=== PATIENT | female | born 1965 | race Caucasian/White ===

== ENCOUNTER 2023-10-09 08:22 | Outpatient (OUT) | payer OTHER, SELFPAY ==
--- NOTE | 2023-10-09 08:24 | MM_ITS ---
Patient Name: MEAGAN LANGE MR#: [id number] : 1965 Exam Date: 10/09/2023 Ordering Doctor: DR Machelle Harmon M.D. RADIOLOGY REPORT PROCEDURE: MM TOMOSYNTHESIS SCREENING BI COMPARISON: MG MAMM LINNETTE SCRN W CAD DIG, 08/10/2012. INDICATIONS: Screening Calculator Name NCI Breast Cancer Risk Assessment Tool 5 Year Breast Cancer Risk 1.40% Lifetime Breast Cancer Risk 8.70% Personal Breast Cancer No Personal Ovarian Cancer No Treatments None Family Cancers None LOCATION: The [facility] BREAST COMPOSITION: There are scattered areas of fibroglandular density. FINDINGS: DIAGNOSTIC CATEGORY 2--BENIGN FINDING. NO CHANGE FROM COMPARISON. Scattered benign-appearing calcifications are present. Scattered benign-appearing lymph nodes are present. RIGHT BREAST: No significant suspicious finding. LEFT BREAST: No significant suspicious finding. RECOMMENDATIONS: ROUTINE MAMMOGRAM AND CLINICAL EVALUATION IN 12 MONTHS. PLEASE NOTE: A NORMAL MAMMOGRAM DOES NOT EXCLUDE THE POSSIBILITY OF BREAST CANCER. A CLINICALLY SUSPICIOUS PALPABLE LUMP SHOULD BE BIOPSIED. Dictated by: Kedar White MD on 10/09/2023 at 11:11 Approved by: Kedar White MD on 10/09/2023 at 11:13
== END 2023-10-09 08:23 | disposition home or self-care (01) ==
LOC: MAMMO 08:22
PROVIDERS: PCP Family Medicine; Visit Provider Family Medicine
DX: Z12.31 Encounter for screening mammogram for malignant neoplasm of breast (principal)
CPT/HCPCS: 77063; 77067

== ENCOUNTER 2024-02-26 08:42 | Emergency (ER) | payer OTHER, SELFPAY ==
[2024-02-26] VITALS (20 sets, daily range): BP systolic 76–125; BP diastolic 47–79; PULSE 49–93; TEMP 36.8; O2SAT 90–97; BMI 28.3
--- NOTE | 2024-02-26 09:02 | ECG_ITS ---
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
--- NOTE | 2024-02-26 09:11 | ED.GENADUL1 ---
HPI HPI - General Adult General Chief complaint: Shortness of Breath/Dyspnea Stated complaint: DIFFICULTY BREATHING Time Seen by Provider: 02/26/24 09:03 Source: patient Mode of arrival: walk-in Limitations: no limitations History of Present Illness HPI narrative: Patient is a 58-year-old female who is presenting to the ER today with chief complaint of sinus congestion for the past 6 days, also has dry cough for the past 6 days, sore throat with sinus drainage. Patient has some midepigastric discomfort. She has no heavy chest pressure, no significant chest tightness. She does have chest wall pain with coughing. Patient has mild nausea, no vomiting. Patient has no rash. No recent traveling. No cardiac history. No acute complaints. Patient states she is having some numbness and tingling to bilateral hands, she is taking short shallow breaths, panting like a dog, and may be hyperventilating. All systems are negative except as noted/marked. All systems reviewed and otherwise negative. Nurses note and vital signs reviewed and patient is not hypoxic. General: The patient appears well and in no apparent distress. Patient is resting comfortably on cart. Patient is not toxic, lethargic, or listless Skin: Warm, dry, no pallor noted. There is no rash noted. No petechiae, purpura. Head: Normocephalic, atraumatic, mild to moderate tenderness to palpation to bilateral frontal maxillary sinus. Eye: Normal conjunctiva, no drainage, EOMI. PERRL Ears, Nose, Mouth, and Throat: oral mucosa is moist. Patient has redness to the posterior pharynx, moderate erythema, cobblestoning noted, no unilateral swelling, no signs of other intraoral pathology, no posterior pharyngeal exudate, petechiae. Nares patent. Mouth without vesicles. Cardiovascular: Regular Rate and Rhythm, no murmur, gallop, rub Respiratory: Patient is in no distress, no accessory muscle use, lungs equal bilateral, decreased breath sounds bilateral, faint wheezing to upper lobes bilateral, poor inspiratory effort. Back: non-tender, no CVA tenderness bilaterally to percussion. No CT LS midline pain GI: Mild midepigastric tenderness to palpation no tenderness to palpation, no masses appreciated. No rebound, guarding, or rigidity noted. No distention. No pulsatile mass. No flank pain bilateral. No peritoneal signs. No suprapubic tenderness palpation Musculoskeletal: Patient has full range of motion of all of the extremities, no motor, sensory, or focal neurological deficits Neurological: A&O x4, normal speech Psychiatric: Cooperative Related Data Home Medications ?Medication ?Instructions ?Recorded ?Confirmed No Known Home Medications 02/26/24 02/26/24 Allergies Allergy/AdvReac Type Severity Reaction Status Date / Time promethazine (From Phenergan) Allergy Anaphylaxis Verified 02/26/24 08:56 Opioid HPI Opioid Management Most Recent Opioid Data: No Data to Display PFSH PFSH Social History Little interest or pleasure in doing things: not at all Feeling down, depressed, or hopeless: not at all Exam Constitutional Vital Signs, click to edit/add: Last Vital Signs Temp 98.2 F 02/26/24 08:57 Pulse 82 02/26/24 13:26 Resp 34 H 02/26/24 13:26 BP 114/75 02/26/24 13:26 Pulse Ox 91 L 02/26/24 13:26 O2 Del Method Room Air 02/26/24 10:57 Course Vital Signs Vital signs: Vital Signs Pulse Oximetry 97 02/26/24 08:50 Temperature 98.2 F 02/26/24 08:57 Pulse Rate 82 02/26/24 13:26 Respiratory Rate 34 H 02/26/24 13:26 Blood Pressure 114/75 02/26/24 13:26 Pulse Oximetry 91 L 02/26/24 13:26 Oxygen Delivery Method Room Air 02/26/24 10:57 Medical Decision Making [facility] Narrative Medical decision making narrative: Patient is a smoker, patient is presenting with sinusitis, bronchitis symptoms. Patient has mild shortness of breath at rest or with exertion, the patient states she has pain taking a deep breath secondary to chest wall pain from coughing for the past 6 days. Patient's had a dry cough. Patient has used Sudafed 1 day, and Tylenol with little relief. Son is at bedside. Patient has no cardiac history. She has no heavy chest pressure, tightness, no other acute complaints. She does have sinus pressure to her forehead and cheeks. 1045 patient's repeat troponin was 38,343. The initial troponin was 34,000, 847. This was repeated because patient has no significant chest tightness, she does have shortness of breath with deep inspiration but she states is because of the chest wall pain secondary to coughing for the past 6 days. 1140 I have spoken to Dr. León. He is aware the case, accepts transfer and consultation. He agrees with aspirin, also recommends starting heparin drip and no bolus secondary to chest tightness, shortness of breath. 1245 3rd EKG was done, EKG interpretation shows normal sinus rhythm at 78 beats a minute. Normal axis deviation. Artifact noted. No acute ST elevation, no acute ectopy. QTc of 425. No ST elevation, no significant changes. Patient is having midepigastric pain, patient was given small dose of morphine to help take the edge off her pain, along with performing a CT of the chest abdomen pelvis to make sure not missing any other acute abnormality that could be liver related to patient's significantly elevated troponin. Patient does feel like she is breathing better after Toradol, Solu-Medrol, and DuoNeb breathing treatment was done. 1255 we are still waiting for a bed number at [facility], I did speak to Dr. Rosales 1235 and she is aware of the case and does agree and accept admission. Multiple bedside visits have been made. 3 different EKGs. 2 different troponins have been done. IV heparin drip with no bolus. Several phone calls [phone] we have a bed number at [facility], we are currently calling for EMS transfer. Patient has returned from the CTA of the chest abdomen pelvis. Patient has been given of aspirin and a heparin drip. Critical care time 55 minutes exclusive from separate billable procedures that were performed. The following was considered in the determination of critical care but not limited to the level of medical decision making, intensive cardiac and/or respiratory monitoring, frequent vital sign monitoring, evaluation of laboratory studies, evaluation of radiographic studies, oxygen monitoring, and constant monitoring and speaking to family at bedside Lab Data Lab results reviewed: Yes I reviewed the patient's lab results Labs: Lab Results 02/26/24 02/26/24 02/26/24 Range/Units 09:08 09:10 10:20 WBC 18.1 H (4.0-11.0) 10^3/uL RBC 4.26 (4.20-5.40) 10^6/uL Hgb 13.7 (12.0-16.0) g/dL Hct 40.5 (36.0-48.0) % MCV 95.1 (81.0-99.0) fL MCH 32.2 (26.7-34.0) pg MCHC 33.8 (29.9-35.2) g/dL RDW 13.1 (11.0-15.0) % Plt Count 314 (150-450) 10^3/uL MPV 9.1 L (9.5-13.5) fL Seg Neuts % (Manual) 70.0 (43.0-75.0) Lymphocytes % (Manual) 16.0 L (20.5-60.0) % Monocytes % (Manual) 14.0 H (1.7-12.0) % Eosinophils % (Manual) 0.0 L (0.9-7.0) % Basophils % (Manual) 0.0 L (0.2-2.0) % Neutrophils # (Manual) 12.67 H (1.4-6.5) 10^3/uL Lymphocytes # (Manual) 2.89 (1.20-3.80) 10^3/uL Monocytes # (Manual) 2.53 H (0.30-0.80) 10^3/uL Eosinophils # (Manual) 0.00 (0.00-0.70) 10^3/uL Basophils # (Manual) 0.00 (0.00-0.10) 10^3/uL Sodium 142 (136-145) mmol/L Potassium 3.8 (3.5-5.1) mmol/L Chloride 106 (98-107) mmol/L Carbon Dioxide 24.9 (21.0-32.0) mmol/L Anion Gap 14.9 BUN 10.0 (7.0-18.0) mg/dL Creatinine 0.56 (0.55-1.02) mg/dL Est GFR ( Amer) >60 (>=60 mL/min/1.73m^2) Est GFR (Non-Af Amer) >60 (>=60 mL/min/1.73m^2) BUN/Creatinine Ratio 17.9 Glucose 101 (74-106) mg/dL Calcium 8.4 L (8.5-10.1) mg/dL Total Bilirubin 0.6 (0.2-1.0) mg/dL AST 253 H (15-37) U/L ALT 45 (14-59) U/L Alkaline Phosphatase 60 (46-116) U/L Troponin I High Sens 56534.0 H* 43807.6 H* (4.0-51.3) pg/mL Total Protein 6.6 (6.4-8.2) g/dL Albumin 3.6 (3.4-5.0) g/dL Globulin 3.0 g/dL Albumin/Globulin Ratio 1.2 Influenza Type A Ag Negative Influenza Type B Ag Negative SARS-CoV-2 Ag (CV2AG) Negative (NEGATIVE) ECG Data Attestation: I personally reviewed and interpreted this ECG as follows: (EKG interpretation. Normal sinus rhythm at 52 beats a minute. Bradycardia. Normal axis deviation. No acute ST elevation, no acute ectopy. QTc of 397. Artifact seen.) Interpretation: Repeat EKG, EKG #2. Normal sinus rhythm at 57 beats a minute. Normal axis deviation. No acute ST elevation, no acute ectopy. QTc of 401. Discharge Plan Discharge Chief Complaint: Shortness of Breath/Dyspnea Clinical Impression: Non-ST elevation [place] (NSTEMI), Pneumonia, Sinusitis, Bronchitis, Tobacco abuse Patient Disposition: [facility] Time of Disposition Decision: 12:35 Discharge Location: [facility] Discharge location: [facility] Sheldon cardiology Condition: Critical
[2024-02-26 09:16] LABS: Hematocrit 40.5 % (36.0-48.0); Hemoglobin 13.7 g/dL (12.0-16.0); Mean Corpuscular HGB Conc 33.8 g/dL (29.9-35.2); Mean Corpuscular Hemoglobin 32.2 pg (26.7-34.0); Mean Corpuscular Volume 95.1 fL (81.0-99.0); Mean Platelet Volume 9.1 fL (9.5-13.5); Platelet Count 314 10^3/uL (150-450); Red Blood Count 4.26 10^6/uL (4.20-5.40); Red Cell Distribution Width 13.1 % (11.0-15.0); White Blood Count 18.1 10^3/uL (4.0-11.0)
--- NOTE | 2024-02-26 09:16 | XR_ITS ---
The [address] [address] Patient Name: MEAGAN LANGE MRN: [id number] date: 1965 Sex: F Assigned Patient Location: ER Current Patient Location: ER Accession/Order Number: [id number] Exam Date: 02/26/2024 09:10 Report Date: 02/26/2024 09:22 At the request of: JAY MOSLEY Procedure: XR chest 1V EXAMINATION: XR chest 1V HISTORY: sob COMPARISON: No relevant comparison available. FINDINGS: LUNGS: Underexpanded lungs with mild opacities within lateral left lung base obscuring the costophrenic angle. VASCULATURE: No increased pulmonary vasculature. PLEURA: No pneumothorax, effusion, or pleural thickening. CARDIAC: No cardiomegaly or cardiac silhouette abnormality. MEDIASTINUM: No visible mass or adenopathy. BONES: No fracture or visible bone lesion. OTHER: Negative. XR/XR chest 1V IMPRESSION: 1. Low lung volume examination with mild lingular infiltrates versus atelectasis. Electronically authenticated by: LYNDSEY REED Date: 02/26/2024 09:22
[2024-02-26 09:31] LABS: Alanine Aminotransferase 45 U/L (14-59); Albumin Globulin Ratio 1.2; Albumin Level 3.6 g/dL (3.4-5.0); Alkaline Phosphatase 60 U/L (46-116); Anion Gap 14.9; Aspartate Amino Transferase 253 U/L (15-37); BUN Creatinine Ratio 17.9; Bilirubin Total 0.6 mg/dL (0.2-1.0); Calcium 8.4 mg/dL (8.5-10.1); Carbon Dioxide 24.9 mmol/L (21.0-32.0); Chloride 106 mmol/L (98-107); Estimated GFR (African America >60 (>=60 mL/min/1.73m^2); Estimated GFR (Non-African Ame >60 (>=60 mL/min/1.73m^2); Glucose 101 mg/dL (74-106); Potassium 3.8 mmol/L (3.5-5.1); Sodium 142 mmol/L (136-145); Total Protein 6.6 g/dL (6.4-8.2)
[2024-02-26 09:43] LABS: Lymphocytes Absolute Manual 2.89 10^3/uL (1.20-3.80); Monocytes Absolute Manual 2.53 10^3/uL (0.30-0.80); Segmented Neut Absolute Manual 12.67 10^3/uL (1.4-6.5)
[2024-02-26 09:45] LABS: Influenza Virus A Antigen Negative; Influenza Virus B Antigen Negative; Internal Control Within Normal Limits; SARS-CoV-2 Ag NEGATIVE (NEGATIVE)
[2024-02-26] MEDS: IPRATROPIUM/ALBUTEROL SULFATE 3 ML AMPUL.NEB IH (10:18)
[2024-02-26] MEDS: FAMOTIDINE/PF 20 MG/2 ML VIAL IV (10:28)
[2024-02-26] MEDS: METHYLPREDNISOLONE SOD SUCC PF 125 MG/2 ML VIAL IVP (10:29)
[2024-02-26] MEDS: ONDANSETRON PF 4 MG/2 ML VIAL IV (10:29)
[2024-02-26 10:52] LABS: Troponin I High Sensitivity 38343.6 pg/mL (4.0-51.3)
--- NOTE | 2024-02-26 11:05 | ECG_ITS ---
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
[2024-02-26] MEDS: ASPIRIN 81 MG TAB.CHEW 162 MG PO (11:41)
[2024-02-26] MEDS: CEFTRIAXONE 1,000 MG in 0.9 % SODIUM CHLORIDE 50 ML 100 MG IV (11:42)
[2024-02-26] MEDS: AZITHROMYCIN 500 MG in 0.9 % SODIUM CHLORIDE 250 ML 250 MG IV (12:06)
--- NOTE | 2024-02-26 12:45 | ECG_ITS ---
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 Electronically Signed On 02-27-2024 7:59:21 EST by SENDY MEDEIROS
--- NOTE | 2024-02-26 12:46 | PC.NURSE ---
Patient complains of chest pain, states it's like fire from my stomach . Dr. Caldwell notified. EKG completed as ordered.
--- NOTE | 2024-02-26 12:48 | CT_ITS ---
[address] [address] Patient Name: MEAGAN LANGE MRN: [id number] date: 1965 Sex: F Assigned Patient Location: ER Current Patient Location: [facility] Accession/Order Number: [id number] Exam Date: 02/26/2024 13:00 Report Date: 02/26/2024 13:58 At the request of: JAY MOSLEY Procedure: CT angio chest EXAMINATION: CT angio chest, CT angio abdomen pelvis HISTORY: Midepigastric pain COMPARISON: No relevant comparison available. TECHNIQUE: After obtaining the patient's consent, CT images of the chest, abdomen and pelvis were obtained with non-ionic intravenous contrast material. Axial, Coronal, and Sagittal images. Multi-planar reformatted/3-D images were created to optimize visualization of vascular anatomy. Dose reduction techniques were achieved by using automated exposure control and/or adjustment of mA and/or kV according to patient size and/or use of iterative reconstruction technique. FINDINGS: PULM VASC: No pulmonary embolism or abnormal opacity. LUNGS: Trace amount of atelectasis versus infiltrates within lung bases. PLEURA: No mass, effusion, or pneumothorax. DIMA: No mass or adenopathy. MEDIASTINUM: No mass or adenopathy. CARDIAC: No enlargement, pericardial effusion, or pericardial thickening. CHEST WALL: No mass or axillary adenopathy. AORTA/VASCULAR: No aneurysm or dissection. CELIAC ARTERY: Normal celiac vessels. SMA: Normal mesenteric vessels. RENAL ARTERIES: Normal renal vessels. LIVER: No enlargement, atrophy, abnormal density, or significant focal lesion. BILIARY: Cholecystectomy. PANCREAS: No lesion, fluid collection, ductal dilatation, or atrophy. SPLEEN: No enlargement or focal lesion. ADRENALS: Identified hypertrophy of left gland. Unremarkable right gland. KIDNEYS: No mass, obstruction, or calcification. BOWEL/MESENTERY: No visible mass, obstruction, or bowel wall thickening. RETROPERITONEUM: No mass or adenopathy. LYMPHNODES: No pelvic adenopathy. BLADDER: No stones or focal wall thickening. PELVIC ORGANS: Hysterectomy. Small amount of free fluid within pelvic cul-de-sac; nonspecific. ABDOMINAL WALL: No mass or hernia. BONES: No bony lesion or fracture. Mild curvature lumbar spine. Mild grade 1 anterolisthesis of L4 on 5. OTHER: Negative. CT/CT angio chest IMPRESSION: 1. No acute or specific findings within the chest, abdomen, or pelvis to account for patient's symptoms. 2. Trace amount free fluid within pelvic cul-de-sac; nonspecific. No acute or suspicious abdominal findings to account for the free fluid. Electronically authenticated by: LYNDSEY REED Date: 02/26/2024 13:58
--- NOTE | 2024-02-26 12:48 | CT_ITS ---
[address] [address] Patient Name: MEAGAN LANGE MRN: [id number] date: 1965 Sex: F Assigned Patient Location: ER Current Patient Location: [facility] Accession/Order Number: [id number] Exam Date: 02/26/2024 13:00 Report Date: 02/26/2024 13:58 At the request of: JAY MOSLEY Procedure: CT angio abdomen pelvis EXAMINATION: CT angio chest, CT angio abdomen pelvis HISTORY: Midepigastric pain COMPARISON: No relevant comparison available. TECHNIQUE: After obtaining the patient's consent, CT images of the chest, abdomen and pelvis were obtained with non-ionic intravenous contrast material. Axial, Coronal, and Sagittal images. Multi-planar reformatted/3-D images were created to optimize visualization of vascular anatomy. Dose reduction techniques were achieved by using automated exposure control and/or adjustment of mA and/or kV according to patient size and/or use of iterative reconstruction technique. FINDINGS: PULM VASC: No pulmonary embolism or abnormal opacity. LUNGS: Trace amount of atelectasis versus infiltrates within lung bases. PLEURA: No mass, effusion, or pneumothorax. DIMA: No mass or adenopathy. MEDIASTINUM: No mass or adenopathy. CARDIAC: No enlargement, pericardial effusion, or pericardial thickening. CHEST WALL: No mass or axillary adenopathy. AORTA/VASCULAR: No aneurysm or dissection. CELIAC ARTERY: Normal celiac vessels. SMA: Normal mesenteric vessels. RENAL ARTERIES: Normal renal vessels. LIVER: No enlargement, atrophy, abnormal density, or significant focal lesion. BILIARY: Cholecystectomy. PANCREAS: No lesion, fluid collection, ductal dilatation, or atrophy. SPLEEN: No enlargement or focal lesion. ADRENALS: Identified hypertrophy of left gland. Unremarkable right gland. KIDNEYS: No mass, obstruction, or calcification. BOWEL/MESENTERY: No visible mass, obstruction, or bowel wall thickening. RETROPERITONEUM: No mass or adenopathy. LYMPHNODES: No pelvic adenopathy. BLADDER: No stones or focal wall thickening. PELVIC ORGANS: Hysterectomy. Small amount of free fluid within pelvic cul-de-sac; nonspecific. ABDOMINAL WALL: No mass or hernia. BONES: No bony lesion or fracture. Mild curvature lumbar spine. Mild grade 1 anterolisthesis of L4 on 5. OTHER: Negative. CT/CT angio abdomen pelvis IMPRESSION: 1. No acute or specific findings within the chest, abdomen, or pelvis to account for patient's symptoms. 2. Trace amount free fluid within pelvic cul-de-sac; nonspecific. No acute or suspicious abdominal findings to account for the free fluid. Electronically authenticated by: LYNDSEY REED Date: 02/26/2024 13:58
[2024-02-26] MEDS: HEPARIN SODIUM,PORCINE/D5W 25,000 UNIT/500 ML IV.SOLN 14 UNIT IV (12:57)
--- NOTE | 2024-02-26 14:30 | PC.NURSE ---
[facility] arrives at this time, report given to EMS.
--- NOTE | 2024-02-26 14:43 | PC.NURSE ---
Report called to MARITZA Hicks at [facility].
== END 2024-02-26 14:47 | disposition short-term general hospital (02) ==
PROVIDERS: Emergency Provider Emergency Medicine; PCP Family Medicine
DX: I21.4 Non-ST elevation (NSTEMI) myocardial infarction (principal); J18.9 Pneumonia, unspecified organism; J32.9 Chronic sinusitis, unspecified; J40 Bronchitis, not specified as acute or chronic; F17.200 Nicotine dependence, unspecified, uncomplicated; Z90.49 Acquired absence of other specified parts of digestive tract; Z90.710 Acquired absence of both cervix and uterus; R10.13 Epigastric pain
CPT/HCPCS: 36415; 71045; 71275; 74174; 80053; 84484; 85007; 85027; 87804; 87811; 93005; 94640; 96365; 96366; 96368; 96375; 99285; J0456; J0696; J1644; J2405; J2919; Q9967

== ENCOUNTER 2024-09-11 07:12 | Emergency (ER) | payer BC, SELFPAY ==
[2024-09-11 07:15] VITALS: BP 120/75; PULSE 72; TEMP 36.8; O2SAT 98; BMI 26.4
--- OUTSIDE RECORDS SUMMARY | 2024-09-11 07:22 | XMS_ITS | CCD ---
Author Organization [facility] CliniSyde Care Team Providers Care Technical Internship Name Role Phone DR BECKIE BALDERRAMA Primary Care Unavailable CONCHIS, DR BECKIE Crane Admitting Unavailable CONCHIS, DR BECKIE Crane Attending Unavailable CONCHIS, DR BECKIE Crane Consulting Unavailable CONCHIS, DR BECKIE Crane Primary Care Unavailable JAN, DR TIERNEY Attending Unavailable JAN, DR TIERNEY Consulting Unavailable JAN, DR TIERNEY Admitting Unavailable Beckie Balderrama Unavailable Beckie Balderrama MD Primary Care Provider Madison Munson MD Admit Provider Nury Miranda RN Other Provider Unavailable Kierra Mendiola DO Other Provider Asha Botello MD Other Provider Prabhjot Bay MD Other Provider Monique aTdeo MD Other Provider Socrates Melgoza MD Other Provider Yesenia Stockton APRN Other Provider Luz Fall MD Other Provider Nolan RASHID, Ai Chua Other Provider Opal Hamilton MD Other Provider Mike [facility] Other Provider Javier Leon MD Attending Provider Jocelyne Zurita RN Unavailable Unavailable Beckie Balderrama MD Primary Care Provider Nury Miranda Consulting Unavailable Javier Leon Attending Unavailable Beckie Balderrama Primary Care Unavailable Madison Munson Admitting Unavailable Kierra Mendiola Consulting Unavailable Asha Botello Consulting Unavailable Prabhjot [place] Consulting Unavail able Monique Tadeo Consulting Unavailable Socrates Melgoza Consulting Unavailab Yesenia Santillan Consulting Unavailable Luz Fall Consulting Unavailable Ai Francisco Consulting Unavailab Opal Trevizo Consulting Unavailable Kandace Mckeon Consulting Unavailable PRABHJOT MENDIOLA Attending Unavailable PRABHJOT MENDIOLA Referring Unavailable BECKIE BALDERRAMA Primary Care Unavailable PRABHJOT MENDIOLA Attending Unavailable BECKIE BALDERRAMA Primary Care Unavailable Allergies Allergy Classification Reported Allergen(s) Allergy Type Date of Onset Reaction(s) Facility (1 source) Levamisole Drug Allergy 10-04-19 13 [facility] Repository (7 sources) methylPREDNISolone Drug Allergy 10-07-19 24 Unknown, Hives [facility] (10 sources) Promethazine; Translations: [PROMETHAZINE] Drug Allergy 10-07-19 24 Anaphylaxis [facility] (1 source) methylPREDNISolone Drug Allergy 03-01-19 [facility] Repository (1 source) Promethazine Drug Allergy 03-01-19 [facility] Repository Medications Current Medications Medication Drug Class(es) Dates Sig (Normalized) Sig (Original) aspirin 81 mg chewable tablet (6 sources) Platelet Aggregation Inhibitor, Nonsteroidal Anti-inflammatory Drug Start: 02-29-2024 End: 03-14-2025 aspirin 81 mg chewable tablet Indications: ASHD (arteriosclerotic heart disease) , Myocardial infarction, unspecified [place] type, unspecified artery (Multi) , Coronary arteriosclerosis after percutaneous transluminal coronary angioplasty (PTCA) Chew 1 tablet (81 mg) early in the morning.. 90 tablet 3 03/14/2024 03/14/2025 Active atorvastatin 80 mg oral tablet (8 sources) HMG-CoA Reductase Inhibitor Start: 02-29-2024 End: 03-14-2025 take 1 tablet by mouth once daily at bedtime atorvastatin (Lipitor) 80 mg tablet Indications: ASHD (arteriosclerotic heart disease) , Myocardial infarction, unspecified [place] type, unspecified artery (Multi) , Coronary arteriosclerosis after percutaneous transluminal coronary angioplasty (PTCA) Take 1 tablet (80 mg) by mouth once daily at bedtime. 90 tablet 3 03/14/2024 03/14/2025 Active azithromycin 250 mg oral tablet (2 sources) Macrolide Antimicrobial Start: 04-17-2022 Azithromycin 250 MG as directed Orally 2 tabs po today, then 1 tab daily x 4 more days for 5 Apr, Active 24 hr metoprolol succinate 50 mg extended release oral tablet (7 sources) beta-Adrenergic Jayne Start: 05-30-2024 take 2 tablets by mouth once daily Metoprolol Succinate (Toprol Xl) 50 mg tablet extended release 24 hr Active 25 MG PO Daily May 30, 2024 9:40am Start: 03-14-2024 End: 03-14-2025 take 1 tablet by mouth once daily metoprolol succinate XL (Toprol-XL) 25 mg 24 hr tablet Indications: ASHD (arteriosclerotic heart disease) , Myocardial infarction, unspecified [place] type, unspecified artery (Multi) , Coronary arteriosclerosis after percutaneous transluminal coronary angioplasty (PTCA) Take 1 tablet (25 mg) by mouth once daily. Do not crush or chew. 90 tablet 3 03/14/2024 03/14/2025 Active Start: 02-29-2024 End: 03-14-2024 take 1 tablet by mouth every twenty-four hours in the morning metoprolol succinate XL (Toprol-XL) 50 mg 24 hr tablet Take 1 tablet (50 mg) by mouth early in the morning.. 02/29/2024 03/14/2024 Discontinued (Dose adjustment) Start: 02-29-2024 End: 05-30-2024 take 1 tablet by mouth once daily Metoprolol Succinate (Toprol Xl) 50 mg tablet extended release 24 hr Discontinued 50 MG PO Daily February 29, 2024 1:00am May 30, 2024 9:41am nitroglycerin 0.4 mg sublingual tablet (5 sources) Nitrate Vasodilator Start: 02-29-2024 nitroglycerin (Nitrostat) 0.[address] 1 tablet (0.4 mg) under the tongue every 5 minutes if needed. 02/29/2024 Active ticagrelor 90 mg oral tablet (6 sources) Start: 02-29-2024 End: 03-14-2025 take 1 tablet by mouth every twelve hours Brilinta 90 mg tablet Indications: ASHD (arteriosclerotic heart disease) , Myocardial infarction, unspecified [place] type, unspecified artery (Multi) , Coronary arteriosclerosis after percutaneous transluminal coronary angioplasty (PTCA) Take 1 tablet (90 mg) by mouth every 12 hours. 180 tablet 3 03/14/2024 03/14/2025 Active tiZANidine 2 mg oral tablet (6 sources) Central alpha-2 Adrenergic Agonist Start: 12-03-2023 take 1 tablet by mouth three times daily as needed tiZANidine (Zanaflex) 2 mg tablet Take 1 tablet (2 mg) by mouth 3 times a day. PRN 12/03/2023 Active Start: 12-03-2023 End: 03-02-2024 take 1 tablet by mouth every eight hours as needed Tizanidine 2 mg tablet Discontinued 2 MG PO Every 8 hours as needed for muscle spasticity December 03, 2023 12:00am March 02, 2024 11:01am valACYclovir 1000 mg oral tablet (10 sources) Herpesvirus Nucleoside Analog DNA Polymerase Inhibitor, Herpes Simplex Virus Nucleoside Analog DNA Polymerase Inhibitor, Herpes Zoster Virus Nucleoside Analog DNA Polymerase Inhibitor Start: 10-28-2023 take 2 tablets by mouth every twelve hours as needed valACYclovir (Valtrex) 1 gram tablet Take 2 tablets (2,000 mg) by mouth every 12 hours. PRN 10/28/2023 Active Start: 10-28-2023 End: 03-02-2024 Valacyclovir 1 gram tablet Discontinued 2000 MG PO Twice daily October 28, 2023 9:44am March 02, 2024 11:01am Start: 10-28-2023 End: 10-28-2023 take 2000 mg by mouth twice daily Valacyclovir Active 2000 MG PO Twice daily October 28, 2023 9:44am valsartan 40 mg oral tablet (6 sources) Angiotensin 2 Receptor Jayne Start: 02-29-2024 End: 03-14-2025 take 1 tablet by mouth once daily valsartan (Diovan) 40 mg tablet Indications: ASHD (arteriosclerotic heart disease) , Myocardial infarction, unspecified [place] type, unspecified artery (Multi) , Coronary arteriosclerosis after percutaneous transluminal coronary angioplasty (PTCA) Take 1 tablet (40 mg) by mouth once daily. 90 tablet 3 03/14/2024 03/14/2025 Active Completed/Discontinued Medications Medication Drug Class(es) Dates Sig (Normalized) Sig (Original) ascorbic acid 500 mg oral tablet (5 sources) Vitamin C Start: 02-26-2024 End: 03-02-2024 take 1 tablet by mouth once daily Ascorbic Acid (Vitamin C) (Vitamin C) 500 mg tablet Discontinued 500 MG PO Daily February 26, 2024 1:00am March 02, 2024 10:59am take 1 capsule by mouth once sarwat ly ascorbic acid (Vitamin C) 500 mg ER capsule Take 1 capsule (500 mg) by mouth once daily. Active cholecalciferol 0.125 mg oral tablet (5 sources) Vitamin D Start: 02-26-2024 End: 03-02-2024 take 1 tablet by mouth once daily Cholecalciferol (Vitamin D3) (Vitamin D3) 125 mcg (5,000 unit) tablet Discontinued 5000 UNIT PO Daily February 26, 2024 1:00am March 02, 2024 11:00am take 1 tablet by mouth once stefania y cholecalciferol (Vitamin D3) 25 MCG (1000 UT) tablet Take 1 tablet (1,000 Units) by mouth once daily. Active ciprofloxacin 3 mg/ml ophthalmic solution (6 sources) Quinolone Antimicrobial Start: 10-07-2023 End: 12-03-2023 Ciprofloxacin Hcl 0.3 % drops Discontinued 0 OPHTHALMIC .COMPLEX October 07, 2023 12:00am December 03, 2023 11:04am put 1-2 drps in affected eye(s) every 2hr up to 8 times/day x2days; then 4 times/day x5days Eye-Both Start: 05-16-2022 Ciprofloxacin HCl 0.3 % as directed Ophthalmic tid for 5 Apr, Active Sod Picosulf-Mag Ox-Citric Ac (8 sources) Start: 10-13-2023 End: 02-26-2024 take 1 mL by mouth once daily in the morning Sod Picosulf-Mag Ox-Citric Ac (Clenpiq) 10 mg-3.5 gram- 12 gram/175 mL solution Discontinued 175 ML PO Every morning 350 October 13, 2023 4:43pm February 26, 2024 5:33pm Please follow instructions given by office. Start: 10-13-2023 End: 02-26-2024 take 1 mL by mouth once daily in the morning Sod Picosulf-Mag Ox-Citric Ac (Clenpiq) 10 mg-3.5 gram- 12 gram/175 mL solution Discontinued 175 ML PO Every morning 350 1 October 13, 2023 3:43pm February 26, 2024 4:33pm Please follow instructions given by office. Start: 10-13-2023 take 1 mL by mouth o nce daily in the morning Sod Picosulf-Mag Ox-Citric Ac (Clenpiq) 10 mg-3.5 gram- 12 gram/175 mL solution Active 175 ML PO Every morning 350 October 13, 2023 4:43pm Please follow instructions given by office. Start: 10-13-2023 End: 10-13-2023 take 1 mL by mouth once daily in the morning Sod Picosulf-Mag Ox-Citric Ac (Clenpiq) 10 mg-3.5 gram- 12 gram/175 mL solution Discontinued 175 ML PO Every morning 175 October 12, 2023 11:00pm October 13, 2023 3:44pm Please follow instructions given by office. Start: 10-13-2023 End: 10-13-2023 take 1 mL by mouth once daily in the morning Sod Picosulf-Mag Ox-Citric Ac (Clenpiq) 10 mg-3.5 gram- 12 gram/175 mL solution Discontinued 175 ML PO Every morning 175 October 13, 2023 12:00am October 13, 2023 4:44pm Please follow instructions given by office. terbinafine 250 mg oral tablet (5 sources) Allylamine Antifungal Start: 10-07-2023 End: 12-03-2023 take 1 tablet by mouth once daily Terbinafine Hcl 250 mg tablet Discontinued 250 MG PO daily October 07, 2023 12:00am December 03, 2023 11:04am Problems Active Problems Problem Classification Problem Date Documented Da te Episodic/Chronic Acute myocardial infarction (14 sources) Myocardial infarction; Translations: [Non-ST elevation (NSTEMI) myocardial infarction] Onset: 02-26-2024 02-28-2024 Chronic Anxiety disorders (2 sources) Anxiety; Translations: [Anxiety disorder, unspecified] Chronic Coronary atherosclerosis and other heart disease (20 sources) Acute coronary syndrome; Translations: [Acute ischemic heart disease, unspecified] Onset: 02-26-2024 02-27-2024 Chronic Coronary atherosclerosis and other heart disease (2 sources) Coronary angioplasty status; Translations: [Coronary angioplasty status] Onset: 03-14-2024 Episodic Influenza (1 source) Influenza due to unidentified influenza virus with other respiratory manifestations; Translations: [FLU D/T UNIDENT FLU VIR RESP MANIF] Onset: 02-07-2022 Episodic Malaise and fatigue (3 sources) Fatigue; Translations: [Chronic fatigue, unspecified] Onset: 03-14-2024 03-14-2024 Chronic Other connective tissue disease (2 sources) Disorder of soft tissue; Translations: [Other specified soft tissue disorders] Episodic Other gastrointestinal disorders (1 source) Diarrhea, unspecified Episodic Other non-traumatic joint disorders (5 sources) Pain in left shoulder; Translations: [Left shoulder pain] 12-03-2023 Episodic Other nutritional; endocrine; and metabolic disorders (4 sources) Overweight in adulthood with body mass index of 25 or more but less than 30; Translations: [Body mass index (BMI) 27.0-27.9, adult] Onset: 03-14-2024 03-14-2024 Episodic Other nutritional; endocrine; and metabolic disorders (2 sources) Body mass index (BMI) 26.0-26.9, adult; Translations: [Body mass index (BMI) 26.0-26.9, adult] Onset: 09-07-2024 Episodic Other screening for suspected conditions (not mental disorders or infectious disease) (18 sources) Encounter for screening for malignant neoplasm of cervix; Translations: [Patient encounter status] Onset: 05-09-2021 Episodic Other upper respiratory infections (3 sources) Maxillary sinusitis; Translations: [Chronic maxillary sinusitis] Chronic Prolapse of female genital organs (2 sources) Cystocele; Translations: [Cystocele, unspecified] Chronic Residual codes; unclassified (2 sources) Postmenopausal state; Translations: [Asymptomatic menopausal state] Episodic Residual codes; unclassified (2 sources) Insomnia; Translations: [Insomnia, unspecified] Episodic Residual codes; unclassified (3 sources) Tobacco user; Translations: [Tobacco use] 02-28-2024 Episodic Residual codes; unclassified (4 sources) Tobacco use; Translations: [Tobacco use disorder] Onset: 02-26-2024 02-29-2024 Episodic Spondylosis; intervertebral disc disorders; other back problems (5 sources) Low back pain; Translations: [Radiculopathy, lumbar region] 12-03-2023 Episodic Substance-related disorders (6 sources) Smoker; Translations: [Nicotine dependence, unspecified, uncomplicated] Onset: 03-14-2024 03-14-2024 Chronic Unclassified (3 sources) CONTACT W/AND (SUSP) EXPOS COVID-19; Translations: [CONTACT W/AND (SUSP) EXPOS COVID-19] Onset: 02-07-2022 Past or Other Problems Problem Classification Problem Date Documented Date Episodic/Chronic Immunizations and screening for infectious disease (1 source) Encounter for screening for human papillomavirus (HPV); Translations: [ENC SCREENING HUMAN PAPILLOMAVIRUS] Onset: 05-13-2021 Episodic Malaise and fatigue (2 sources) Fatigue; Translations: [Other fatigue] Onset: 03-14-2024 03-14-2024 Episodic Other nutritional; endocrine; and metabolic disorders (2 sources) Body mass index (BMI) 27.0-27.9, adult; Translations: [Body mass index (BMI) 27.0-27.9, adult] Onset: 03-14-2024 Episodic Unclassified (1 source) CONTACT W/AND (SUSP) EXPOS COVID-19; Translations: [CONTACT W/AND (SUSP) EXPOS COVID-19] Onset: 02-03-2022 Results Test Name Value Interpretation Reference Range Facility Basic Metabolic Panelon 02-16 Anion gap [Moles/Vol] 13.2 mmol/L Normal 6.0-15.0 [facility] Comment on above: Performed By: #### B MP, CBC #### [facility] [address] [place] [address] [place] Calcium [Mass/Vol] 8.9 mg/dL Normal 8.6-10.3 [facility] Comment on above: Performed By: #### B MP, CBC #### [facility] [address] [place] [address] [place] Chloride [Moles/Vol] 108 mmol/L High 98-107 [facility] Comment on above: Performed By: #### B MP, CBC #### [facility] [address] [place] [address] [place] CO2 [Moles/Vol] 23.6 mmol/L Normal 21.0-31.0 [facility] Comment on above: Performed By: #### B MP, CBC #### [address] Creatinine [Mass/Vol] 0.49 mg/dL Low 0.60-1.20 [facility] Comment on above: Performed By: #### B MP, CBC #### [place] [address] [place] Creatinine Clr Calc Pharmacy 108.42 Normal [facility] Comment on above: Result Comment: PERF ORMED BY: [place] [address] PATHOLOGIST [employer]OL ROOFING INSTALLER VIDAL MORIN M.D. Performed By: #### B MP, CBC #### [place] [address] [place] GFR/1.73 sq M.predicted MDRD (S/P/Bld) [Vol rate/Area] mL/min/{1.73_m2} Normal [facility] Comment on above: Performed By: #### B MP, CBC #### [place] [address] [place] Glucose [Mass/Vol] 106 mg/dL High 70-100 [facility] Comment on above: Result Comment: [place] Glucose Reference Range is dependent on time and content of last meal. Glucose of more than 200 mg/dL in a nonstressed, ambulatory subject supports the diagnosis of Diabetes Mellitus. ADA recommended reference range Performed By: #### B MP, CBC #### [place] [address] [place] Potassium [Moles/Vol] 3.8 mmol/L Normal 3.5-5.1 [facility] Comment on above: Performed By: #### B MP, CBC #### [place] [address] [place] Sodium [Moles/Vol] 141 mmol/L Normal 136-145 [facility] Comment on above: Performed By: #### B MP, CBC #### [place] [address] [place] Urea nitrogen [Mass/Vol] 12 mg/dL Normal 7-25 [facility] Comment on above: Performed By: #### B MP, CBC #### [facility] [address] Basophils Auto (Bld) [#/Vol] Ordered By: Madison Munson on 02-29-2024 Basophils (Bld) [#/Vol] Automated basoph il count 0.0-0.2 [facility] Basophils/100 WBC Auto (Bld) Ordered By: Madison Munson on 02-29-2024 Basophils/100 WBC (Bld) Automated basophil % . [facility] Calcium [Mass/volume] in Ser um or PlasmaOrdered By: Madison Munson on 02-29-2024 Calcium [Mass/Vol] Calcium [Mass/volume ] in Serum or Plasma 8.6-10.3 [facility] Carbon dioxide, total [Moles /volume] in Serum or PlasmaOrdered By: Madison Munson on 02-29-2024 CO2 [Moles/Vol] Carbon dioxide, tota l [Moles/volume] in Serum or Plasma 21.0-31.0 [facility] Chloride [Moles/volume] in S apoorva or PlasmaOrdered By: Madison Munson on 02-29-2024 Chloride [Moles/Vol] Chloride [Moles/volume] in Serum or Plasma High 98-107 [facility] Complete Blood Count Auto Di ffon 02-29-2024 Basophils (Bld) [#/Vol] 0.1 10*3/uL Normal 0.0-0.2 [facility] Comment on above: Result Comment: PERF ORMED BY: [facility] [address] [place] [address] PATHOLOGIST [employer] ROOFING INSTALLER VIDAL MORIN M.D. Performed By: #### B MP, CBC #### [address] Basophils/100 WBC (Bld) 0.8 % Normal . [facility] Comment on above: Performed By: #### B MP, CBC #### [facility] [address] Eosinophils (Bld) [#/Vol] 0.1 10*3/uL Normal 0.0-0.45 [facility] Comment on above: Performed By: #### B MP, CBC #### [address] Eosinophils/100 WBC (Bld) 0.9 % Normal . [facility] Comment on above: Performed By: #### B MP, CBC #### [address] Erythrocyte distribution width (RBC) [Ratio] 13.2 % Normal 11.9-15.3 [facility] Comment on above: Performed By: #### B MP, CBC #### [address] Hematocrit (Bld) [Volume fraction] 38.3 % Normal 34.0-46.4 [facility] Comment on above: Performed By: #### B MP, CBC #### [address] Hemoglobin (Bld) [Mass/Vol] 12.7 g/dL Normal 11.8-15.4 [facility] Comment on above: Performed By: #### B MP, CBC #### [address] Lymphocytes (Bld) [#/Vol] 2.8 10*3/uL Normal 1.00-4.8 [facility] Comment on above: Performed By: #### B MP, CBC #### [address] Lymphocytes/100 WBC (Bld) 20.5 % Normal . [facility] Comment on above: Performed By: #### B MP, CBC #### [address] MCH (RBC) [Entitic mass] 31.0 pg Normal 24.7-34.3 [facility] Comment on above: Performed By: #### B MP, CBC #### [address] MCV (RBC) [Entitic vol] 93.6 fL Normal 80-100 [facility] Comment on above: Performed By: #### B MP, CBC #### [address] Mean Corpuscular HGB Conc 33.1 g/dL Normal 32.0-35.0 [facility] Comment on above: Performed By: #### B MP, CBC #### [address] Monocytes (Bld) [#/Vol] 1.4 10*3/uL High 0.0-0.8 [facility] Comment on above: Performed By: #### B MP, CBC #### [address] Monocytes/100 WBC (Bld) 10.1 % Normal . [facility] Comment on above: Performed By: #### B MP, CBC #### [address] Neutrophils (Bld) [#/Vol] 9.2 10*3/uL High 1.8-7.7 [facility] Comment on above: Performed By: #### B MP, CBC #### [address] Neutrophils/100 WBC (Bld) 67.7 % Normal . [facility] Comment on above: Performed By: #### B MP, CBC #### [address] NRBC% 0.0 /100{WBC} Normal 0-0.5 [facility] Comment on above: Performed By: #### B MP, CBC #### [address] Platelet mean volume (Bld) [Entitic vol] 8.1 fL Normal 6.3-10.7 [facility] Comment on above: Performed By: #### B MP, CBC #### [address] Platelets (Bld) [#/Vol] 317 10*3/uL Normal 150-450 [facility] Comment on above: Performed By: #### B MP, CBC #### [facility] [address] RBC (Bld) [#/Vol] 4.09 10*6/uL Normal 3.60-5.00 [facility] Comment on above: Performed By: #### B MP, CBC #### [facility] [address] WBC (Bld) [#/Vol] 13.5 10*3/uL High 3.8-11.6 [facility] Comment on above: Performed By: #### B MP, CBC #### [address] Creatinine [Mass/volume] in Serum or PlasmaOrdered By: Madison Munsno on 02-29-2024 Creatinine [Mass/Vol] Creatinine [Mass/volume] in Serum or Plasma Low 0.60-1.20 [facility] ECG 12 lead ECGon 02-29-2024 ECG 12 lead ECG [facility] [place] [address] [place] [address] Electrocardiograph Report Signed Patient: Angela Radford MR#: [id number] : 1965 Acct:[id number] Age/Sex: 58 / F ADM Date: 02/26/24 Loc: Room: [address] [place] [address] Type: ADM IN Attending Dr: Javier Leon MD Ordering Provider: Kierra Mendiola DO Date of Service: 02/28/2402/09/1314 ECG/ECG 12 lead ECG: Post Angioplasty Procedure Copies to: Test Reason : Blood Pressure : */* mmHG Vent. Rate : 66 BPM Atrial Rate : 66 BPM P-R Int : 156 ms QRS Dur : 82 ms QT Int : 394 ms P-R-T Axes : 35 -13 -53 degrees QTcB Int : 413 ms Normal sinus rhythm with sinus arrhythmia Low voltage QRS Inferior infarct (cited on or before 27-Feb-2024) Abnormal ECG When compared with ECG of 27-Feb-2024 20:52, No significant change was found Confirmed by LANRE RASHID [facility], ASHA ([id number]) on 02/29/2024 9:20:38 AM Referred By: Electronically Signed By: ASHA BOTELLO MD [facility] Transcribed By: MUS Signed By Asha Botello MD, [facility] 02/29/24 0920 Normal [facility] Eosinophils Auto (Bld) [#/Vo l]Ordered By: Madison Munson on 02-29-2024 Eosinophils (Bld) [#/Vol] Automated eosinophil count 0.0-0.45 [facility] Eosinophils/100 WBC Auto (Bl d)Ordered By: Madison Munson on 02-29-2024 Eosinophils/100 WBC (Bld) Automated eosinophil % . [facility] Erythrocyte distribution wid th Auto (RBC) [Ratio]Ordered By: Madison Munson on 02-29-2024 Erythrocyte distribution width (RBC) [Ratio] Erythrocyte distribution width [Ratio] by Automated count 11.9-15.3 [facility] Glucose [Mass/volume] in Ser um or PlasmaOrdered By: Madison Munson on 02-29-2024 Glucose [Mass/Vol] Glucose [Mass/volume ] in Serum or Plasma High 70-100 [facility] Comment on above: ADA recommended refe rence rangeRandom Glucose Reference Range is dependent on time and content of last meal. Glucose of more than 200 mg/dL in a nonstressed, ambulatory subject supports the diagnosis of Diabetes Mellitus. Hematocrit Auto (Bld) [Volum e fraction]Ordered By: Madison Munson on 02-29-2024 Hematocrit (Bld) [Volume fraction] Hematocrit [Volume Fraction] of Blood by Automated count 34.0-46.4 [facility] Hemoglobin [Mass/volume] in BloodOrdered By: Madison Munson on 02-29-2024 Hemoglobin (Bld) [Mass/Vol] Hemoglobin [Mass/volume] in Blood 11.8-15.4 [facility] Leukocytes [#/volume] correc kenzie for nucleated erythrocytes in Blood by Automated counOrdered By: Madison Munson on 02-29-2024 WBC corrected for nucl RBC Auto (Bld) [#/Vol] Leukocytes [#/volume] corrected for nucleated erythrocytes in Blood by Automated coun High 3.8-11.6 [facility] Lipoprotein (a)on 02-29-2024 Lipoprotein a [Mass/Vol] 274.8 mg/dL High <75.0 [facility] Comment on above: Result Comment: Resu lts confirmed on dilution. Note: Values greater than or equal to 75.0 nmol/L may indicate an independent risk factor for CHD, but must be evaluated with caution when applied to non- populations due to the influence of genetic factors on Lp(a) across ethnicities. Performed at: - [facility] [id number] Mess Attendant: Josesito Pang PhD, Phone: [phone] PERFORMED BY: [place] [address] PATHOLOGIST COOL ROOFING INSTALLER VIDAL MORIN M.D. Performed By: #### B MP, CBC #### [address] Lymphocytes Auto (Bld) [#/Vo l]Ordered By: Madison Munson on 02-29-2024 Lymphocytes (Bld) [#/Vol] Lymphocytes [#/volume] in Blood by Automated count 1.00-4.8 [facility] Lymphocytes/100 WBC Auto (Bl d)Ordered By: Madison Munson on 02-29-2024 Lymphocytes/100 WBC (Bld) Lymphocytes/100 leukocytes in Blood by Automated count . [facility] MCH Auto (RBC) [Entitic mass ]Ordered By: Madison Munson on 02-29-2024 MCH (RBC) [Entitic mass] MCH [Entitic ma ss] by Automated count 24.7-34.3 [facility] MCHC Auto (RBC) [Mass/Vol]Or dered By: Madison Munson on 02-29-2024 MCHC (RBC) [Mass/Vol] MCHC [Mass/volume] by Automated count 32.0-35.0 [facility] MCV Auto (RBC) [Entitic vol] Ordered By: Madison Munson on 02-29-2024 MCV (RBC) [Entitic vol] MCV [Entitic vol ume] by Automated count 80-100 [facility] MISC LABon 02-29-2024 [facility] Normal [facility] Comment on above: Order Comment: wait to draw, jak will let us know once she finds out needs 2 gold tops [facility] Test Name: [facility] test no [id number] Apolipoprotein Assessment Result Comment: See report. Scanned copy available in EMR. PERFORMED BY: [place] [address] PATHOLOGIST CO[employer] ROOFING INSTALLER VIDAL MORIN M.D. Performed By: #### B MP, CBC #### [address] Monocytes Auto (Bld) [#/Vol] Ordered By: Madison Munson on 02-29-2024 Monocytes (Bld) [#/Vol] Automated blood monocyte count High 0.0-0.8 [facility] Monocytes/100 WBC Auto (Bld) Ordered By: Madison Munson on 02-29-2024 Monocytes/100 WBC (Bld) Automated monocyte % . [facility] Neutrophils Auto (Bld) [#/Vo l]Ordered By: Madison Munson on 02-29-2024 Neutrophils (Bld) [#/Vol] Neutrophils [#/volume] in Blood by Automated count High 1.8-7.7 [facility] Neutrophils/100 WBC Auto (Bl d)Ordered By: Madison Munson on 02-29-2024 Neutrophils/100 WBC (Bld) Automated neutrophil % . [facility] No Panel InformationOrdered By: Madison Munson on 02-29-2024 Estimated GFR (CKD-EPI) > 60.0 mL/Min [facility] Pharmacy Creatinine Clearance (Chem 108.42 [facility] Nucleated erythrocytes [Pres ence] in Blood by Automated countOrdered By: Madison Munson on 02-29-2024 Nucleated RBC Auto Ql (Bld) Nucleated erythrocytes [Presence] in Blood by Automated count 0-0.5 [facility] Platelet mean volume Auto (B ld) [Entitic vol]Ordered By: Madison Munson on 02-29-2024 Platelet mean volume (Bld) [Entitic vol] Platelet mean volume [Entitic volume] in Blood by Automated count 6.3-10.7 [facility] Platelets Auto (Bld) [#/Vol] Ordered By: Madison Munson on 02-29-2024 Platelets (Bld) [#/Vol] Platelets [#/vol ume] in Blood by Automated count 150-450 [facility] Potassium [Moles/volume] in Serum or PlasmaOrdered By: Madison Munson on 02-29-2024 Potassium [Moles/Vol] Potassium [Moles/volume] in Serum or Plasma 3.5-5.1 [facility] RBC Auto (Bld) [#/Vol]Ordere d By: Madison Munson on 02-29-2024 RBC (Bld) [#/Vol] Erythrocytes [#/volume] in Blood by Automated count 3.60-5.00 [facility] Serum or plasma anion gap de terminationOrdered By: Madison Munson on 02-29-2024 Anion gap [Moles/Vol] Serum or plasma an ion gap determination 6.0-15.0 [facility] Serum or plasma lipoprotein a measurement (moles/volume)Ordered By: Javier Leon on 02-29-2024 Lipoprotein a [Moles/Vol] Serum or plasma lipoprotein a measurement (moles/volume) High <75.0 [facility] Comment on above: Results confirmed on dilution.Note: Values greater than or equal to 75.0 nmol/L may indicate an independent risk factor for CHD, but must be evaluated with caution when applied to non- populations due to the influence of genetic factors on Lp(a) across ethnicities.Performed at: - [facility] [id number] Director: Josesito Pang PhD, Phone: [phone] Sodium [Moles/volume] in Ser um or PlasmaOrdered By: Madison Munson on 02-29-2024 Sodium [Moles/Vol] Sodium [Moles/volume ] in Serum or Plasma 136-145 [facility] Urea nitrogen [Mass/volume] in Serum or PlasmaOrdered By: Madison Munson on 02-29-2024 Urea nitrogen [Mass/Vol] Urea nitrogen [Mass/volume] in Serum or Plasma 09-09 [facility] WBC Auto (Bld) [#/Vol]Ordere d By: Madison Munson on 02-29-2024 WBC (Bld) [#/Vol] Leukocytes [#/volume ] in Blood by Automated count High 3.8-11.6 [facility] Anti-Xa UF Heparinon 025 Anti-Xa UF Heparin 0.30 [IU]/mL Normal 0.30-0.70 [facility] Comment on above: Result Comment: Use the aPTT protocol when triglycerides are > 800 mg/dL, total bilirubin is > 20 mg/dL and/or patient has received a DOAC, Fondaparinux or LMWH within 72 hours AND baseline anti-Xa level is > 0.7 units/mL PERFORMED BY: [place] [address] PATHOLOGIST [employer] ROOFING INSTALLER VIDAL MORIN M.D. Performed By: #### B MP, CBC #### [address] Basic Metabolic Panelon 02-16 Anion gap [Moles/Vol] 10.1 mmol/L Normal 6.0-15.0 [facility] Comment on above: Performed By: #### B MP, CBC #### [place] [address] [place] Calcium [Mass/Vol] 8.5 mg/dL Low 8.6-10.3 [facility] Comment on above: Performed By: #### B MP, CBC #### [place] [address] [place] Chloride [Moles/Vol] 108 mmol/L High 98-107 [facility] Comment on above: Performed By: #### B MP, CBC #### [place] [address] [place] CO2 [Moles/Vol] 25.4 mmol/L Normal 21.0-31.0 [facility] Comment on above: Performed By: #### B MP, CBC #### [address] Creatinine [Mass/Vol] 0.54 mg/dL Low 0.60-1.20 [facility] Comment on above: Performed By: #### B MP, CBC #### [place] [address] [place] Creatinine Clr Calc Pharmacy 98.60 Normal [facility] Comment on above: Result Comment: PERF ORMED BY: [place] [address] PATHOLOGIST CO[employer] ROOFING INSTALLER VIDAL MORIN M.D. Performed By: #### B MP, CBC #### [place] [address] [place] GFR/1.73 sq M.predicted MDRD (S/P/Bld) [Vol rate/Area] mL/min/{1.73_m2} Normal [facility] Comment on above: Performed By: #### B MP, CBC #### [address] Glucose [Mass/Vol] 95 mg/dL Normal 70-100 [facility] Comment on above: Result Comment: [place] Glucose Reference Range is dependent on time and content of last meal. Glucose of more than 200 mg/dL in a nonstressed, ambulatory subject supports the diagnosis of Diabetes Mellitus. ADA recommended reference range Performed By: #### B MP, CBC #### [place] [address] [place] Potassium [Moles/Vol] 4.5 mmol/L Normal 3.5-5.1 [facility] Comment on above: Performed By: #### B MP, CBC #### [place] [address] [place] Sodium [Moles/Vol] 139 mmol/L Normal 136-145 [facility] Comment on above: Performed By: #### B MP, CBC #### [place] [address] [place] Urea nitrogen [Mass/Vol] 17 mg/dL Normal 7-25 [facility] Comment on above: Performed By: #### B MP, CBC #### [address] Complete Blood Count Auto Di ffon 02-28-2024 Basophils (Bld) [#/Vol] 0.1 10*3/uL Normal 0.0-0.2 [facility] Comment on above: Result Comment: PERF ORMED BY: [place] [address] PATHOLOGIST CO[employer] ROOFING INSTALLER VIDAL MORIN M.D. Performed By: #### B MP, CBC #### [address] Basophils/100 WBC (Bld) 0.5 % Normal . T jacqui [facility] Comment on above: Performed By: #### B MP, CBC #### [address] Eosinophils (Bld) [#/Vol] 0.1 10*3/uL Normal 0.0-0.45 [facility] Comment on above: Performed By: #### B MP, CBC #### [address] Eosinophils/100 WBC (Bld) 0.8 % Normal . [facility] Comment on above: Performed By: #### B MP, CBC #### [address] Erythrocyte distribution width (RBC) [Ratio] 13.2 % Normal 11.9-15.3 [facility] Comment on above: Performed By: #### B MP, CBC #### [address] Hematocrit (Bld) [Volume fraction] 36.0 % Normal 34.0-46.4 [facility] Comment on above: Performed By: #### B MP, CBC #### [address] Hemoglobin (Bld) [Mass/Vol] 12.1 g/dL Normal 11.8-15.4 [facility] Comment on above: Performed By: #### B MP, CBC #### [facility] [address] [place] [address] [place] Lymphocytes (Bld) [#/Vol] 3.8 10*3/uL Normal 1.00-4.8 [facility] Comment on above: Performed By: #### B MP, CBC #### [facility] [address] [place] [id number] [place] Lymphocytes/100 WBC (Bld) 23.0 % Normal . [facility] Comment on above: Performed By: #### B MP, CBC #### [address] MCH (RBC) [Entitic mass] 31.7 pg Normal 24.7-34.3 [facility] Comment on above: Performed By: #### B MP, CBC #### [address] MCV (RBC) [Entitic vol] 94.3 fL Normal 80-100 [facility] Comment on above: Performed By: #### B MP, CBC #### [address] Mean Corpuscular HGB Conc 33.6 g/dL Normal 32.0-35.0 [facility] Comment on above: Performed By: #### B MP, CBC #### [place] [address] [place] Monocytes (Bld) [#/Vol] 1.3 10*3/uL High 0.0-0.8 [facility] Comment on above: Performed By: #### B MP, CBC #### [place] [address] [place] Monocytes/100 WBC (Bld) 7.9 % Normal . [facility] Comment on above: Performed By: #### B MP, CBC #### [place] [address] [place] Neutrophils (Bld) [#/Vol] 11.1 10*3/uL High 1.8-7.7 [facility] Comment on above: Performed By: #### B MP, CBC #### [address] Neutrophils/100 WBC (Bld) 67.8 % Normal . [facility] Comment on above: Performed By: #### B MP, CBC #### [address] NRBC% 0.0 /100{WBC} Normal 0-0.5 [facility] Comment on above: Performed By: #### B MP, CBC #### [address] Platelet mean volume (Bld) [Entitic vol] 8.1 fL Normal 6.3-10.7 [facility] Comment on above: Performed By: #### B MP, CBC #### [address] Platelets (Bld) [#/Vol] 282 10*3/uL Normal 150-450 [facility] Comment on above: Performed By: #### B MP, CBC #### [address] RBC (Bld) [#/Vol] 3.82 10*6/uL Normal 3.60-5.00 [facility] Comment on above: Performed By: #### B MP, CBC #### [address] WBC (Bld) [#/Vol] 16.4 10*3/uL High 3.8-11.6 [facility] Comment on above: Performed By: #### B MP, CBC #### [address] Heparin anti-Xa unfractionat edOrdered By: Madison Munson on 02-28-2024 Heparin unfractionated Chromogenic method Qn (PPP) Heparin anti-Xa unfractionated 0.30-0.70 [facility] Comment on above: Use the aPTT protoco l when triglycerides are > 800 mg/dL,total bilirubin is > 20 mg/dL and/or patient has received aDOAC, Fondaparinux or LMWH within 72 hours AND baselineanti-Xa level is > 0.7 units/mL Troponin I High Sensitivityo n 02-28-2024 Troponin I High Sensitivity 18002.0 pg/mL Off scale high 0.0-15.0 [facility] Comment on above: Result Comment: Crit ical Result : Called to and read back by: LORENZO LAW at: 02/28/2024 05:32:12 by:[id number] PERFORMED BY: [place] [address] PATHOLOGIST CO[employer] ROOFING INSTALLER VIDAL MORIN M.D. Performed By: #### B MP, CBC #### [address] Troponin I.cardiac [Mass/vol ume] in Serum or Plasma by Detection limit <= 0.01 ng/Ordered By: Madison Munson on 02-28-2024 Troponin I.cardiac DL <= 0.01 ng/mL [Mass/Vol] Troponin I.cardiac [Mass/volume] in Serum or Plasma by Detection limit <= 0.01 ng/ Critically high 0.0-15.0 [facility] Comment on above: Critical Result : Ca lled to and read back by: LORENZO LAW at: 02/28/2024 05:32:12 by:[id number] Anisocytosis LM Ql (Bld)Orde red By: Madison Munson on 02-27-2024 Anisocytosis Ql (Bld) Anisocytosis [Presence] in Blood by Light microscopy [facility] Anti-Xa UF Heparinon 025 Anti-Xa UF Heparin 0.30 [IU]/mL Normal 0.30-0.70 [facility] Comment on above: Result Comment: Use the aPTT protocol when triglycerides are > 800 mg/dL, total bilirubin is > 20 mg/dL and/or patient has received a DOAC, Fondaparinux or LMWH within 72 hours AND baseline anti-Xa level is > 0.7 units/mL PERFORMED BY: [address] [address] PATHOLOGIST CO[employer] ROOFING INSTALLER IVDAL MORIN M.D. Performed By: #### B MP, CBC #### [address] Anti-Xa UF Heparin 0.33 [IU]/mL Normal 0.30-0.70 [facility] Comment on above: Result Comment: Use the aPTT protocol when triglycerides are > 800 mg/dL, total bilirubin is > 20 mg/dL and/or patient has received a DOAC, Fondaparinux or LMWH within 72 hours AND baseline anti-Xa level is > 0.7 units/mL PERFORMED BY: [place] [address] PATHOLOGIST CO[employer] ROOFING INSTALLER VIDAL MORIN M.D. Performed By: #### U FHEP #### [address] Anti-Xa UF Heparin 0.29 [IU]/mL Low 0.30-0.70 [facility] Comment on above: Result Comment: Use the aPTT protocol when triglycerides are > 800 mg/dL, total bilirubin is > 20 mg/dL and/or patient has received a DOAC, Fondaparinux or LMWH within 72 hours AND baseline anti-Xa level is > 0.7 units/mL PERFORMED BY: [place] [address] PATHOLOGIST CO[employer] ROOFING INSTALLER VIDAL MORIN M.D. Performed By: #### B OMAR, CBC #### [address] Appearance of UrineOrdered B y: Madison Celispolloramirez on 02-27-2024 Appearance (U) Urine appearance Clear [facility] B-Type Natriuretic Peptideon 02-27-2024 Natriuretic peptide B (Bld) [Mass/Vol] 378.0 pg/mL High 5-100 [facility] Comment on above: Result Comment: PERF ORMED BY: [address] [address] PATHOLOGIST CO[employer] ROOFING INSTALLER VIDAL MORIN M.D. Performed By: #### B MP, CBC #### [place] [address] [place] Band form neutrophils/100 WB C Manual cnt (Bld)Ordered By: Madison Munson on 02-27-2024 Band form neutrophils/100 WBC (Bld) Peripheral white blood cell differential % bands, microscopic exam High 0-5 [facility] Basic Metabolic Panelon 02-16 Anion gap [Moles/Vol] 12.5 mmol/L Normal 6.0-15.0 [facility] Comment on above: Performed By: #### M G #### [address] Calcium [Mass/Vol] 8.7 mg/dL Normal 8.6-10.3 [facility] Comment on above: Performed By: #### M G #### [address] Chloride [Moles/Vol] 107 mmol/L Normal 98-107 [facility] Comment on above: Performed By: #### M G #### [address] CO2 [Moles/Vol] 25.0 mmol/L Normal 21.0-31.0 [facility] Comment on above: Performed By: #### M G #### [place] [address] [place] Creatinine [Mass/Vol] 0.50 mg/dL Low 0.60-1.20 [facility] Comment on above: Performed By: #### M G #### [place] [address] [place] Creatinine Clr Calc Pharmacy 106.49 Normal [facility] Comment on above: Performed By: #### M G #### [place] [address] [place] GFR/1.73 sq M.predicted MDRD (S/P/Bld) [Vol rate/Area] mL/min/{1.73_m2} Normal [facility] Comment on above: Performed By: #### M G #### [place] [address] [place] Glucose [Mass/Vol] 133 mg/dL High 70-100 [facility] Comment on above: Result Comment: [place] Glucose Reference Range is dependent on time and content of last meal. Glucose of more than 200 mg/dL in a nonstressed, ambulatory subject supports the diagnosis of Diabetes Mellitus. ADA recommended reference range Performed By: #### M G #### [facility] [address] Potassium [Moles/Vol] 4.5 mmol/L Normal 3.5-5.1 [facility] Comment on above: Performed By: #### M G #### [facility] [address] Sodium [Moles/Vol] 140 mmol/L Normal 136-145 [facility] Comment on above: Performed By: #### M G #### [address] Urea nitrogen [Mass/Vol] 13 mg/dL Normal 7-25 [facility] Comment on above: Performed By: #### M G #### [address] Bilirubin Test strip Ql (U)O rdered By: Madison Munson on 02-27-2024 Bilirubin Ql (U) Bilirubin.total [Presence] in Urine by Test strip Negative [facility] Cholesterol [Mass/volume] in Serum or PlasmaOrdered By: Madison Munson on 02-27-2024 Cholesterol [Mass/Vol] Cholesterol [Mass/volume] in Serum or Plasma 140-200 [facility] Comment on above: Chol less than 200 m g/dl low riskChol 201-239 mg/dl borderline riskChol 240 mg/dl and greater high risk Cholesterol in HDL [Mass/vol ume] in Serum or PlasmaOrdered By: Madison Munson on 02-27-2024 Cholesterol in HDL [Mass/Vol] Serum or plasma high density lipoprotein (HDL) cholesterol measurement 23-92 [facility] Comment on above: HDL CHOL ATP-III CLA SSIFICATION Cardiovascular RiskHDL > or equal to 60 mg/dL LOWHDL < 40 mg/dL HIGH Cholesterol in LDL Calc [Mas s/Vol]Ordered By: Madison Munson on 02-27-2024 Cholesterol in LDL [Mass/Vol] Cholesterol in LDL [Mass/volume] in Serum or Plasma by calculation 0-100 [facility] Comment on above: LDL ATP III CLASSIFI CATIONLDL less than 100 mg/dL OptimalLDL 100-129 mg/dL Near or above optimalLDL 130-159 mg/dL Borderline highLDL 160-189 mg/dL HighLDL greater than 189 mg/dL Very high Cholesterol in VLDL Calc [Ma ss/Vol]Ordered By: Madison Munson on 02-27-2024 Cholesterol in VLDL [Mass/Vol] Cholesterol in VLDL [Mass/volume] in Serum or Plasma by calculation [facility] Color Auto (U)Ordered By: Magdiel Munson on 02-27-2024 Color (U) Color of Urine by Auto Yellow [facility] Diff and CBCon 02-27-2024 Anisocytosis Ql (Bld) Slight Normal [facility] Comment on above: Performed By: #### M G #### [address] Band form neutrophils/100 WBC (Bld) 16 % High 0-5 [facility] Comment on above: Performed By: #### M G #### [address] Erythrocyte distribution width (RBC) [Ratio] 13.0 % Normal 11.9-15.3 [facility] Comment on above: Performed By: #### M G #### [address] Hematocrit (Bld) [Volume fraction] 37.6 % Normal 34.0-46.4 [facility] Comment on above: Performed By: #### M G #### [place] [address] [place] Hemoglobin (Bld) [Mass/Vol] 12.4 g/dL Normal 11.8-15.4 [facility] Comment on above: Performed By: #### M G #### [address] Large Platelets Slight Normal [facility] Comment on above: Result Comment: PERF ORMED BY: [place] [address] PATHOLOGIST CO[employer] ROOFING INSTALLER VIDAL MORIN M.D. Performed By: #### M G #### [address] Lymphocytes/100 WBC (Bld) 4 % Low 18-42 [facility] Comment on above: Performed By: #### M G #### [address] MCH (RBC) [Entitic mass] 31.1 pg Normal 24.7-34.3 [facility] Comment on above: Performed By: #### M G #### [address] MCV (RBC) [Entitic vol] 94.5 fL Normal 80-100 [facility] Comment on above: Performed By: #### M G #### [address] Mean Corpuscular HGB Conc 32.9 g/dL Normal 32.0-35.0 [facility] Comment on above: Performed By: #### M G #### [address] Microcytosis Slight Normal [facility] Comment on above: Performed By: #### M G #### [address] Monocytes/100 WBC (Bld) 12 % High 2-11 [facility] Comment on above: Performed By: #### M G #### [address] Platelet Estimate Normal Normal Normal [facility] Comment on above: Performed By: #### M G #### [address] Platelet mean volume (Bld) [Entitic vol] 8.2 fL Normal 6.3-10.7 [facility] Comment on above: Performed By: #### M G #### [address] Platelet Morphology Normal Normal Normal [facility] Comment on above: Performed By: #### M G #### [place] [address] [place] Platelets (Bld) [#/Vol] 282 10*3/uL Normal 150-450 [facility] Comment on above: Performed By: #### M G #### [address] Poikilocytosis Slight Normal [facility] Comment on above: Performed By: #### M G #### [address] RBC (Bld) [#/Vol] 3.97 10*6/uL Normal 3.60-5.00 [facility] Comment on above: Performed By: #### M G #### [address] Segmented neutrophils/100 WBC (Bld) 68 % Normal 50-70 [facility] Comment on above: Performed By: #### M G #### [address] Stomatocytes Slight Normal [facility] Comment on above: Performed By: #### M G #### [address] WBC (Bld) [#/Vol] 22.2 10*3/uL High 3.8-11.6 [facility] Comment on above: Performed By: #### M G #### [address] ECG 12 lead ECGon 02-27-2024 ECG 12 lead ECG [facility] [place] [address] [place] [address] Electrocardiograph Report Signed Patient: Angela Radford MR#: [id number] : 1965 Acct:[id number] Age/Sex: 58 / F ADM Date: 02/26/24 Loc: Room: [address] [place] [address] Type: ADM IN Attending Dr: Madison Munson MD Ordering Provider: Madison Munson MD Date of Service: 02/27/2401/10/2151 ECG/ECG 12 lead ECG: Chest Discomfort Copies to: Test Reason : Blood Pressure : */* mmHG Vent. Rate : 60 BPM Atrial Rate : 60 BPM P-R Int : 136 ms QRS Dur : 74 ms QT Int : 400 ms P-R-T Axes : 36 -7 -40 degrees QTcB Int : 400 ms Normal sinus rhythm Inferior infarct (cited on or before 27-Feb-2024) Anterior infarct (cited on or before 27-Feb-2024) T wave abnormality, consider lateral ischemia Abnormal ECG When compared with ECG of 27-Feb-2024 16:04, (Unconfirmed) premature ventricular complexes are no longer present Vent. rate has decreased by 86 bpm Confirmed by MONIQUE TADEO MD ([id number]) on 02/28/2024 9:35:39 AM Referred By: Electronically Signed By: MONIQUE TADEO MD Transcribed By: MUS Signed By Monique Tadeo MD 0 02/28/24 0935 Normal [facility] ECG 12 lead ECG [facility] [place] [address] Electrocardiograph Report Signed Patient: Angela Radford MR#: [id number] : 1965 Acct:[id number] Age/Sex: 58 / F ADM Date: 02/26/24 Loc: Room: [address] [place] [address] Type: ADM IN Attending Dr: Madison Munson MD Ordering Provider: Madison Munson MD Date of Service: 02/27/2401/10/1559 ECG/ECG 12 lead ECG: chest pain Copies to: Test Reason : Blood Pressure : */* mmHG Vent. Rate : 146 BPM Atrial Rate : 75 BPM P-R Int : 140 ms QRS Dur : 60 ms QT Int : 374 ms P-R-T Axes : 55 -4 -53 degrees QTcB Int : 582 ms Sinus rhythm Lateral infarct Inferior infarct , age undetermined T wave abnormality, consider anterior ischemia Abnormal ECG When compared with ECG of 27-Feb-2024 07:58, Significant changes have occurred Confirmed by MONIQUE TADEO MD ([id number]) on 02/28/2024 9:35:28 AM Referred By: Electronically Signed By: MONIQUE TADEO MD Transcribed By: MUS Signed By Monique Tadeo MD 0 02/28/24 0935 Normal [facility] ECG 12 lead ECG [facility] Main [place] [id number] Electrocardiograph Report Signed Patient: Angela Radford MR#: [id number] : 1965 Acct:[id number] Age/Sex: 58 / F ADM Date: 02/26/24 Loc: Room: [address] [place] [address] Type: ADM IN Attending Dr: Madison Munson MD Ordering Provider: Madison Munson MD Date of Service: 02/27/2401/10/500 ECG/ECG 12 lead ECG: abn Copies to: Test Reason : Blood Pressure : */* mmHG Vent. Rate : 55 BPM Atrial Rate : 55 BPM P-R Int : 144 ms QRS Dur : 84 ms QT Int : 438 ms P-R-T Axes : 21 67 104 degrees QTcB Int : 419 ms Sinus bradycardia Poor anterior R wave progression T wave abnormality, consider lateral ischemia Abnormal ECG No previous ECGs available Confirmed by MONIQUE TADEO MD ([id number]) on 02/27/2024 9:02:39 AM Referred By: Electronically Signed By: MONIQUE TADEO MD Transcribed By: MUS Signed By Monique Tadeo MD 0 02/27/24 0902 Normal [facility] ECH echo transthoracicon [facility] echo transthoracic [facility] Main [place] [id number] Echocardiogram Signed Patient: Angela Radford MR#: [id number] : 1965 Acct:[id number] Age/Sex: 58 / F ADM Date: 02/26/24 Loc: Room: [address] [place] [address] Type: ADM IN Attending Dr: Madison Munson MD Ordering Provider: Madison Munson MD Date of Service: 02/26/2412/10/1545 ECH/ECH echo transthoracic: abn Copies to: MD Madison Nieto MD Weight: 149 lb Performed By: BRIA Chen BSA: 1.6 m2 BP: 98/54 mmHg HR: 68 Reason For Study: [id number] History: smoker Interpretation Summary A variety of Doppler measurements indicate normal left ventricular diastolic function. The left ventricular size and thickness are normal. The LV ejection fraction is 55 %. Mild to moderate degree of hypokinesis of the inferolateral wall There is mild mitral regurgitation. There is mild tricuspid regurgitation. There is no comparison study available. Procedure/Quality: A two-dimensional transthoracic echocardiogram with color flow and Doppler was performed. The study was technically good in quality. Left Ventricle: The left ventricular size and thickness are normal. The LV ejection fraction is 55 %. A variety of Doppler measurements indicate normal left ventricular diastolic function. Mild to moderate degree of hypokinesis of the inferolateral wall. Left Atrium: The left atrium appears normal in size. The atrial septum appears normal. Right Atrium: The right atrium appears normal in size. Right Ventricle: The right ventricular size, thickness and function are normal. Aortic Valve: The aortic valve is normal in structure and function. No aortic regurgitation is present. Mitral Valve: The mitral valve is normal in structure and function. There is mild mitral regurgitation. Tricuspid Valve: The tricuspid valve is normal in structure and function. There is mild tricuspid regurgitation. Pulmonic Valve: The pulmonic valve is normal in structure and function. Arteries: The aortic root is normal size. Pericardium/Pleura: No pericardial effusion seen. There is no pleural effusion. IVC/Hepatic Veins: The inferior vena cava is normal in size, with a normal collapsibility index. Measurements with Normals IVSd: 1.3 cm (0.7-1.1 cm)LVIDd: 4.8 cm (3.7-5.4 cm) LVPWd: 1.2 cm (0.7-1.1 cm)LVIDs: 3.2 cm (2.3-3.6 cm) LA dimension: 4.2 cm (2.3-4.0 cm)Ao root diam: 2.3 cm(2.0-3.6 cm) asc Aorta Diam: 2.7 cm(2.1-3.4cm) Doppler with Normals RVSP(TR): 31.6 mmHg (18-35mmHg) LV V1 max: 94.6 cm/sec (0.7-1.7m/s)MV E max ivana: 83.1 cm/sec(0.8-1.3m/s) MV A max ivana: 78.8 cm/sec(0.0-0.0m/s) MV E/A: 1.1 (<1.5) MMode/2D Measurements Calculations TAPSE: 2.3 cm FS: 33.3 % Ao root area: LVOT diam: 1.8 cm RV S Ivana: EDV(Teich): 4.2 cm2 LVOT area: 2.5 cm2 12.1 cm/sec 107.5 ml ESV(Teich): 41.0 ml EF(Teich): 61.9 % __ LVLd ap4: 7.0 cm SV(MOD-sp4): LAV(MOD-sp4): LA A2 area: 14.8 cm2 EDV(MOD-sp4): 45.3 ml 51.9 ml 70.0 ml LAV(MOD-sp2): LA A4 area: 18.5 cm2 LVLs ap4: 6.0 cm 39.0 ml LA length (vol): ESV(MOD-sp4): 5.2 cm 24.7 ml LA vol: 44.5 ml EF(MOD-sp4): 64.7 % LA vol index: 27.0 ml/m2 Doppler Measurements Calculations MV dec time: MV V2 max: E/E' lat: 10.8 MV dec slope: 0.21 sec 84.9 cm/sec E/E' med: 11.9 MV max P.0 cm/sec2 61.0 mmHg MV V2 mean: 47.7 cm/sec MV mean P.0 mmHg MV V2 VTI: 27.6 cm MVA(VTI): 2.1 cm2 __ Ao V2 max: LV V1 max PG: MR max ivana: TV max P.0 mmHg 123.0 cm/sec 3.6 mmHg 389.0 cm/sec Ao max P.1 mmHgLV V1 mean PG: MR max PG: Ao mean P.0 mmHg 61.8 mmHg 4.0 mmHg LV V1 mean: Ao V2 mean: 63.2 cm/sec 92.6 cm/sec LV V1 VTI: 23.2 cm Ao V2 VTI: 27.4 cm ISSA(I,D): 2.2 cm2 ISSA(V,D): 2.0 cm2 __ TR max ivana: 258.0 cm/sec TR max P.6 mmHg RAP systole: 5.0 mmHg Pediatric Measurements Calculations IVC diam: 2.1 cm Transcribed By: SCV Performed At: 02/27/24 0937 Signed By: Monique Tadeo MD 02/27/24 1459 Normal [facility] Erythrocyte morphology findi ng [Identifier] in BloodOrdered By: Madison Munson on 02-27-2024 RBC morphology finding Nom (Bld) RBC morphology [facility] Glucose [Mass/volume] in Uri ne by Test stripOrdered By: Madison Munson on 02-27-2024 Glucose Test strip (U) [Mass/Vol] Glucose [Mass/volume] in Urine by Test strip Normal [facility] Hemoglobin Test strip Ql (U) Ordered By: Madison Munson on 02-27-2024 Hemoglobin Ql (U) Hemoglobin [Presence ] in Urine by Test strip Negative [facility] Ketones Test strip Ql (U)Ord ered By: Madison Munson on 02-27-2024 Ketones Ql (U) Ketones [Presence] i n Urine by Test strip Negative [facility] Leukocyte esterase [Presence ] in Urine by Test stripOrdered By: Madison Munson on 02-27-2024 Leukocyte esterase Test strip Ql (U) Leukocyte esterase [Presence] in Urine by Test strip Negative [facility] Lipid Panelon 02-27-2024 Cholesterol [Mass/Vol] 194 mg/dL Normal 140-200 [facility] Comment on above: Result Comment: Chol less than 200 mg/dl low risk Chol 201-239 mg/dl borderline risk Chol 240 mg/dl and greater high risk Performed By: #### M G #### [facility] [address] Cholesterol in HDL [Mass/Vol] 48 mg/dL Normal 23-92 [facility] Comment on above: Result Comment: HDL CHOL ATP-III CLASSIFICATION Cardiovascular Risk HDL > or equal to 60 mg/dL LOW HDL < 40 mg/dL HIGH Performed By: #### M G #### [place] [address] [place] Cholesterol.total/Choles terol in HDL [Mass ratio] 4.0 {ratio} Normal <5.0 [facility] Comment on above: Result Comment: PERF ORMED BY: [place] [address] PATHOLOGIST [employer]OL ROOFING INSTALLER VIDAL MORIN M.D. Performed By: #### M G #### [address] LDL Cholesterol,Calculated 78 mg/dL Normal 0-100 [facility] Comment on above: Result Comment: LDL ATP III CLASSIFICATION LDL less than 100 mg/dL Optimal LDL 100-129 mg/dL Near or above optimal LDL 130-159 mg/dL Borderline high LDL 160-189 mg/dL High LDL greater than 189 mg/dL Very high Performed By: #### M G #### [place] [address] [place] Triglyceride w/Reflex 339 mg/dL High 0-149 [facility] Comment on above: Result Comment: TRIG ATP III CLASSIFICATION TRIG less than 150 mg/dL Normal TRIG 150-199 mg/dL Borderline high TRIG 200-500 mg/dL High TRIG greater than 500 mg/dL Very high Standard traceable to the Center for Disease Conrtrol and Prevention (CDC) test method. Performed By: #### M G #### [address] VLDL CHOLESTEROL 67 mg/dL Normal [facility] Comment on above: Performed By: #### M G #### [facility] [address] Lymphocytes/100 WBC Manual c nt (Bld)Ordered By: Madison Munson on 02-27-2024 Lymphocytes/100 WBC (Bld) Lymphocytes/100 leukocytes in Blood by Manual count Low 18-42 [facility] Microcytes LM Ql (Bld)Ordere d By: Madison Munson on 02-27-2024 Microcytes Ql (Bld) Microcytes [Presence ] in Blood by Light microscopy [facility] Monocytes/100 WBC Manual cnt (Bld)Ordered By: Madison Munson on 02-27-2024 Monocytes/100 WBC (Bld) Monocytes/100 leukocytes in Blood by Manual count High 2-11 [facility] Natriuretic peptide B [Mass/ Vol]Ordered By: Madison Munson on 02-27-2024 Natriuretic peptide B (Bld) [Mass/Vol] BNP ser/plas High 5-100 [facility] Nitrite Test strip Ql (U)Ord ered By: Madison Munson on 02-27-2024 Nitrite Ql (U) Nitrite [Presence] i n Urine by Test strip Negative [facility] Platelet adequacy [Presence] in Blood by Light microscopyOrdered By: Madison Munson on 02-27-2024 Platelets LM Ql (Bld) Platelet adequacy [Presence] in Blood by Light microscopy Normal [facility] Platelet morphology finding [Identifier] in BloodOrdered By: Madison Munson on 02-27-2024 Platelet morphology finding Nom (Bld) Platelet morphology finding [Identifier] in Blood Normal [facility] Platelets Large [Presence] i n Blood by Light microscopyOrdered By: Madison Munson on 02-27-2024 Platelets Large LM Ql (Bld) Platelets Large [Presence] in Blood by Light microscopy [facility] Poikilocytosis [Presence] in Blood by Light microscopyOrdered By: Madison Munson on 02-27-2024 Poikilocytosis LM Ql (Bld) Poikilocytosis [Presence] in Blood by Light microscopy [facility] Protein Test strip (U) [Mass /Vol]Ordered By: Madison Munson on 02-27-2024 Protein (U) [Mass/Vol] Protein [Mass/vol ume] in Urine by Test strip Negative [facility] Segmented neutrophils/100 WB C Manual cnt (Bld)Ordered By: Madison Munson on 02-27-2024 Segmented neutrophils/100 WBC (Bld) Manual blood segmented neutrophils/100 leukocytes 50-70 [facility] Serum or plasma total choles terol/high density lipoprotein (HDL) cholesterol mass ratOrdered By: Madison Munson on 02-27-2024 Cholesterol.total/Choles terol in HDL [Mass ratio] Serum or plasma total cholesterol/high density lipoprotein (HDL) cholesterol mass rat <5.0 [facility] Specific gravity Test strip (U) [Rel density]Ordered By: Madison Munson on 02-27-2024 Specific gravity (U) [Rel density] Specific gravity of Urine by Test strip 1.001-1.030 [facility] Stomatocytes [Presence] in B lood by Light microscopyOrdered By: Madison Munson on 02-27-2024 Stomatocytes LM Ql (Bld) Red blood cell stomatocyte detection [facility] Triglyceride [Mass/volume] i n Serum or PlasmaOrdered By: Madison Munson on 02-27-2024 Triglyceride [Mass/Vol] Triglyceride [Mass/volume] in Serum or Plasma High 0-149 [facility] Comment on above: TRIG ATP III CLASSIF ICATIONTRIG less than 150 mg/dL NormalTRIG 150-199 mg/dL Borderline highTRIG 200-500 mg/dL High TRIG greater than 500 mg/dL Very highStandard traceable to the Center for Disease Conrtrol and Prevention (CDC) test method. Troponin I High Sensitivityo n 02-27-2024 Troponin I High Sensitivity 7715.4 pg/mL Off scale high 0.0-15.0 [facility] Comment on above: Result Comment: Crit ical Result : Called to and read back by: JOSH HAGEN at: 02/27/2024 17:34:07 by:[id number] PERFORMED BY: [place] [address] [place] [address] PATHOLOGIST [employer]OL ROOFING INSTALLER VIDAL MORIN M.D. Performed By: #### H S TROP #### [place] [address] [place] Urinalysison 02-27-2024 Appearance (U) Clear Normal Clear [facility] Comment on above: Order Comment: Name Collection Type:: Clean-Voided Midstream Performed By: #### U A #### [place] [address] [place] Bilirubin,Urine Negative Normal Negative [facility] Comment on above: Order Comment: Name Collection Type:: Clean-Voided Midstream Performed By: #### U A #### [place] [address] [place] Color (U) Light-Yellow Normal Yellow [facility] Comment on above: Order Comment: Name Collection Type:: Clean-Voided Midstream Performed By: #### U A #### [place] [address] [place] Glucose Ql (U) Normal Normal Normal [facility] Comment on above: Order Comment: Name Collection Type:: Clean-Voided Midstream Performed By: #### U A #### [place] [address] [place] Ketones Ql (U) Negative Normal Negative [facility] Comment on above: Order Comment: Name Collection Type:: Clean-Voided Midstream Performed By: #### U A #### [place] [address] [place] Leukocyte esterase Test strip Ql (U) Negative Normal Negative [facility] Comment on above: Order Comment: Name Collection Type:: Clean-Voided Midstream Performed By: #### U A #### [place] [address] [place] Nitrite,Urine Negative Normal Negative [facility] Comment on above: Order Comment: Name Collection Type:: Clean-Voided Midstream Performed By: #### U A #### [place] [address] [place] Occult Blood,Urine Negative Normal Negative [facility] Comment on above: Order Comment: Name Collection Type:: Clean-Voided Midstream Result Comment: PERF ORMED BY: [place] [address] PATHOLOGIST COOL ROOFING INSTALLER VIDAL MORIN M.D. Performed By: #### U A #### [address] pH (U) 6.0 [pH] Normal 5.0-9.0 [facility] Comment on above: Order Comment: Name Collection Type:: Clean-Voided Midstream Performed By: #### U A #### [address] Protein,Urine Negative Normal Negative [facility] Comment on above: Order Comment: Name Collection Type:: Clean-Voided Midstream Performed By: #### U A #### [address] Specificy [place],Urine 1.027 Normal 1.001-1.030 [facility] Comment on above: Order Comment: Name Collection Type:: Clean-Voided Midstream Performed By: #### U A #### [place] [address] [place] Urobilinogen,Urine Normal Normal Normal [facility] Comment on above: Order Comment: Name Collection Type:: Clean-Voided Midstream Performed By: #### U A #### [place] [address] [place] Urobilinogen Test strip (U) [Mass/Vol]Ordered By: Madison Munson on 02-27-2024 Urobilinogen (U) [Mass/Vol] Urobilinogen [Mass/volume] in Urine by Test strip Normal [facility] X-ray reportOrdered By: Mustapha Medley on 02-27-2024 Study report [facility] Main [place] [address] [place] [address] XRay Report Signed Patient: Angela Radford MR#: [id number] : 1965 Acct:[id number] Age/Sex: 58 / F ADM Date: 5 Loc: Room: [address] [place] [address] Type: ADM IN Attending Dr: Madison Munson MD Copies to: Madison Munson MD Ordering Provider: Madison Munson MD Date of Service: 02/27/24 XR/XR chest 1V portable: chest tightness, trouble breathing SINGLE VIEW CHEST CLINICAL HISTORY: Chest tightness trouble breathing COMPARISON: Chest 02/26/2024 FINDINGS: Heart normal in size. No consolidation pneumothorax pleural effusion or free air. XR/XR chest 1V portable IMPRESSION: NO ACUTE FINDINGS Impression dictated by: Nadine Tam Jr..O.02/27/2024 4:28 PM Dictation Location: RADIO-PC-18 Transcribed By: LAURENCE 02/27/24 1628 Dictated By: Vasyl Medley Jr DO 02/27/24 1627 Signed By: 02/27/24 1628 [facility] XR chest 1V portableon 02-26 XR chest 1V portable [facility] [place] [address] XRay Report Signed Patient: Angela Radford MR#: [id number] : 1965 Acct:[id number] Age/Sex: 58 / F ADM Date: 02/26/24 Loc: Room: [address] [place] [address] Type: ADM IN Attending Dr: Madison Munson MD Copies to: Madison Munson MD Ordering Provider: Madison Munson MD Date of Service: 02/27/24 XR/XR chest 1V portable: chest tightness, trouble breathing SINGLE VIEW CHEST CLINICAL HISTORY: Chest tightness trouble breathing COMPARISON: Chest 02/26/2024 FINDINGS: Heart normal in size. No consolidation pneumothorax pleural effusion or free air. XR/XR chest 1V portable IMPRESSION: NO ACUTE FINDINGS Impression dictated by: Vasyl Medley Jr. D.O.02/27/2024 4:28 PM Dictation Location: RADIO-PC-18 Transcribed By: LAURENCE 02/27/24 1628 Dictated By: Vasyl Medley Jr DO 02/27/24 1627 Signed By: 02/27/24 1628 Normal [facility] pH Test strip (U)Ordered By: Madison Munson on 02-27-2024 pH (U) pH of Urine by Test strip 5.0-9.0 [facility] Anti-Xa UF Heparinon 025 Anti-Xa UF Heparin 0.21 [IU]/mL Low 0.30-0.70 [facility] Comment on above: Order Comment: Comme nt add Result Comment: Use the aPTT protocol when triglycerides are > 800 mg/dL, total bilirubin is > 20 mg/dL and/or patient has received a DOAC, Fondaparinux or LMWH within 72 hours AND baseline anti-Xa level is > 0.7 units/mL PERFORMED BY: [place] [address] PATHOLOGIST COOL ROOFING INSTALLER VIDAL MORIN M.D. Performed By: #### M G #### [address] Anti-Xa UF Heparin 0.08 [IU]/mL Low 0.30-0.70 [facility] Comment on above: Result Comment: Use the aPTT protocol when triglycerides are > 800 mg/dL, total bilirubin is > 20 mg/dL and/or patient has received a DOAC, Fondaparinux or LMWH within 72 hours AND baseline anti-Xa level is > 0.7 units/mL PERFORMED BY: [place] [address] PATHOLOGIST COOL ROOFING INSTALLER VIDAL MORIN M.D. Performed By: #### B MP, CBC #### [facility] [address] [place] [address] [place] Basophils/100 WBC Manual cnt (Bld)on 02-26-2024 Basophils/100 WBC (Bld) Basophils/100 leukocytes in Blood by Manual count Low 0.2-2.0 [facility] Eosinophils/100 WBC Manual c nt (Bld)on 02-26-2024 Eosinophils/100 WBC (Bld) Eosinophils/100 leukocytes in Blood by Manual count Low 0.9-7.0 [facility] Erythrocyte distribution wid th Auto (RBC) [Ratio]on 02-26-2024 Erythrocyte distribution width (RBC) [Ratio] Erythrocyte distribution width [Ratio] by Automated count 11.0-15.0 [facility] Estimated glomerular filtrat ion rate (GFR) non- Americanon 02-26-2024 GFR/1.73 sq M.predicted among non-blacks MDRD (S/P/Bld) [Vol rate/Area] Estimated glomerular filtration rate (GFR) non- >=60 mL/min/1.73m 2 [facility] Globulin Calc (S) [Mass/Vol] on 02-26-2024 Globulin (S) [Mass/Vol] Serum globulin measurement by calculation (mass/volume) [facility] Hematocrit Auto (Bld) [Volum e fraction]on 02-26-2024 Hematocrit (Bld) [Volume fraction] Hematocrit [Volume Fraction] of Blood by Automated count 36.0-48.0 [facility] Hemoglobin [Mass/volume] in Bloodon 02-26-2024 Hemoglobin (Bld) [Mass/Vol] Hemoglobin [Mass/volume] in Blood 12.0-16.0 [facility] Laboratory - Chemistry and C hemistry - challengeon 02-26-2024 Albumin [Mass/Vol] 3.6 g/dL 3.4-5.0 [facility] ALP [Catalytic activity/Vol] 60 U/L 46-116 [facility] ALT [Catalytic activity/Vol] 45 U/L 14-59 [facility] AST [Catalytic activity/Vol] 253 U/L High 15-37 [facility] Bilirubin [Mass/Vol] 0.6 mg/dL 0.2-1.0 [facility] Calcium [Mass/Vol] 8.4 mg/dL Low 8.5-10.1 [facility] Chloride [Moles/Vol] 106 mmol/L 98-107 [facility] CO2 [Moles/Vol] 24.9 mmol/L 21.0-32.0 [facility] Creatinine [Mass/Vol] 0.56 mg/dL 0.55-1.02 [facility] GFR/1.73 sq M.predicted MDRD (S/P/Bld) [Vol rate/Area] mL/min/{1.73_m2} >=60 mL/min/1.73m 2 [facility] Glucose [Mass/Vol] 101 mg/dL 74-106 [facility] Potassium [Moles/Vol] 3.8 mmol/L 3.5-5.1 [facility] Protein [Mass/Vol] 6.6 g/dL 6.4-8.2 [facility] Sodium [Moles/Vol] 142 mmol/L 136-145 [facility] Urea nitrogen [Mass/Vol] 10.0 mg/dL 7.0-18.0 [facility] Urea nitrogen/Creatinine [Mass ratio] 17.9 mg/mg [facility] Laboratory - Hematology and Cell countson 02-26-2024 Lymphocytes/100 WBC (Bld) 16.0 % Low 20.5-60.0 [facility] Monocytes/100 WBC (Bld) 14.0 % High 1.7-12.0 [facility] Laboratory - Microbiology an d Antimicrobial susceptibilityon 02-26-2024 SARS-CoV-2 (COVID-19) RNA MAYELA+probe Ql (Unsp spec) Negative NEGATIVE [facility] Comment on above: This test has not be en FDA cleared or approved, but has beenauthorized by the FDA under an Emergency Use Authorization(EUA) for use by authorized laboratories certified underIA that meet the requirements to perform moderate or highcomplexity testing. This test has been authorized only forthe detection of proteins from SARS-CoV-2, not for any otherviruses or pathogens. The emergency use of this test isauthorized for the duration of the declaration thatcircumstances exist justifying the authorization ofemergency use of in vitro diagnostic tests for detectionand/or diagnosis of Covid-19 under section 564(b)(1) of theAct, 21 U.S.C. 360bbb-3(b)(1), unless the declaration isterminated or authorization is revoked sooner. Leukocytes [#/volume] correc kenzie for nucleated erythrocytes in Blood by Automated counon 02-26-2024 WBC corrected for nucl RBC Auto (Bld) [#/Vol] Leukocytes [#/volume] corrected for nucleated erythrocytes in Blood by Automated coun High 4.0-11.0 [facility] MCH Auto (RBC) [Entitic mass ]on 02-26-2024 MCH (RBC) [Entitic mass] MCH [Entitic ma ss] by Automated count 26.7-34.0 [facility] MCHC Auto (RBC) [Mass/Vol]on 02-26-2024 MCHC (RBC) [Mass/Vol] MCHC [Mass/volume] by Automated count 29.9-35.2 [facility] MCV Auto (RBC) [Entitic vol] on 02-26-2024 MCV (RBC) [Entitic vol] MCV [Entitic vol ume] by Automated count 81.0-99.0 [facility] Magnesiumon 02-26-2024 Magnesium [Mass/Vol] 2.0 mg/dL Normal 1.9-2.7 [facility] Comment on above: Order Comment: Comme nt add Result Comment: PERF ORMED BY: [place] [address] PATHOLOGIST COOL ROOFING INSTALLER VIDAL MORIN M.D. Performed By: #### M G #### [address] Magnesium [Mass/volume] in S apoorva or PlasmaOrdered By: Madison Munson on 02-26-2024 Magnesium [Mass/Vol] Magnesium [Mass/volume] in Serum or Plasma 1.9-2.7 [facility] No Panel Informationon 02-25 Troponin I High Sensitivity 22020.6 pg/mL Critically high 4.0-51.3 [facility] Comment on above: RESULTS CALLED TO YAZAN MERRITT RN AT 1052CUT-OFF POINTS HAVE BEEN ESTABLISHED BASED ON THE FOURTHUNIVERSAL DEFINITION OF MYOCARDIAL INFARCTION. THE UPPERREFERENCE LIMIT (URL) OF TROPONIN, DEFINED THE 99THPERCENTILE OF cTnI DISTRIBUTION IN A REFERENCE POPULATION,HAS BEEN CONFIRMED THE DECISION THRESHOLD FOR MIDIAGNOSIS.99TH PERCENTILE = 51.4 PG/MLNOTE: HIGH-SENSITIVITY TROPONIN ASSAY IS NOT INTENDED TO BEUSED IN ISOLATION BUT SHOULD BE INTERPRETED IN CONJUNCTIONWITH OTHER DIAGNOSTIC AND CLINICAL INFORMATION. Bedside Influenza Type A Antigen Negative [facility] Comment on above: Negative for Flu A p rotein antigen. Infection due to Flu Acannot be ruled out. Flu A antigen in the sample may bebelow the detection limit of the test. Bedside Influenza Type B Antigen Negative [facility] Comment on above: Negative for Flu B p rotein antigen. Infection due to Flu Bcannot be ruled out. Flu B antigen in the sample may bebelow the detection limit of the test. Absolute Basophils (Manual) 0.00 10 3/uL 0.00-0.10 [facility] Eosinophils # (Manual) 0.00 10 3/uL 0.00-0.70 [facility] Lymphocytes # (Manual) 2.89 10 3/uL 1.20-3.80 [facility] Monocytes # (Manual) 2.53 10 3/uL High 0.30-0.80 [facility] Segmented Neutrophils # (Manual) 12.67 10 3/uL High 1.4-6.5 [facility] Platelet mean volume Auto (B ld) [Entitic vol]on 02-26-2024 Platelet mean volume (Bld) [Entitic vol] Platelet mean volume [Entitic volume] in Blood by Automated count Low 9.5-13.5 [facility] Platelets Auto (Bld) [#/Vol] on 02-26-2024 Platelets (Bld) [#/Vol] Platelets [#/vol ume] in Blood by Automated count 150-450 [facility] RBC Auto (Bld) [#/Vol]on RBC (Bld) [#/Vol] Erythrocytes [#/volume] in Blood by Automated count 4.20-5.40 [facility] Segmented neutrophils/100 WB C Manual cnt (Bld)on 02-26-2024 Segmented neutrophils/100 WBC (Bld) Manual blood segmented neutrophils/100 leukocytes 43.0-75.0 [facility] Serum or plasma albumin/glob ulin mass ratioon 02-26-2024 Albumin/Globulin [Mass ratio] Serum or plasma albumin/globulin mass ratio [facility] Serum or plasma anion gap de terminationon 02-26-2024 Anion gap [Moles/Vol] Serum or plasma an ion gap determination [facility] Troponin I High Sensitivityo n 02-26-2024 Troponin I High Sensitivity 8111.6 pg/mL Off scale high 0.0-15.0 [facility] Comment on above: Order Comment: Comme nt add Result Comment: Crit ical Result : Called to and read back by: LORENZO LAW at: 02/27/2024 00:31:56 by:DH PERFORMED BY: [place] [id number] PATHOLOGIST COOL ROOFING INSTALLER VIDAL MORIN M.D. Performed By: #### M G #### [address] Troponin I High Sensitivity 8341.6 pg/mL Off scale high 0.0-15.0 [facility] Comment on above: Result Comment: Crit ical Result : Called to and read back by: LORENZO LAW at: 02/26/2024 20:46:16 by:LFM PERFORMED BY: [place] [id number] PATHOLOGIST COOL ROOFING INSTALLER VIDAL MORIN M.D. Performed By: #### H S TROP #### [address] Troponin I High Sensitivity 49995.7 pg/mL Off scale high 0.0-15.0 [facility] Comment on above: Result Comment: Crit ical Result : Called to and read back by: JONATAN RHODES at: 02/26/2024 16:43:30 by:LFM PERFORMED BY: [place] [phone] PATHOLOGIST CO[employer] ROOFING INSTALLER VIDAL MORIN M.D. Performed By: #### B MP, CBC #### [place] [address] [place] Basophils Auto (Bld) [#/Vol] on 10-09-2023 Basophils (Bld) [#/Vol] 0.1 10 3/uL 0.0-0.1 [facility] Basophils/100 WBC Auto (Bld) on 10-09-2023 Basophils/100 WBC (Bld) 0.9 % 0.2-2.[address] [facility] Cholesterol in LDL Calc [Mas s/Vol]on 10-09-2023 Cholesterol in LDL [Mass/Vol] 120.0 mg/dL [facility] Comment on above: <100 mg/dl [id number] 0-129 mg/dl NEAR OR ABOVE [id number] mg/dl BORDERLINE [id number] mg/dl HIGH>190 mg/dl VERY HIGH Cholesterol in VLDL Calc [Ma ss/Vol]on 10-09-2023 Cholesterol in VLDL [Mass/Vol] 78.6 mg/dL [facility] Eosinophils/100 WBC Auto (Bl d)on 10-09-2023 Eosinophils/100 WBC (Bld) 2.9 % 0.9-7.0 [facility] Erythrocyte distribution wid th Auto (RBC) [Ratio]on 10-09-2023 Erythrocyte distribution width (RBC) [Ratio] 13.3 % 11.0-15.0 [facility] Estimated glomerular filtrat ion rate (GFR) non- Americanon 10-09-2023 GFR/1.73 sq M.predicted among non-blacks MDRD (S/P/Bld) [Vol rate/Area] mL/min/{1.73_m2} >=60 [facility] Globulin Calc (S) [Mass/Vol] on 10-09-2023 Globulin (S) [Mass/Vol] 3.2 g/dL F [facility] Hematocrit Auto (Bld) [Volum e fraction]on 10-09-2023 Hematocrit (Bld) [Volume fraction] 47.3 % 36.0-48.0 [facility] Hemoglobin [Mass/volume] in Bloodon 10-09-2023 Hemoglobin (Bld) [Mass/Vol] 16.3 g/dL High 12.0-16.0 [facility] Laboratory - Chemistry and C hemistry - challengeon 10-09-2023 Albumin [Mass/Vol] 3.7 g/dL 3.4-5.0 [facility] ALP [Catalytic activity/Vol] 71 U/L 46-116 [facility] ALT [Catalytic activity/Vol] 24 U/L 14-59 [facility] AST [Catalytic activity/Vol] 14 U/L Low 15-37 [facility] Bilirubin [Mass/Vol] 0.5 mg/dL 0.2-1.0 [facility] Calcium [Mass/Vol] 8.9 mg/dL 8.5-10.1 [facility] Chloride [Moles/Vol] 105 mmol/L 98-107 [facility] Cholesterol [Mass/Vol] 256 mg/dL High <=200 [facility] Cholesterol in HDL [Mass/Vol] 58 mg/dL 40-60 [facility] Comment on above: > or =60 mg/dl - LOW CARDIOVASCULAR RISK<40 mg/dl - HIGH CARDIOVASCULAR RISK CO2 [Moles/Vol] 27.8 mmol/L 21.0-32.0 [facility] Creatinine [Mass/Vol] 0.59 mg/dL 0.55-1.02 [facility] GFR/1.73 sq M.predicted MDRD (S/P/Bld) [Vol rate/Area] mL/min/{1.73_m2} >=60 [facility] Glucose [Mass/Vol] 102 mg/dL 74-106 [facility] Potassium [Moles/Vol] 3.7 mmol/L 3.5-5.1 [facility] Protein [Mass/Vol] 6.9 g/dL 6.4-8.2 [facility] Sodium [Moles/Vol] 142 mmol/L 136-145 [facility] Triglyceride [Mass/Vol] 393 mg/dL High <=[address] [facility] TSH Qn 1.421 m[IU]/L 0.358-3.740 [facility] Urea nitrogen [Mass/Vol] 12.0 mg/dL 7.0-18.0 [facility] Urea nitrogen/Creatinine [Mass ratio] 20.3 mg/mg [facility] Laboratory - Hematology and Cell countson 10-09-2023 Immature granulocytes/100 WBC (Bld) 0.7 % High 0.0-0.5 [facility] Leukocytes [#/volume] correc kenzie for nucleated erythrocytes in Blood by Automated counon 10-09-2023 WBC corrected for nucl RBC Auto (Bld) [#/Vol] 9.6 10 3/uL 4.0-11.0 [facility] Lymphocytes Auto (Bld) [#/Vo l]on 10-09-2023 Lymphocytes (Bld) [#/Vol] 2.4 10 3/uL 1.2-3.8 [facility] Lymphocytes/100 WBC Auto (Bl d)on 10-09-2023 Lymphocytes/100 WBC (Bld) 24.6 % 20.5-60.0 [facility] MCH Auto (RBC) [Entitic mass ]on 10-09-2023 MCH (RBC) [Entitic mass] 32.2 pg 26.7-34.0 [facility] MCHC Auto (RBC) [Mass/Vol]on 10-09-2023 MCHC (RBC) [Mass/Vol] 34.5 g/dL 29.9-35.2 [facility] MCV Auto (RBC) [Entitic vol] on 10-09-2023 MCV (RBC) [Entitic vol] 93.5 fL 81.0-99.[address] [facility] Monocytes Auto (Bld) [#/Vol] on 10-09-2023 Monocytes (Bld) [#/Vol] 0.7 10 3/uL 0.3-0.8 [facility] Monocytes/100 WBC Auto (Bld) on 10-09-2023 Monocytes/100 WBC (Bld) 7.5 % 1.7-12.[address] [facility] Neutrophils Auto (Bld) [#/Vo l]on 10-09-2023 Neutrophils (Bld) [#/Vol] 6.1 10 3/uL 1.4-6.5 [facility] Neutrophils/100 WBC Auto (Bl d)on 10-09-2023 Neutrophils/100 WBC (Bld) 63.4 % 43.0-75.0 [facility] No Panel Informationon 10-08 Eosinophils # (Auto) 0.3 10 3/uL 0.0-0.7 [facility] Immature Granulocyte # (Auto) 0.07 10 3/uL High 0.00-0.03 [facility] Nucleated Red Blood Cells/100 WBC 0 [facility] Platelet mean volume Auto (B ld) [Entitic vol]on 10-09-2023 Platelet mean volume (Bld) [Entitic vol] 8.8 fL Low 9.5-13.5 [facility] Platelets Auto (Bld) [#/Vol] on 10-09-2023 Platelets (Bld) [#/Vol] 363 10 3/uL 150-450 [facility] RBC Auto (Bld) [#/Vol]on RBC (Bld) [#/Vol] 5.06 10 6/uL 4.20-5.40 [facility] Serum or plasma albumin/glob ulin mass ratioon 10-09-2023 Albumin/Globulin [Mass ratio] 1.2 {ratio} [facility] Serum or plasma anion gap de terminationon 10-09-2023 Anion gap [Moles/Vol] 12.9 mmol[facility]L [facility] Serum or plasma total choles terol/high density lipoprotein (HDL) cholesterol mass sabiha 10-09-2023 Cholesterol.total/Choles terol in HDL [Mass ratio] 4.4 {ratio} [facility] Comment on above: 3.3 - 4.4 LOW RISK4. 4 - 7.1 AVERAGE RISK7.1 - 11.0 MODERATE RISK>11.0 HIGH RISK Covid-19 PCR (CVDTBH)on 01-16 SARS-CoV-2 (COVID-19) RNA MAYELA+probe Ql (Unsp spec) Not detected Normal NOT DETECTED [facility] Comment on above: Result Comment: This test is not yet approved or cleared by the [place] FDA. When there are no FDA-approved or cleared tests available, and other criteria are met, FDA can make tests available under an emergency access mechanism called an Emergency Use Authorization (EUA). The EUA for this test is supported by the [place] of Health and Human Service's (HHS's) declaration that circumstances exist to justify the emergency use of in vitro diagnostics for the detection and/or diagnosis of the virus that causes COVID-19. This EUA will remain in effect (meaning this test can be used) for the duration of the COVID-19 declaration justifying emergency of IVDs, unless it is terminated or revoked by FDA (after which the test may no longer be used). When diagnostic testing is negative, the possibility of a false negative should be considered in the context of a patient's recent exposures and the presence of clinical signs and symptoms consistent with SARS-CoV-2. Performed By: #### C VDTB #### [facility] [address] [place] [address] Dr. Robbi Roberts INFLUENZA A AND B AGon 02-03 INFLUANE SEE BELOW Normal [facility] Comment on above: Result Comment: Nega tive for Flu A protein angiten. Infection due to Flu A cannot be ruled out. Flu A angiten in the sample may be below the detection limit of the test. Performed By: #### I NFLUAB #### [facility] [address] [place] [address] Dr. Rob[facility] SEE BELOW Normal [facility] Comment on above: Result Comment: Nega tive for Flu B protein antigen. Infection due to Flu B cannot be ruled out. Flu B antigen in the sample may be below the detection limit of the test. Performed By: #### I NFLUAB #### [facility] [address] [place] [address] Dr. Robbi Roberst INFLUENZA A AG Negative Normal NEGATIVE SEE COMMENT [facility] Comment on above: Performed By: #### I NFLUAB #### [facility] [address] [place] [address] Dr. Robbi Roberts INFLUENZA B AG Negative Normal NEGATIVE SEE COMMENT [facility] Comment on above: Performed By: #### I NFLUAB #### [facility] [address] [place] [address] Dr. Robbi Roberts INTERNAL CONTROLS Within Normal Limits Normal Wi thin Normal Limits [facility] Comment on above: Performed By: #### I NFLUAB #### [facility] [address] [place] [address] Dr. Robbi Roberts PAP ACOG PANEL 2: 30 to 65on 05-14-2021 . . Normal [facility] Comment on above: Result Comment: Perf ormed at: WB Performed By: #### [id number] #### [facility] [address] [place] [address] Dr. Robbi Roberts Age Gdln ACOG Testing 30-65 Normal [facility] Comment on above: Performed By: #### [id number] #### [facility] [address] [place] [address] Dr. Robbi Roberts DIAGNOSIS: Comment Normal [facility] Comment on above: Result Comment: NEGA TIVE FOR INTRAEPITHELIAL LESION OR MALIGNANCY. Performed at: WB Performed By: #### [id number] #### [facility] [address] [place] [address] Dr. Robbi Roberts HPV Aptima Negative Normal Negative [facility] Comment on above: Result Comment: This nucleic acid amplification test detects fourteen high-risk HPV types (16,18,31,33,35,39,45,51,52,56,58,59,66,68) without differentiation. Performed at: =G Performed By: #### [id number] #### [facility] [address] [place] [address] Dr. Robbi Roberts Methodology: Comment [facility] Comment on above: Result Comment: This liquid based ThinPrep(R) pap test was screened with the use of an image guided system. Performed at: WB Performed By: #### [id number] #### [facility] [address] [place] [address] Dr. Robbi Roberts Note: Comment Normal [facility] Comment on above: Result Comment: The Pap smear is a screening test designed to aid in the detection of premalignant and malignant conditions of the uterine cervix. It is not a diagnostic procedure and should not be used as the sole means of detecting cervical cancer. Both false-positive and false-negative reports do occur. . Performed at: WB Performed By: #### [id number] #### [facility] [address] [place] [address] Dr. Robbi Roberts Performed by: Comment Normal [facility] Comment on above: Result Comment: Luz Maria Haynes, Wick Tender (ASCP) Performed at: WB Performed By: #### [id number] #### [facility] [address] [place] [address] [address] Robbi Roberts Specimen adequacy: Comment Normal [facility] Comment on above: Result Comment: Sati sfactory for evaluation. No endocervical component is identified. Performed at: WB Performed By: #### [id number] #### [facility] [address] [address] [address] Robbi Roberts Vital Signs Date Time Vital Sign Value Performing Clinician Facility 09-07-2024 11:04-0400 Body height 152.4 cm Prabhjot Mendiola DO Work Phone: [facility] 09-07-2024 11:04-0400 Body mass index (BMI) [Ratio] 26.17 kg/m2 Prabhjot Mendiola DO Work Phone: [facility] 09-07-2024 11:04-0400 Body weight 60.78 kg Prabhjot Mendiola DO Work Phone: [facility] 09-07-2024 11:04-0400 Diastolic blood pressure 84 mm[Hg] Prabhjot Mendiola DO Work Phone: [facility] 09-07-2024 11:04-0400 Heart rate 68 /min Prabhjot Mendiola DO Work Phone: [facility] 09-07-2024 11:04-0400 Systolic blood pressure 122 mm[Hg] Prabhjot Mendiola DO Work Phone: [facility] 05-30-2024 09:08-0400 Body height 152.4 cm [facility] 05-30-2024 09:08-0400 Body mass index (BMI) [Ratio] 25.7 kg/m2 [facility] 05-30-2024 09:08-0400 Body weight 59.87 kg [facility] 05-30-2024 09:08-0400 Diastolic blood pressure 80 mm[Hg] [facility] 05-30-2024 09:08-0400 Heart rate 88 /min [facility] 05-30-2024 09:08-0400 Systolic blood pressure 113 mm[Hg] [facility] 03-14-2024 14:31-0500 Diastolic blood pressure 60 mm[Hg] Prabhjot Mendiola DO Work Phone: [facility] 03-14-2024 14:31-0500 Systolic blood pressure 90 mm[Hg] Prabhjot Mendiola DO Work Phone: [facility] 03-14-2024 14:29-0500 Body height 152.4 cm Prabhjot Mendiola DO Work Phone: [facility] 03-14-2024 14:29-0500 Body mass index (BMI) [Ratio] 27.34 kg/m2 Prabhjot Mendiola DO Work Phone: [facility] 03-14-2024 14:29-0500 Body weight 63.5 kg Prabhjot Mendiola DO Work Phone: [facility] 03-14-2024 14:29-0500 Heart rate 76 /min Prabhjot Mendiola DO Work Phone: [facility] 03-02-2024 09:51-0500 Body height 152.4 cm Beckie Balderrama MD Work Phone: [facility] 03-02-2024 09:51-0500 Body mass index (BMI) [Ratio] 28.1 kg/m2 Beckie Balderrama MD Work Phone: [facility] 03-02-2024 09:51-0500 Body weight 65.31 kg Beckie Balderrama MD Work Phone: [facility] 03-02-2024 09:51-0500 Diastolic blood pressure 63 mm[Hg] Beckie Balderrama MD Work Phone: [facility] 03-02-2024 09:51-0500 Heart rate 79 /min Beckie Balderrama MD Work Phone: [facility] 03-02-2024 09:51-0500 SaO2% (BldA) [Mass fraction] 97 % Beckie Balderrama MD Work Phone: [facility] 03-02-2024 09:51-0500 Systolic blood pressure 90 mm[Hg] Beckie Balderrama MD Work Phone: [facility] 02-29-2024 11:04-0500 Diastolic blood pressure 55 mm[Hg] Beckie Balderrama MD Work Phone: [facility] 02-29-2024 11:04-0500 Heart rate 69 /min Beckie Balderrama MD Work Phone: [facility] 02-29-2024 11:04-0500 Respiratory rate 18 /min Beckie Balderrama MD Work Phone: [facility] 02-29-2024 11:04-0500 SaO2% (BldA) [Mass fraction] 96 % Beckie Balderrama MD Work Phone: [facility] 02-29-2024 11:04-0500 Systolic blood pressure 97 mm[Hg] Beckie Balderrama MD Work Phone: [facility] 02-29-2024 08:00-0500 Body temperature 98 [degF] Beckie Balderrama MD Work Phone: [facility] 02-29-2024 05:09-0500 Body weight 67.9 kg Beckie Balderrama MD Work Phone: [facility] 02-28-2024 14:15-0500 Inhaled oxygen flow rate 1 L/min Beckie Balderrama MD Work Phone: [facility] 02-26-2024 16:21-0500 Body height 152.4 cm Beckie Balderrama MD Work Phone: [facility] 12-03-2023 10:35-0400 Diastolic blood pressure 108 mm[Hg] [facility] 12-03-2023 10:35-0400 Heart rate 108 /min [facility] 12-03-2023 10:35-0400 Systolic blood pressure 153 mm[Hg] [facility] 12-03-2023 10:30-0400 Body height 151.13 cm [facility] 12-03-2023 10:30-0400 Body mass index (BMI) [Ratio] 28 kg/m2 [facility] 12-03-2023 10:300400 Body weight 63.95 kg [facility] 10-07-2023 11:110400 Body height 151.13 cm [facility] 10-07-2023 11:11-0400 Body mass index (BMI) [Ratio] 27.8 kg/m2 [facility] 10-07-2023 11:110400 Body weight 63.5 kg [facility] 10-07-2023 11:11-0400 Diastolic blood pressure 90 mm[Hg] [facility] 10-07-2023 11:110400 Heart rate 78 /min [facility] 10-07-2023 11:110400 Systolic blood pressure 134 mm[Hg] [facility] Encounters Encounter Date Encounter Type Care Provider Facility Start: 09-07-2024 End: 09-07-2024 ambulatory [facility] Start: 09-07-2024 End: 09-07-2024 Office outpatient visit 15 minutes Prabhjot Mendiola DO Work Phone: [facility] Comment on above: ASHD (arteriosclerot ic heart disease); Myocardial infarction, unspecified [place] type, unspecified artery (Multi); Coronary arteriosclerosis after percutaneous transluminal coronary angioplasty (PTCA); BMI 26.0-26.9,adult; Smoker Start: 05-30-2024 End: 05-30-2024 ambulatory [facility] Work Phone: Start: 05-30-2024 End: 05-30-2024 Patient encounter procedure [facility] Work Phone: Start: 03-14-2024 End: 03-14-2024 ambulatory [facility] Start: 03-14-2024 End: 03-14-2024 Transitional care manage srvc 14 day discharge Prabhjot Mendiola DO Work Phone: [facility] Comment on above: ASHD (arteriosclerot ic heart disease); Myocardial infarction, unspecified [place] type, unspecified artery (Multi); Coronary arteriosclerosis after percutaneous transluminal coronary angioplasty (PTCA); Chronic fatigue; Smoker; BMI 27.0-27.9,adult Start: 03-02-2024 End: 03-02-2024 ambulatory Beckie Balderrama MD Work Phone: [facility] Work Phone: Start: 03-02-2024 End: 03-02-2024 Patient encounter procedure Beckie Balderrama MD Work Phone: [facility] Work Phone: Start: 03-01-2024 Non-patient / Non-visit Beckie Balderrama MD Work Phone: [facility] Work Phone: Start: 02-26-2024 End: 02-29-2024 Evaluation and management of inpatient Beckie Balderrama MD Work Phone: [facility] Work Phone: Start: 02-26-2024 Non-patient / Non-visit Beckie Balderrama MD Work Phone: [facility] Work Phone: Start: 12-03-2023 End: 12-03-2023 ambulatory [facility] Work Phone: Start: 12-03-2023 End: 12-03-2023 Patient encounter procedure [facility] Work Phone: Start: 10-09-2023 Non-patient / Non-visit [facility] Work Phone: Start: 10-07-2023 Patient encounter status [facility] Start: 10-07-2023 End: 10-07-2023 ambulatory [facility] Work Phone: Start: 10-07-2023 End: 10-07-2023 Encounter for general adult medical examination without abnormal findings [facility] Start: 10-07-2023 End: 10-07-2023 Patient encounter procedure [facility] Work Phone: Start: 05-15-2022 End: 05-15-2022 ambulatory Beckie Balderrama Other [employer] Other Start: 05-15-2022 Telephone encounter Beckie THOMAS [facility] Start: 04-17-2022 (Televisit) Televisit Beckie Balderrama F [facility] Start: 04-17-2022 End: 04-17-2022 ambulatory Beckie Balderrama Other [employer] Other Start: 02-03-2022 End: 02-03-[address] BECKIE BALDERRAMA Facility:[facility] Start: 05-09-2021 End: 05-09-[address] BECKIE BALDERRAMA Facility: Procedures Date Procedure Procedure Detail Performing Clinician Start: 02-28-2024 End: 02-28-2024 Beckie Balderrama MD Work Phone: Start: 02-28-2024 CL [facility] Angio Gorge Balderrama MD Work Phone: Start: 02-28-2024 CL PCI HR PAYROLL COORDINATOR Ea Add CX (Right) Beckie Balderrama MD Work Phone: Start: 02-28-2024 CL Stent 1st Vessel CX JASMYNE (Right) Beckie Balderrama MD Work Phone: Start: 02-27-2024 Plain chest X-ray Emily Balderrama MD Work Phone: Plan of Treatment Date Care Activity Detail Author Start: 03-14-2025 End: 03-14-2025 Patient encounter procedure 03/14/2025 2:30 PM EST Office Visit [facility] [address] [facility] [address] [place] [address] Prabhjot Mendiola DO [address] [facility] [address] [place] [address] [facility] Start: 10-17-2024 Influenza vaccination Influenza Vaccine (#1) [facility] Start: 09-07-2024 End: 09-07-2024 Patient encounter procedure 09/07/2024 10:50 AM EDT Office Visit [facility] [address] [place] [address] Prabhjot Mendiola DO [address] [place] [address] [facility] Start: 03-14-2024 End: 03-14-2025 Alanine aminotransferase [Enzymatic activity/volume] in Serum or Plasma by With P-5'-P Alanine Aminotransferase Lab Routine ASHD (arteriosclerotic heart disease) Myocardial infarction, unspecified [place] type, unspecified artery (Multi) Coronary arteriosclerosis after percutaneous transluminal coronary angioplasty (PTCA) Expected: 03/14/2024, Expires: 03/14/2025 [facility] Work Phone: Comment on above: Expected: 03/14/2024, Expires: Start: 03-14-2024 End: 03-14-2025 Aspartate aminotransferase [Enzymatic activity/volume] in Serum or Plasma by With P-5'-P Aspartate Aminotransferase Lab Routine ASHD (arteriosclerotic heart disease) Myocardial infarction, unspecified [place] type, unspecified artery (Multi) Coronary arteriosclerosis after percutaneous transluminal coronary angioplasty (PTCA) Expected: 03/14/2024, Expires: 03/14/2025 [facility] Work Phone: Comment on above: Expected: 03/14/2024, Expires: Start: 03-14-2024 End: 03-14-2025 Lipid 1996 panel - Serum or Plasma Lipid Panel Lab Routine ASHD (arteriosclerotic heart disease) Myocardial infarction, unspecified [place] type, unspecified artery (Multi) Coronary arteriosclerosis after percutaneous transluminal coronary angioplasty (PTCA) Expected: 03/14/2024, Expires: 03/14/2025 [facility] Service Area Work Phone: Comment on above: Expected: 03/14/2024, Expires: Start: 03-14-2024 End: 03-14-2025 Lipoprotein a [Mass/volume] in Serum or Plasma Lipoprotein a Lab Routine ASHD (arteriosclerotic heart disease) Myocardial infarction, unspecified [place] type, unspecified artery (Multi) Coronary arteriosclerosis after percutaneous transluminal coronary angioplasty (PTCA) Expected: 03/14/2024, Expires: 03/14/2025 [facility] Work Phone: Comment on above: Expected: 03/14/2024, Expires: Start: 02-29-2024 End: 02-29-2024 [facility] Start: 02-26-2024 Hospital admission [facility] Start: 02-26-2024 Referral to architectural drafting instructor [facility] Start: 10-18-2023 COVID-19 Vaccine ( season) COVID-19 Vaccine ( season) [facility] Start: 10-18-2023 Influenza vaccination Influenza Vaccine (#1) [facility] Start: 10-07-2023 Patient referral [facility] Work Phone: Start: 2016 Zoster Vaccines (1 of 2) Zoster Vaccines (1 of 2) [facility] Start: 2006 Screening for malignant neoplasm of breast Mammogram [facility] Start: 1988 DTaP/Tdap/Td Vaccines (1 - Tdap) DTaP/Tdap/Td Vaccines (1 - Tdap) [facility] Start: 09-06-1987 Screening for malignant neoplasm of cervix [facility] Start: 1985 Hepatitis B Vaccines (1 of 3 - 19+ 3-dose series) Hepatitis B Vaccines (1 of 3 - 19+ 3-dose series) [facility] Start: 1985 Pneumococcal vaccination Pneumococcal Vaccine (1 of 2 - PCV) [facility] Start: 1984 Diabetes mellitus screening Diabetes Screening [facility] Start: 1984 Hepatitis C screening Hepatitis C Screening [facility] Start: 09-06-1967 MMR Vaccines (1 of 1 - Standard series) MMR Vaccines (1 of 1 - Standard series) [facility] Start: 1966 HIV screening HIV Screening [facility] Start: 1966 Lipid panel Lipid Panel [facility] Start: 1966 Screening for malignant neoplasm of colon [facility] Start: 1966 Yearly Adult Physical Yearly Adult Physical [facility] Comprehensive metabo lic 2000 panel - Serum or Plasma [facility] Lipoprotein a [Moles/volume] in Serum or Plasma [facility] MG Breast - bilatera l Screening [facility] Patient Education [facility] Work Phone: Patient referral [facility] Work Phone: [facility] Immunizations Immunization Date Immunization Notes Care Provider Fa cility 10-26-2020 diphtheria, tetanus toxoids and acellular pertussis vaccine, unspecified formulation [facility] Payers Date Payer Category Payer Blue [employer] Blue Sh[employer] ld Managed Care [facility] [id number] 2024 Unknown [id number] 2024 Self-pay 2019 Managed Care (Private) [facility] [employer] [id number] 1966 Unknown [id number] 1966 Unknown [id number] 1966 Unknown [id number] 1966 Unknown [id number] 1959 Unknown [id number] 1959 Unknown [id number] Unknown [id number] Social History Date Type Detail Facility Start: 03-14-2024 End: 09-07-2024 Sex Assigned At [facility] [employer] Other Start: 10-07-2023 End: 02-28-2024 Tobacco smoking status NHIS Smoker (finding) [facility] Start: 1965 Sex Assigned At Female F [facility] Start: 02-29-2024 End: 05-30-2024 Sex Female (finding) [facility] Start: 03-14-2024 Tobacco smoking stat us NHIS Occasional tobacco smoker [facility] Work Phone: History of tobacco use Cigarette Smoker [facility] Work Phone: Start: 03-14-2024 End: 09-07-2024 Tobacco use and exposure Smokeless tobacco non-user [facility] Work Phone: Start: 03-14-2024 End: 09-07-2024 Alcoholic beverage intake Ex-drinker (finding) [facility] Work Phone: Start: 03-14-2024 End: 09-07-2024 History of Social function [facility] Work Phone: Start: 1965 Sex assigned at Not on file [facility] Work Phone: Start: 03-04-2024 End: 03-14-2024 Exposure to SARS-CoV-2 (event) Not sure [facility] Start: 09-07-2024 Tobacco smoking stat us NHIS Smokes tobacco daily [facility] Start: 02-26-2024 Sex Female [facility] Medical Equipment Procedure Code Equipment Code Equipment Origin al Text Equipment Identifier Dates CL STENT ZACKARY FRONTIER 2.5 X 26 FDA Start: 02-28-2024 CL STENT ZACKARY FRONTIER 2.5 X 26 FDA Start: 02-28-2024 CL STENT ZACKARY FRONTIER 2.5 X 26 FDA Start: 02-28-2024 Goals Date Patient Goal Desired Activity /State Functional Status Date Assessment Result Facility 02-29-2024 Functional status Patient at [facility] Work Phone: Mental Status Date Assessment Result Facility 02-29-2024 Cognitive function Cognitive Sta tus Patient at [facility] Work Phone: Clinical Notes 04-17-2022 to 09-07-2024 Prabhjot Mendiola, DO - 09/07/2024 10:50 AM EDTPatient InstructionsAttachPamela Mendiola, DO - 03/14/2024 2:00 PM ESTPatient Instructions Note Date & Type Note Facility 09-07-2024 History of Present illness Narrative Chief Complaint Patient presents with Follow-up 6 months ASHD (arteriosclerotic heart disease) Subjective Angela Radford is a 59 y.o. female 59-year-old female returns for 6-month cardiovascular office visit and doing very well. She denies any cardiovascular events or complaints or nitrate usage or hospitalizations. She complains of minor bruising likely associated with her DAPT therapy. She remains compliant on medical therapies unfortunately she still smoking we have counseled her for 5 minutes today on smoking cessation. Recommendations: Follow-up in 6 months at which point in time we can discontinue her ticagrelor, and will otherwise obtain appropriate lipid panel liver function test etc. prior to follow-up Review of Systems All other systems reviewed and are negative. Vitals: 09/07/24 1104 BP: 122/84 BP Location: Left arm Patient Position: Sitting Pulse: 68 Weight: 60.8 kg (134 lb) Height: (!) 1.524 m (5') Objective Physical Exam Constitutional: Appearance: Normal appearance. HENT: Nose: Nose normal. Neck: Vascular: No carotid bruit. Cardiovascular: Rate and Rhythm: Normal rate. Pulses: Normal pulses. Heart sounds: Normal heart sounds. Pulmonary: Effort: Pulmonary effort is normal. Abdominal: General: Bowel sounds are normal. Palpations: Abdomen is soft. Musculoskeletal: General: Normal range of motion. Cervical back: Normal range of motion. Right lower leg: No edema. Left lower leg: No edema. Skin: General: Skin is warm and dry. Neurological: General: No focal deficit present. Mental Status: She is alert. Psychiatric: Mood and Affect: Mood normal. Behavior: Behavior normal. Thought Content: Thought content normal. Judgment: Judgment normal. Allergies Phenergan [promethazine] Current Medications Current Outpatient Medications Medication Instructions ascorbic acid (VITAMIN C) 500 mg, Daily aspirin 81 mg, oral, Daily (0630) atorvastatin (LIPITOR) 80 mg, oral, Nightly Brilinta 90 mg, oral, Every 12 hours scheduled (30,1830) cholecalciferol (VITAMIN D3) 1,000 Units, Daily metoprolol succinate XL (TOPROL-XL) 25 mg, oral, Daily, Do not crush or chew. nitroglycerin (NITROSTAT) 0.4 mg, Every 5 min PRN tiZANidine (Zanaflex) 2 mg tablet 1 tablet, 3 times daily (0900,1400,1900) valACYclovir (Valtrex) 1 gram tablet 2 tablets, Every 12 hours scheduled (0630,1830) valsartan (DIOVAN) 40 mg, oral, Daily Assessment/Plan 1. ASHD (arteriosclerotic heart disease) Follow Up In Cardiology 2. Myocardial infarction, unspecified [place] type, unspecified artery (Multi) 3. Coronary arteriosclerosis after percutaneous transluminal coronary angioplasty (PTCA) 4. BMI 26.0-26.9,adult 5. Smoker Scribe Attestation By signing my name below, IMarley LPN, Scribe attest that this documentation has been prepared under the direction and in the presence of Prabhjot Mendiola DO. Provider Attestation - Scribe documentation All medical record entries made by the Scribe were at my direction and personally dictated by me. I have reviewed the chart and agree that the record accurately reflects my personal performance of the history, physical exam, discussion and plan. documented in this encounter [facility] Work Phone: 09-07-2024 Instructions Marley Redman LPN - 09/07/2024 10:50 AM EDT Please bring all medicines, vitamins, and herbal supplements with you when you come to the office. Prescriptions will not be filled unless you are compliant with your follow up appointments or have a follow up appointment scheduled as per instruction of your physician. Refills should be requested at the time of your visit. BMI was above normal measurement. Current weight: 60.8 kg (134 lb) Weight change since last visit (-) denotes wt loss -6 lbs Weight loss needed to achieve BMI 25: 6.3 Lbs Weight loss needed to achieve BMI 30: -19.3 Lbs Provided instructions on dietary changes Provided instructions on exercise. Brilinta 6 more months Ok for dental work after February, when off Brilinta The following attachments cannot be sent through Care Everywhere.Heart Healthy Diet (Afghan)documented in this encounter [facility] Work Phone: 03-14-2024 History of Present illness Narrative Subjective Angela Radford is a 58 y.o. female Chief Complaint Follow-up 58-year-old female returns for TCM office visit status post inferolateral STEMI with primary revascularization of the mid circumflex and second OM branch. The distal circumflex is HR PAYROLL COORDINATOR and unable to be crossed going into the third OM branch. LV function is preserved. Patient continues smoking but is cut down substantially and is professed that she wants to quit tobacco altogether. She has significant complaints of fatigue, no angina, shortness of breath or heart failure, nitroglycerin use or recurrent hospitalizations. We reviewed her anatomy and interventional reports with her and her in detail, counseled her on tobacco cessation for 5 to 10 minutes today, reviewed recent outpatient labs revealing LP(a) of 274, glucose of 106 as well as reviewed current medical therapies. Her fatigue factor which is quite significant, is likely secondary to beta-jayne side effect. We have told her to cut her metoprolol succinate in half to 25 mg daily Left ventricular function is measured at 50%. Recommendations: Smoking cessation counseling, cut metoprolol down to 25 mg daily, proceed with cardiac rehab, will follow-up in 6 months Review of Systems Constitutional: Positive for malaise/fatigue. All other systems reviewed and are negative. Vitals: 03/14/24 1429 03/14/24 1431 BP: 92/60 90/60 BP Location: Right arm Left arm Patient Position: Sitting Sitting Pulse: 76 Weight: 63.5 kg (140 lb) Height: 1.524 m (5') Objective Physical Exam Constitutional: Appearance: Normal appearance. HENT: Nose: Nose normal. Neck: Vascular: No carotid bruit. Cardiovascular: Rate and Rhythm: Normal rate. Pulses: Normal pulses. Heart sounds: Normal heart sounds. Pulmonary: Effort: Pulmonary effort is normal. Abdominal: General: Bowel sounds are normal. Palpations: Abdomen is soft. Musculoskeletal: General: Normal range of motion. Cervical back: Normal range of motion. Right lower leg: No edema. Left lower leg: No edema. Skin: General: Skin is warm and dry. Neurological: General: No focal deficit present. Mental Status: She is alert. Psychiatric: Mood and Affect: Mood normal. Behavior: Behavior normal. Thought Content: Thought content normal. Judgment: Judgment normal. Allergies Phenergan [promethazine] Current Medications Current Outpatient Medications: ascorbic acid (Vitamin C) 500 mg ER capsule, Take 1 capsule (500 mg) by mouth once daily., Disp: , Rfl: aspirin 81 mg chewable tablet, Chew 1 tablet (81 mg) early in the morning.., Disp: , Rfl: atorvastatin (Lipitor) 80 mg tablet, Take 1 tablet (80 mg) by mouth once daily at bedtime., Disp: , Rfl: Brilinta 90 mg tablet, Take 1 tablet (90 mg) by mouth every 12 hours., Disp: , Rfl: cholecalciferol (Vitamin D3) 25 MCG (1000 UT) tablet, Take 1 tablet (1,000 Units) by mouth once daily., Disp: , Rfl: nitroglycerin (Nitrostat) 0.4 mg SL tablet, Place 1 tablet (0.4 mg) under the tongue every 5 minutes if needed., Disp: , Rfl: tiZANidine (Zanaflex) 2 mg tablet, Take 1 tablet (2 mg) by mouth 3 times a day. PRN, Disp: , Rfl: valACYclovir (Valtrex) 1 gram tablet, Take 2 tablets (2,000 mg) by mouth every 12 hours. PRN, Disp: , Rfl: valsartan (Diovan) 40 mg tablet, Take 1 tablet (40 mg) by mouth once daily., Disp: , Rfl: Assessment/Plan 1. ASHD (arteriosclerotic heart disease) 2. Myocardial infarction, unspecified [place] type, unspecified artery (Multi) 3. Coronary arteriosclerosis after percutaneous transluminal coronary angioplasty (PTCA) 4. Chronic fatigue 5. Smoker 6. BMI 27.0-27.9,adult Scribe Attestation By signing my name below, ILenka LPN, Scribe attest that this documentation has been prepared under the direction and in the presence of Prabhjot Mendiola DO. Provider Attestation - Scribe documentation All medical record entries made by the Scribe were at my direction and personally dictated by me. I have reviewed the chart and agree that the record accurately reflects my personal performance of the history, physical exam, discussion and plan. documented in this encounter [facility] Work Phone: 03-14-2024 Instructions Lenka Castillo LPN - 03/14/2024 2:00 PM EST Please bring all medicines, vitamins, and herbal supplements with you when you come to the office. Prescriptions will not be filled unless you are compliant with your follow up appointments or have a follow up appointment scheduled as per instruction of your physician. Refills should be requested at the time of your visit. BMI was above normal measurement. Current weight: 63.5 kg (140 lb) Weight change since last visit (-) denotes wt loss 140 lbs Weight loss needed to achieve BMI 25: 12.3 Lbs Weight loss needed to achieve BMI 30: -13.3 Lbs Provided instructions on dietary changes Provided instructions on exercise. documented in this encounter [facility] Work Phone: 03-02-2024 Evaluation note Diagnosis Onset Date Resolution ACS (acute coronary syndrome) resolved March 02 9:47am Non-ST elevation myocardial infarction (NSTEMI), initial care episode resolved March 02 9:47am Tobacco abuse resolved February 9:47am [facility] Work Phone: 1(761) 832-702401-13-2025 [place] [address] Discharge Summary Signed Patient: Angela Radford MR#: [id number] : 1965 Acct:[id number] Age/Sex: 58 / F Adm Date: 5 Loc: Room: [address] [place] [address]: Javier Leon MD Copies to: MD Beckie Beach MD~ Providers Date of Discharge: 02/29/24 Discharging Provider: Javier Leon Primary Care Provider: Beckie Balderrama Consults: 02/26/24 15:45 Consult to Cardiology Routine Comment: Consulting Provider: [facility], [facility] Reason For Exam: nstemi Has Provider Been Notified: Yes Date of Notification: 02/26/24 Time of Notification: 16:12 Discharge Diagnosis Final Diagnosis Final Discharge Diagnosis: Non-STEMI, revascularization of Mid circumflex and obtuse marginal branch duringthis admission Chronic problems Tobacco abuse a pack a day Anxiety disorder Summary Hospital Course Hospital course: Patient is a pleasant 58-year-old female, presented emergency department with complaints of chest tightness for few days radiating to the neck and teeth. Evaluation was consistent with a non-STEMI. She was admitted to the hospital and underwent coronary angiogram. Significant disease was identified, requiringstenting of the mid circumflex artery and obtuse marginal. She was started on medical therapy for CAD and AZ. No complications occurred and she was discharged home in stable condition in February 28. We discussed at length the importance of tobacco cessation. LP(a), APO A and APO B were sent and are pending at time of discharge, given her family history at relatively young age. Time Spent with Patient Time spent providing/coordinating discharge services (# min): 40 Surgeries and Procedures Operation Date: 02/28/24 12:30 Actual Procedures p CL LHC & COR Angio - Kierra Mendiola DO p CL Stent 1st Vessel CX JASMYNE(Right) - Kierra Mendiola DO p CL PCI HR PAYROLL COORDINATOR Ea Add CX(Right) - Kierra Mendiola DO Discharge Plan Discharge Plan Patient Disposition: Home Activity: Ambulate as Tolerated Comment: See coronary angioplasty dc instructions below for activity restrictions. Diet: Low-Sodium and Low-Cholesterol Additional Instructions: DISCHARGE INSTRUCTIONS FOR ANGIOPLASTY/CORONARY/PERIPHERAL/STENT IMPLANT FOR ADULT ANTICOAGULATION -Since the greatest risk of a blood clot forming with the stent occurs in the first 2-3 weeks afterimplantation, you will need to take anticoagulants for at least 12-18 months. ANTICOAGULATION MEDICATION Aspirin 81mg once a day, Ticagrelor (Brilinta) 90mg twice a day STATIN MEDICATION Atorvastatin (Lipitor) 80 mg Drug-Eluting Stent (JASMYNE) DO NOT discontinue Brilinta/Aspirin during the first few months regardless of what you are advised by your family doctor or pharmacist, without first calling the architectural drafting instructor who implanted the stent. If you require pain relief during this time, please take only ACETAMINOPHEN (TYLENOL)- NO additional aspirin or ibuprofen. DISCHARGE ACTIVITIES ARE FOLLOWS: First week after discharge: -Take it easy at home, no strenuous activity. -Do not lift or pull objects over 10-15 pounds, including children, and groceries for four weeks. If puncture site is at wrist do NOT lift more than three pounds for three days. - May walk up stairs. -May shower. -No excessive scrubbing of the affected site (groin). -May ride in car. -May resume sexual intercourse after 1-2 weeks. -No MRI for 12 days. -May drive in 4-7 days. -If puncture site is at the wrist do not manipulate the wrist for 24 hours, and no soaking wrist for three days. Second Week: -May take a bath -May start walking 3 times a week for 15-20 minutes at a leisurely pace. You should be able to carry on a conversation comfortably without feeling winded. -No strenuous activity as in jogging, running, weight lifting, stair steppers, etc. until the architectural drafting instructor approves these activities. Check with the architectural drafting instructor on your first follow-up visit. CALL YOUR DESIGN EDITOR: -If bleeding should occur from the catheter insertion site- apply pressure to the site then immediately call us. -Report any fever, redness, drainage, increased swelling, or firmness at the catheter insertion site. Some bruising or slight swelling may be present at thetime of discharge. -Should arm or leg become cold, numb, white, or blue, contact the architectural drafting instructor immediately. -IF you should experience episodes of angina, e.g. chest discomfort, heaviness, tightness, pressureburning with or without radiation to the neck, jaw, arms or back- use 1 Nitrostat tablet under yourtongue every 5-10 minutes and up to three tablets. IF NO RELIEF, CALL 911 or GO TO THE NEAREST EMERGENCY ROOM. -Please notify our office if you have recurrent angina. -Cardiac Rehab Education Provided. Participation in the Cardiopulmonary Rehabilitation program is recommended. The attending architectural drafting instructor or a nurse clinician should provide you with specificinstructions regarding activity, diet, medications, and further follow up for you. Follow the medication instructions provided on your discharge. If the dosages and instructions on this sheet differ from the dosage and instructions on the bottle, follow the instructions on the bottle. [facility] is not responsible for incorrect prescription information provided by thepatient during their visit. Do not stop your medications without consulting your health care provider. Please take the list with you to your next doctor's appointment. Instructions: Heart attack - Discharge instructions, Drug Eluting Stents, Chest pain - Discharge instructions, Mediterranean diet, Angina, Angiogram /Angioplasty / Stent Placement, Know your Meds Prescriptions: New aspirin [Children's Aspirin] 81 mg Tablet,Chewable 81 mg PO DAILY 90 Days Qty: 90 3RF metoprolol succinate [Toprol XL] 50 mg tablet extended release 24 hr 50 mg PO DAILY Qty: 90 3RF valsartan 40 mg tablet 40 mg PO DAILY Qty: 90 3RF atorvastatin [Lipitor] 80 mg tablet 80 mg PO QHS Qty: 90 3RF nitroglycerin 0.4 mg tablet, sublingual 0.4 mg sublingual Q5M PRN (Reason: chest pain) 30 Days Qty: 25 3RF Rx Instructions: until response; do not exceed 3 doses per event Brilinta 90 mg tablet 90 mg PO Q12HR 90 Days Qty: 180 3RF Continued valacyclovir 1 gram tablet 2,000 mg PO BID Qty: 4 0RF Patient Comments: Pt takes medication PRN for outbreaks. cholecalciferol (vitamin D3) [Vitamin D3] 125 mcg (5,000 unit) tablet 5,000 unit PO DAILY ascorbic acid (vitamin C) [Vitamin C] 500 mg tablet 500 mg PO DAILY tizanidine 2 mg tablet 2 mg PO Q8HR PRN (Reason: muscle spasticity) Qty: 30 0RF Other Ambulatory Orders: CPR cardiac rehab ed (Routine) Timeframe: 1 Week Location: Determined by Patient Ordered By: Javier Leon Follow Up: Kierra Mendiola DO [Active Staff - D.O.] - 03/11/24 10:00 am Beckie Balderrmaa MD [Primary Care Provider] - 03/02/24 10:00 am (You have been scheduled for a follow up appointment for the following date and time, please call to reschedule if needed.) Exam Physical Exam Vital Signs: Temp Pulse Resp BP Pulse Ox O2 Del Method O2 Flow Rate 98.0 F 69 18 97/55 L 96 Room Air 1 02/29/24 08:00 02/29/24 11:04 02/29/24 11:04 02/29/24 11:04 02/29/24 11:04 02/29/24 11:04 02/28/24 14:15 Diagnostic Studies Completed and Pending Studies Pending studies at discharge: 02/26/24 15:45 ECG 12 lead ECG Stat 02/29/24 10:11 Lipoprotein (a) Routine [facility] Routine Labs on day of discharge: 02/29/24 03:59: Corrected WBC 13.5 H, Uncorrected WBC Count 13.5 H, RBC 4.09, Hgb 12.7, Hct 38.3, MCV 93.6, MCH 31.0, MCHC 33.1, RDW 13.2, Plt Count 317, MPV 8.1, Neut % (Auto) 67.7, Lymph % (Auto) 20.5, [place] % (Auto) 10.1, Eos % (Auto) 0.9, Baso % (Auto) 0.8, Nucleat RBC Rel Count 0.0, Neut # (Auto) 9.2 H, Lymph # (Auto) 2.8, [place] # (Auto) 1.4 H, Eos # (Auto) 0.1, Baso # (Auto) 0.1, PHA Creatinine Clear 108.42, Sodium 141, Potassium 3.8, Chloride 108 H, Carbon Dioxide 23.6, Anion Gap 13.2, BUN12, Creatinine 0.49 L, Est GFR (CKD-EPI) > 60.0, Glucose 106 H, Calcium 8.9 Documented By: Javier Leon MD 02/29/24 1318 Signed By: 02/29/[address] [place], [place] [id number] [place] [address] Cardiology Progress Note Signed Patient: Angela Radford MR#: [id number] : 1965 Acct:[id number] Age/Sex: 58 / F Adm Date: 5 Loc: Room: [address] [place] [address] Type: ADM IN Attending Dr: Javier Leon MD Copies to: ~ Date of Service: 02/29/2024 Subjective Principal diagnosis: Non-ST elevation [place] Interval history: Ms. Radford is a 58 year old female seen in interventional cardiology consultation at request ofhospitalist and Dr. Tadeo for further interventional assessment and management of 58-year-old female who presented to outside hospital with bronchitis/cough symptomatology. At outside facility, s hehad nonspecific ST changes, and initially elevated troponin at 34,000 that further jorge to 38,000; I discussed case with ER attending Dr. Corrigan, and transferred her to [facility] for further evaluation and management. After arrival here she is asymptomatic, placed on IV heparin, ECGs then began toevolve with inferolateral T wave inversions, troponin came down to 8100 then further to 7700. Last night she had recurrent chest discomfort and troponin bumped up to 11,000; with ECG evolutionary changes. This morning after discussion with Dr. Tadeo, and reviewing echocardiography, it appears she has a stuttering, late presenting, inferolateral ST elevation injury current. Patient is an active smoker; no previous history of myocardial infarction or revascularization or stroke. Think she has a family history of precocious coronary disease as reviewed Plan at this time is discussed with Dr. Tadeo's proceed with early invasivemanagement for latepresenting, initially [id number] [place] with stuttering STelevation injury current developing this morning. Interim evaluation 02/29/2024: Patient is stable, without chest discomfort or shortness of breath orangina, heart failure or arrhythmia. ECG with sinus rhythm with persistent inferolateral ST T wave abnormality. Troponins not back as of this morning. Right radial access site with 3+ pulse and no hematoma. She is otherwise doing well status post primary PCI obtuse marginal branch, withchronic total occlusion distal circumflex?PDA branch. Patient will continue with DAPT x 1 year, high intensity statin, beta-jayne, low-dose lisinopril,follow-up with transitional care cardiology visit in 2 weeks, cardiac rehab and smoking cessation counseling x 10 minutes performed, discharge planning and medication review x 10 minutes performed, review of anatomy and education with patient and son x 10 minutes. Exam Physical Exam Vital Signs: Temp Pulse Resp BP Pulse Ox O2 Del Method O2 Flow Rate 98.0 F 69 18 97/55 L 96 Room Air 1 02/29/24 08:00 02/29/24 11:04 02/29/24 11:04 02/29/24 11:04 02/29/24 11:04 02/29/24 11:04 02/28/24 14:15 Const General: cooperative, healthy appearing, comfortable, no acute distress and welldeveloped Nutritional Appearance: average body habitus Orientation: alert, awake and oriented x3 HEENT Head: normal to inspection Neck Neck: normal visual inspection Chest Chest palpation & inspection: normal inspection of the chest Resp Effort & Inspection: normal respiratory effort Auscultation: clear to auscultation bilaterally Cardio Palpation: normal PMI Rate: regular rate Rhythm: regular rhythm Heart Sounds: S1 normal, S2 normal and no murmurs Pulses: radial pulses present and femoral pulses present GI Palpation: soft Skin General: no rashes or lesions noted Neuro General: patient alert, patient awake and patient oriented x3 Cognition: normal cognition Speech: speech normal Extrem General: no clubbing, cyanosis or edema Objective Labs 02/29/24 03:59 02/29/24 03:59 Labs: Laboratory Results - last 24 hr 02/29/24 03:59 Corrected WBC 13.5 H Uncorrected WBC Count 13.5 H RBC 4.09 Hgb 12.7 Hct 38.3 MCV 93.6 MCH 31.0 MCHC 33.1 RDW 13.2 Plt Count 317 MPV 8.1 Neut % (Auto) 67.7 Lymph % (Auto) 20.5 [place] % (Auto) 10.1 Eos % (Auto) 0.9 Baso % (Auto) 0.8 Nucleat RBC Rel Count 0.0 Neut # (Auto) 9.2 H Lymph # (Auto) 2.8 [place] # (Auto) 1.4 H Eos # (Auto) 0.1 Baso # (Auto) 0.1 PHA Creatinine Clear 108.42 Sodium 141 Potassium 3.8 Chloride 108 H Carbon Dioxide 23.6 Anion Gap 13.2 BUN 12 Creatinine 0.49 L Est GFR (CKD-EPI) > 60.0 Glucose 106 H Calcium 8.9 A&P - Cardiology (1) ACS (acute coronary syndrome): Code(s): I24.9 - Acute ischemic heart disease, unspecified (2) Non-ST elevation myocardial infarction (NSTEMI), initial care episode: Code(s): I21.4 - Non-ST elevation (NSTEMI) myocardial infarction (3) Tobacco abuse: Code(s): Z72.0 - Tobacco use Plan Proceed with early invasive coronary evaluation. Documented By: Kierra Mendiola DO 02/29/24 1552 Signed By: 02/29/24 1555 [facility]01-13-2025 Hospital Discharge instructions Additional Instructions DISCHARGE INSTRUCTIONS FOR ANGIOPLASTY/CORONARY/PERIPHERAL/STENT IMPLANT FOR ADULT ANTICOAGULATION -Since the greatest risk of a blood clot forming with the stent occurs in the first 2-3 weeks after implantation, you will need to take anticoagulants for at least 12-18 months. ANTICOAGULATION MEDICATION Aspirin 81mg once a day, Ticagrelor (Brilinta) 90mg twice a day STATIN MEDICATION Atorvastatin (Lipitor) 80 mg Drug-Eluting Stent (JASMYNE) DO NOT discontinue Brilinta/Aspirin during the first few months regardless of what you are advised by your family doctor or pharmacist, without first calling the architectural drafting instructor who implanted the stent. If you require pain relief during this time, please take only ACETAMINOPHEN (TYLENOL)- NO additional aspirin or ibuprofen. DISCHARGE ACTIVITIES ARE FOLLOWS: First week after discharge: -Take it easy at home, no strenuous activity. -Do not lift or pull objects over 10-15 pounds, including children, and groceries for four weeks. If puncture site is at wrist do NOT lift more than three pounds for three days. - May walk up stairs. -May shower. -No excessive scrubbing of the affected site (groin). -May ride in car. -May resume sexual intercourse after 1-2 weeks. -No MRI for 12 days. -May drive in 4-7 days. -If puncture site is at the wrist do not manipulate the wrist for 24 hours, and no soaking wrist for three days. Second Week: -May take a bath -May start walking 3 times a week for 15-20 minutes at a leisurely pace. You should be able to carry on a conversation comfortably without feeling winded. -No strenuous activity as in jogging, running, weight lifting, stair steppers, etc. until the architectural drafting instructor approves these activities. Check with the architectural drafting instructor on your first follow-up visit. CALL YOUR DESIGN EDITOR: -If bleeding should occur from the catheter insertion site- apply pressure to the site then immediately call us. -Report any fever, redness, drainage, increased swelling, or firmness at the catheter insertion site. Some bruising or slight swelling may be present at the time of discharge. -Should arm or leg become cold, numb, white, or blue, contact the architectural drafting instructor immediately. -IF you should experience episodes of angina, e.g. chest discomfort, heaviness, tightness, pressure burning with or without radiation to the neck, jaw, arms or back- use 1 Nitrostat tablet under your tongue every 5-10 minutes and up to three tablets. IF NO RELIEF, CALL 911 or GO TO THE NEAREST EMERGENCY ROOM. -Please notify our office if you have recurrent angina. -Cardiac Rehab Education Provided. Participation in the Cardiopulmonary Rehabilitation program is recommended. The attending architectural drafting instructor or a nurse clinician should provide you with specific instructions regarding activity, diet, medications, and further follow up for you. Follow the medication instructions provided on your discharge. If the dosages and instructions on this sheet differ from the dosage and instructions on the bottle, follow the instructions on the bottle. [facility] is not responsible for incorrect prescription information provided by the patient during their visit. Do not stop your medications without consulting your health care provider. Please take the list with you to your next doctor's appointment.[facility] Work Phone: 1(683) 314-809501-12-2025 Progress note Author Madison Munson [facility] Note Date/Time February 28, 2024 4 :08pm [facility] [address] [place] [address] Hospitalist Progress Note Signed Patient: Angela Radford MR#: [id number] : 1965 Acct:[id number] Age/Sex: 58 / F Adm Date: 5 Loc: Room: [address] [place] [address] Type: ADM IN Attending Dr: Madison Munson MD Copies to: ~ Date of Service: 02/28/2024 Subjective Subjective Narrative: Patient has been seen and examined today. She denies any complaints. Her respiratory symptoms such as jaw pain, cough, shortness of breath resolved. Patient was taken for cardiac catheterization on February 27 with intervention Primary PCI OM 2 branch with 2.5 x 26 mm [place] Physical exam: General -awake, alert, oriented ?3, not in acute distress Cardiovascular -S1 with S2, no murmurs, no rubs, no gallops Pulmonary - clear to auscultation bilaterally Gastrointestinal - abdomen is soft, nondistended, nontender, bowel sounds positive, there is no rigidity, no rebound Extremities -no edema Neurological -no focal neurological dysfunction noted Laboratory work up and Imaging studies reviewed tube coremaker - reviewed EKG - personally reviewed by me. NSR with nonspecific changes Exam Physical Exam Vital Signs: Temp Pulse Resp BP Pulse Ox O2 Del Method O2 Flow Rate 36.8 C 68 16 106/62 96 Nasal Cannula 1 02/28/24 13:45 02/28/24 14:00 02/28/24 14:00 02/28/24 14:00 02/28/24 14:00 02/28/24 14:00 02/28/24 14:00 Objective Lab Results 02/28/24 04:23 02/28/24 04:23 Meds Allergies and Active Meds Allergies methylprednisolone (Medrol) Allergy (Unknown, Verified 12/03/23 10:33) Hives promethazine (Phenergan) Allergy (Unknown, Verified 12/03/23 10:33) Hives Active Meds: Active Medications Generic Name Dose Route Start Last Admin Trade Name Freq PRN Reason Stop Dose Admin Acetaminophen 650 mg 02/26/24 15:45 Acetaminophen 325 Mg Tablet PO 02/25/25 15:44 Q4H PRN Pain Scale 1 - 5 Albuterol 2.5 mg 02/26/24 15:45 Albuterol Neb 2.5 Mg/3 Ml Vial.Neb INHALATION 02/25/25 15:44 Q2H PRN Shortness Of Breath Aspirin 81 mg 02/29/24 09:00 Aspirin 81 Mg Tab.Chew PO 02/28/25 08:59 DAILY [facility] Atorvastatin Calcium 80 mg 02/28/24 21:00 Atorvastatin 80 Mg Tablet PO 02/27/25 20:59 QPM [facility] Atropine Sulfate 1 mg 02/28/24 13:14 Atropine Sulfate 1 Mg/10 Ml Syringe IV-PUSH ONCE PRN Symptomatic Bradycardia Docusate Sodium 200 mg 02/26/24 15:45 Docusate 100 Mg Capsule PO 02/25/25 15:44 BID PRN Constipation Heparin Sodium (Porcine) 1,700 unit 02/26/24 17:01 Heparin *Protocol Bolus* 5,000 Unit/Ml Vial 25 unit/kg (1700 unit) 02/25/25 17:00 IV-PUSH PROTOCOL PRN Anti-Xa < 0.1 or aPTT < 40 Hydralazine HCl 10 mg 02/26/24 15:45 Hydralazine 20 Mg/Ml Vial IV-PUSH 02/25/25 15:44 Q4H PRN if SBP > 185 Heparin Sodium/Sodium Chloride 25,000 unit in 250 mls @ 8.1 mls/hr 02/26/24 15:45 02/27/24 20:35 Heparin IV 02/25/25 15:44 16 unit/kg/hr .Q24H CHELSEA 10.8 mls/hr Administration Protocol 12 UNIT/KG/HR Dextrose/Sodium Chloride 1,000 mls @ 20 mls/hr 02/28/24 11:30 02/28/24 11:55 5 % Dextrose-0.45 % Nacl IV 02/27/25 11:29 20 mls/hr .Q24H CHELSEA Administration Sodium Chloride 250 mls @ 999 mls/hr 02/28/24 13:14 0.9% Sodium Chloride 250 Ml IV 02/27/25 13:13 PRN PRN Hypotension Bivalirudin 250 mg in 50 mls @ 23.555 mls/hr 02/28/24 13:15 Angiomax IV 02/28/24 15:22 .Q2H8M CHELSEA 1.75 MG/KG/HR Lidocaine HCl 10 ml 02/28/24 13:14 Lidocaine 2% Mdv 50 Ml Vial SUBCUT 02/29/24 01:14 ONCE PRN Sheath Removal Lisinopril 2.5 mg 02/29/24 09:00 Lisinopril 2.5 Mg Tablet PO 02/28/25 08:59 DAILY C[facility]SEA Meperidine HCl 25 mg 02/28/24 13:14 Meperidine Pf 25 Mg/Ml Vial IV-PUSH 02/29/24 01:14 ONCE PRN Sheath Removal Metoprolol Tartrate 25 mg 02/28/24 21:00 Metoprolol Tartrate 25 Mg Tablet PO 02/27/25 20:59 BID [facility] Miscellaneous Information 1 each 02/26/24 15:45 Consult To Pharmacy MISCELLANE 02/25/25 15:44 .PHACONSULT PRN ZZ.Pharmacy Consult Protocol Morphine Sulfate 1 mg 02/27/24 21:31 02/27/24 21:39 Morphine Sulfate 2 Mg/Ml Vial IV-PUSH 1 mg Q2H PRN Administration chest pain Nitroglycerin 1 inch 02/26/24 16:20 02/28/24 08:44 Nitroglycerin 2% Oint Packet TRANSDERML 02/25/25 16:19 1 inch BID CHELSEA Administration Pantoprazole Sodium 40 mg 02/27/24 13:35 02/28/24 08:42 Pantoprazole 40 Mg Tablet. PO 02/26/25 13:34 40 mg DAILY CHELSEA Administration Promethazine HCl 12.5 mg 02/28/24 13:14 Promethazine 25 Mg/Ml Vial IM 02/29/24 01:14 ONCE PRN Sheath Removal Ticagrelor 90 mg 02/28/24 21:00 Ticagrelor 60 Mg Tablet PO 02/27/25 20:59 BID CHELSEA Tizanidine HCl 2 mg 02/26/24 17:11 Tizanidine 4 Mg Tablet PO 02/25/25 17:10 Q8HR PRN muscle spasticity Valacyclovir HCl 2,000 mg 02/26/24 21:00 Valacyclovir 500 Mg Tablet PO 02/25/25 20:59 BID PRN OUTBREAKS A&P - Hospitalist Assessment/Plan (1) ACS (acute coronary syndrome): Plan 1. Non-ST elevation AZ, status post Primary PCI OM 2 branch with 2.5 x 26 mm [place] Continue with dual antiplatelets, beta-blockers and EVELYN, statin therapy Echocardiogram preserved ejection fraction with LV wall motion abnormalities 2. Epigastric discomfort, lasting for years, patient has been taking frequent this months, denies any signs of black stools bloody stools, no EGD in the past,at this point I will continue with PPIs empirically if patient has persistent epigastric discomfort I did recommend to follow-up with gastroenterology We will continue empirically with Protonix 3. Leukocytosis, suspect reactive, otherwise hemodynamically stable Proving, remains afebrile no respiratory symptoms noted Respiratory symptoms resolved, I do not appreciate any other focal signs of infection Recheck in a.m. Documented By: Madison Munson MD 02/28/24 1453 Signed By: <Electronically signed by Madison Munson MD> 02/28/24 1600 [facility] Work Phone: 1(596) 905-847901-12-20[place] [address] Hospitalist Progress Note Signed Patient: Angela Radford MR#: [id number] : 1965 Acct:[id number] Age/Sex: 58 / F Adm Date: 5 Loc: Room: [address] [place] [address] Type: ADM IN Attending Dr: Madison Munson MD Copies to: ~ Date of Service: 02/28/2024 Subjective Subjective Narrative: Patient has been seen and examined today. She denies any complaints. Her respiratory symptoms such as jaw pain, cough, shortness of breath resolved. Patient was taken for cardiac catheterization on February 27 with intervention Primary PCI OM 2 branch with 2.5 x 26 mm [place]ackary Physical exam: General -awake, alert, oriented ?3, not in acute distress Cardiovascular -S1 with S2, no murmurs, no rubs, no gallops Pulmonary - clear to auscultation bilaterally Gastrointestinal - abdomen is soft, nondistended, nontender, bowel sounds positive, there is no rigidity, no rebound Extremities -no edema Neurological -no focal neurological dysfunction noted Laboratory work up and Imaging studies reviewed tube coremaker - reviewed EKG - personally reviewed by me. NSR with nonspecific changes Exam Physical Exam Vital Signs: Temp Pulse Resp BP Pulse Ox O2 Del Method O2 Flow Rate 36.8 C 68 16 106/62 96 Nasal Cannula 1 02/28/24 13:45 02/28/24 14:00 02/28/24 14:00 02/28/24 14:00 02/28/24 14:00 02/28/24 14:00 02/28/24 14:00 Objective Lab Results 02/28/24 04:23 02/28/24 04:23 Meds Allergies and Active Meds Allergies methylprednisolone (Medrol) Allergy (Unknown, Verified 12/03/23 10:33) Hives promethazine (Phenergan) Allergy (Unknown, Verified 12/03/23 10:33) Hives Active Meds: Active Medications Generic Name Dose Route Start Last Admin Trade Name Freq PRN Reason Stop Dose Admin Acetaminophen 650 mg 02/26/24 15:45 Acetaminophen 325 Mg Tablet PO 02/25/25 15:44 Q4H PRN Pain Scale 1 - 5 Albuterol 2.5 mg 02/26/24 15:45 Albuterol Neb 2.5 Mg/3 Ml Vial.Neb INHALATION 02/25/25 15:44 Q2H PRN Shortness Of Breath Aspirin 81 mg 02/29/24 09:00 Aspirin 81 Mg Tab.Chew PO 02/28/25 08:59 DAILY [facility] Atorvastatin Calcium 80 mg 02/28/24 21:00 Atorvastatin 80 Mg Tablet PO 02/27/25 20:59 QPM [facility] Atropine Sulfate 1 mg 02/28/24 13:14 Atropine Sulfate 1 Mg/10 Ml Syringe IV-PUSH ONCE PRN Symptomatic Bradycardia Docusate Sodium 200 mg 02/26/24 15:45 Docusate 100 Mg Capsule PO 02/25/25 15:44 BID PRN Constipation Heparin Sodium (Porcine) 1,700 unit 02/26/24 17:01 Heparin *Protocol Bolus* 5,000 Unit/Ml Vial 25 unit/kg (1700 unit) 02/25/25 17:00 IV-PUSH PROTOCOL PRN Anti-Xa < 0.1 or aPTT < 40 Hydralazine HCl 10 mg 02/26/24 15:45 Hydralazine 20 Mg/Ml Vial IV-PUSH 02/25/25 15:44 Q4H PRN if SBP > 185 Heparin Sodium/Sodium Chloride 25,000 unit in 250 mls @ 8.1 mls/hr 02/26/24 15:45 02/27/24 20:35 Heparin IV 02/25/25 15:44 16 unit/kg/hr .Q24H CHELSEA 10.8 mls/hr Administration Protocol 12 UNIT/KG/HR Dextrose/Sodium Chloride 1,000 mls @ 20 mls/hr 02/28/24 11:30 02/28/24 11:55 5 % Dextrose-0.45 % Nacl IV 02/27/25 11:29 20 mls/hr .Q24H CHELSEA Administration Sodium Chloride 250 mls @ 999 mls/hr 02/28/24 13:14 0.9% Sodium Chloride 250 Ml IV 02/27/25 13:13 PRN PRN Hypotension Bivalirudin 250 mg in 50 mls @ 23.555 mls/hr 02/28/24 13:15 Angiomax IV 02/28/24 15:22 .Q2H8M CHELSEA 1.75 MG/KG/HR Lidocaine HCl 10 ml 02/28/24 13:14 Lidocaine 2% Mdv 50 Ml Vial SUBCUT 02/29/24 01:14 ONCE PRN Sheath Removal Lisinopril 2.5 mg 02/29/24 09:00 Lisinopril 2.5 Mg Tablet PO 02/28/25 08:59 DAILY [facility] Meperidine HCl 25 mg 02/28/24 13:14 Meperidine Pf 25 Mg/Ml Vial IV-PUSH 02/29/24 01:14 ONCE PRN Sheath Removal Metoprolol Tartrate 25 mg 02/28/24 21:00 Metoprolol Tartrate 25 Mg Tablet PO 02/27/25 20:59 BID [facility] Miscellaneous Information 1 each 02/26/24 15:45 Consult To Pharmacy MISCELLANE 02/25/25 15:44 .PHACONSULT PRN ZZ.Pharmacy Consult Protocol Morphine Sulfate 1 mg 02/27/24 21:31 02/27/24 21:39 Morphine Sulfate 2 Mg/Ml Vial IV-PUSH 1 mg Q2H PRN Administration chest pain Nitroglycerin 1 inch 02/26/24 16:20 02/28/24 08:44 Nitroglycerin 2% Oint Packet TRANSDERML 02/25/25 16:19 1 inch BID CHELSEA Administration Pantoprazole Sodium 40 mg 02/27/24 13:35 02/28/24 08:42 Pantoprazole 40 Mg Tablet. PO 02/26/25 13:34 40 mg DAILY CHELSEA Administration Promethazine HCl 12.5 mg 02/28/24 13:14 Promethazine 25 Mg/Ml Vial IM 02/29/24 01:14 ONCE PRN Sheath Removal Ticagrelor 90 mg 02/28/24 21:00 Ticagrelor 60 Mg Tablet PO 02/27/25 20:59 BID CHELSEA Tizanidine HCl 2 mg 02/26/24 17:11 Tizanidine 4 Mg Tablet PO 02/25/25 17:10 Q8HR PRN muscle spasticity Valacyclovir HCl 2,000 mg 02/26/24 21:00 Valacyclovir 500 Mg Tablet PO 02/25/25 20:59 BID PRN OUTBREAKS A&P - Hospitalist Assessment/Plan (1) ACS (acute coronary syndrome): Plan 1. Non-ST elevation [place], status post Primary PCI OM 2 branch with 2.5 x 26 mm [place] Continue with dual antiplatelets, beta-blockers and EVELYN, statin therapy Echocardiogram preserved ejection fraction with LV wall motion abnormalities 2. Epigastric discomfort, lasting for years, patient has been taking frequent this months, denies any signs of black stools bloody stools, no EGD in the past,at this point I will continue with PPIs empirically if patient has persistent epigastric discomfort I did recommend to follow-up with gastroen terology We will continue empirically with Protonix 3. Leukocytosis, suspect reactive, otherwise hemodynamically stable Proving, remains afebrile no respiratory symptoms noted Respiratory symptoms resolved, I do not appreciate any other focal signs of infection Recheck in a.m. Documented By: Madison Munson MD 02/28/24 1453 Signed By: 02/28/24 1608 [facility]01-12-2025 Consult note Author Kierra Mendiola [facility] Note Date/Time February 28, 2024 1 2:33pm [facility] [address] [place] [address] Cardiology Consult Note Signed Patient: Angela Radford MR#: [id number] : 1965 Acct:[id number] Age/Sex: 58 / F Adm Date: 5 Loc: Room: [address] [place] [address] Type: ADM IN Attending Dr: Madison Munson MD Copies to: MD Madison Carey MD W Scott Sheldon, DO~ Cardiology HPI History of Present Illness Consult Date: 02/28/24 Reason for Consult: Inferolateral non-ST elevation AZ, evolving to ST elevation AZ HPI: Ms. Radford is a 58 year old female seen in interventional cardiology consultation at request of hospitalist and Dr. Tadeo for further interventional assessment and management of 58-year-old female who presented to outside hospital with bronchitis/cough symptomatology. At outside facility, shehad nonspecific ST changes, and initially elevated troponin at 34,000 that further jorge to 38,000; I discussed case with ER attending Dr. Corrigan, and transferred her to [facility] for further evaluation and management. After arrival here she is asymptomatic, placed on IV heparin, ECGs then began toevolve with inferolateral T wave inversions, troponin came down to 8100 then further to 7700. Last night she had recurrent chest discomfort and troponin bumped up to 11,000; with ECG evolutionary changes. This morning after discussion with Dr. Tadeo, and reviewing echocardiography, it appears she has a stuttering, late presenting, inferolateral ST elevation injury current. Patient is an active smoker; no previous history of myocardial infarction or revascularization or stroke. Think she has a family history of precocious coronary disease as reviewed Plan at this time is discussed with Dr. Tadeo's proceed with early invasivemanagement for late presenting, initially eio-KW-giybxiybb [place] with stuttering STelevation injury current developing this morning. [facility] Medical History Cystocele, unspecified Anxiety Acute recurrent maxillary sinusitis (01/20/18) Acute bronchitis, unspecified Surgical History History of appendectomy Family History Father Hypertension Social History Smoking Status: Current every day smoker Tobacco Type: cigarettes Substance Use Type: None Meds Medications and Allergies Allergies methylprednisolone (Medrol) Allergy (Unknown, Verified 12/03/23 10:33) Hives promethazine (Phenergan) Allergy (Unknown, Verified 12/03/23 10:33) Hives Home Medications valacyclovir 1 gram tablet 2,000 mg (2 x 1 gram) PO BID #4 tabs 10/28/23 [Rx Confirmed 02/26/24] tizanidine 2 mg tablet 2 mg PO Q8HR PRN muscle spasticity #30 tabs 12/03/23 [Rx Confirmed 02/26/24] ascorbic acid (vitamin C) 500 mg tablet (Vitamin C) 500 mg PO DAILY 02/26/24 [History Confirmed 02/26/24] cholecalciferol (vitamin D3) 125 mcg (5,000 unit) tablet (Vitamin D3) 5,000 unitPO DAILY 02/26/24 [History Confirmed 02/26/24] Exam Physical Exam Vital Signs: Temp Pulse Resp BP Pulse Ox O2 Del Method 98.2 F 68 18 116/78 95 Room Air 02/28/24 08:00 02/28/24 08:44 02/28/24 08:00 02/28/24 08:44 02/28/24 08:00 02/28/24 08:00 Const General: cooperative, healthy appearing, comfortable, no acute distress and welldeveloped Nutritional Appearance: average body habitus Orientation: alert, awake and oriented x3 HEENT Head: normal to inspection Neck Neck: normal visual inspection Chest Chest palpation & inspection: normal inspection of the chest Resp Effort & Inspection: normal respiratory effort Auscultation: clear to auscultation bilaterally Cardio Palpation: normal PMI Rate: regular rate Rhythm: regular rhythm Heart Sounds: S1 normal, S2 normal and no murmurs Pulses: radial pulses present and femoral pulses present GI Palpation: soft Skin General: no rashes or lesions noted Neuro General: patient alert, patient awake and patient oriented x3 Cognition: normal cognition Speech: speech normal Extrem General: no clubbing, cyanosis or edema Results - Cardiology Labs 02/28/24 04:23 02/28/24 04:23 Lab results: Cardiac Enzymes 02/27/24 Range/Units 16:22 B-Natriuretic Peptide 378.0 H (5-100) pg/mL CBC 02/28/24 Range/Units 04:23 RBC 3.82 (3.60-5.00) x10E6/uL Hgb 12.1 (11.8-15.4) g/dL Hct 36.0 (34.0-46.4) % Plt Count 282 (150-450) x10E3/uL Neut # (Auto) 11.1 H (1.8-7.7) x10E3/uL Lymph # (Auto) 3.8 (1.00-4.8) x10E3/uL [place] # (Auto) 1.3 H (0.0-0.8) x10E3/uL Eos # (Auto) 0.1 (0.0-0.45) x10E3/uL Baso # (Auto) 0.1 (0.0-0.2) x10E3/uL Comprehensive Metabolic Panel 02/28/24 Range/Units 04:23 Sodium 139 (136-145) mmol/L Potassium 4.5 (3.5-5.1) mmol/L Chloride 108 H (98-107) mmol/L Carbon Dioxide 25.4 (21.0-31.0) mmol/L BUN 17 (7-25) mg/dL Creatinine 0.54 L (0.60-1.20) mg/dL Glucose 95 (70-100) mg/dL Calcium 8.5 L (8.6-10.3) mg/dL Intake and Output 02/27/24 02/28/24 02/28/24 23:59 07:59 15:59 Intake Total 1050 / 1350 600 / 600 Balance 1050 / 1350 600 / 600 Intake: IV 250 / 250 Heparin 25,000Unit-*0.45 NaCl* 250 / 250 25,000 unit In 250 ml @ 12 UNIT /KG/HR 8.1 mls/hr IV .Q24H [facility] Rx#:[id number] Oral 800 / 1100 600 / 600 Other: # Unmeasured Voids 3 2 # Bowel Movements 1 Weight 67.3 kg Date of Last Bowel Movement 02/28/24 Patient Weight 02/28/24 23:59 Weight 67.3 kg EKG Interpretations EKG EKG results cardiology: sinus rhythm Blocks, axis, hypertrophy, ST abn Repolarization changes or abnormalities: ST or T wave suggestive of ischemia A&P - Cardiology (1) ACS (acute coronary syndrome): Code(s): I24.9 - Acute ischemic heart disease, unspecified (2) Non-ST elevation myocardial infarction (NSTEMI), initial care episode: Code(s): I21.4 - Non-ST elevation (NSTEMI) myocardial infarction (3) Tobacco abuse: Code(s): Z72.0 - Tobacco use Plan Proceed with early invasive coronary evaluation. Documented By: Kierra Mendiola DO 02/28/24 1227 Signed By: <Electronically signed by Kierra Mendiola DO> 02/28/24 [facility] Work Phone: 1(891) 331-375701-12-2025 [place] [address] Cardiac Catheterization Note Signed Patient: Angela Radford MR#: [id number] : 1965 Acct:[id number] Age/Sex: 58 / F Adm Date: 5 Loc: Room: [address] [place] [address] Type: ADM IN Attending Dr: Madison Munson MD Copies to: MD Madison Carey MD W Scott Sheldon, DO~ Cardiac Catheterization (Left) DATE/PROVIDER 02/28/2024 Kierra Mendiola DO INDICATION 1. Late presenting non-ST elevation [place], evolving into inferolateral STEMI this morning 2. Tobacco abuse 3. Family history of precocious coronary disease PRE PROCEDURE Cardiology Pre-Op Diagnosis: NSTEMI Frailty Scale: Managing Well ASA Classification: 5 Mallampati Score: Class I POST PROCEDURE Cardiology Post-Op Diagnosis: NSTEMI (Total occlusion distal circumflex-PDA; subtotal occlusion OM 2 branch; total occlusion nondominant RCA, mild LV dysfunction) PROCEDURE PROCEDURE MEDICATIONS: Conscious sedation Versed, fentanyl; heparin 4000 unit bolus, Angiomax bolus andinfusion, intra-arterial nicardipine Approach: Radial - Rt 1. Left heart catheterization 2. Selective left coronary angiography with interpretation 3. Primary PCI OM 2 branch with 2.5 x 26 mm Zackary 4. Attempted PTCA distal circumflex?PDA PROCEDURE DETAILS Utilizing the right radial approach with a single arterial puncture technique, a5 Peruvian slender sheath was introduced to the right radial artery over guidewirewithout any complications. Next, preformed 6 Peruvian Peruvian JL 3.5 guide catheter and 5 Peruvian JR4 diagnostic catheter were utilized to selectively engage and image the left and right coronary arteries and left ventricle, all with interpretation, pressure measurements, coronary and left ventriculography. 6 Peruvian JL 3.5 guide catheter was advanced to left coronary, selective left coronary angiography with interpretation followed by PCI OM 2 branch with 2.5 x 26 mm Waskom stent and attempted wiring of distal circumflex?PDA with 1.5 mm sprinter balloon (unable to cross) HEMOSTASIS Matthew wristband SUMMARY OF FINDINGS CCS Classification: CCS CF-XOL-cydeas at rest or w/ any activity Dominance: Left Left Main %: 0 LAD-Prox % Stenosis: 0 LAD- Mid- % Stenosis: 10 LAD-Distal- % Stenosis: 10 Diag 1st - % Stenosis: 0 Ramus - & Stenosis: 10 Ramus: Moderate-sized bifurcating ramus branch with 2 medial and lateral limbs with minimal disease CIRC- Prox % Stenosis: 20 CIRC- Prox: Ostial?proximal circumflex with mild 10% luminal irregularities CIRC- Mid - % Stenosis: 20 CIRC-Mid: Eccentric plaque on the order 20%, nonobstructive, in between the first and second marginal branches CIRC- Distal- & Stenosis: 100 CIRC- Distal: Distal circumflex going into the PDA branch totally occluded for 40 mm with TIMI0 flow OM-1 -% Stenosis: 10 OM-2 -% Stenosis: 95 OM-2: Tubular 95% disease to the proximal third, infarct vessel with CARLOS-3 flow PDA-LT -% Stenosis: 100 RCA -% Stenosis: 100 RCA: Very small, nondominant RCA with 100% mid vessel occlusion with right to right antegrade bridging collaterals with CARLOS-3 flow LEFT VENTRICLE EF %: 50 Inferobasilar severe hypokinesis the remainder of the ventricle contracts normally, ejection fraction 50%, elevated LVEDP of 20 to 24 mmHg VALVE-AORTIC Aortic Valve Disease: No VALVE-MITRAL Mitral Valve Disease: No IMPRESSION 1. Severe two-vessel ASHD with chronic occlusion versus thrombotic occlusion distal circumflex and OM 2 and chronic occlusion nondominant RCA 2. Mild LV dysfunction RECOMMENDATIONS PCI OM 2 in attempt distal circumflex Documented By: Kierra Mendiola DO 02/28/24 1345 Signed By: 02/28/24 1352 [facility]01-12-2025 Progress note Author Monique Tadeo [facility] Note Date/Time February 28, 2024 1 1:29am [facility] [address] [place] [address] Cardiology Progress Note Signed Patient: Angela Radford MR#: [id number] : 1965 Acct:[id number] Age/Sex: 58 / F Adm Date: 5 Loc: Room: [address] [place] [address] Type: ADM IN Attending Dr: Madison Munson MD Copies to: ~ Date of Service: 02/28/2024 Subjective Interval history: Patient had brief episode of chest pain with some EKG changes yesterday. Dr. Munsno discussed the case Dr. Mendiola who recommended to continue medical therapy. A loading dose of Brilinta was given. Patient denies any fever or pain. White blood count down to 16,000 but there is still some bandemia. Cardiac exam showed dramatic jump in EKG demonstrated evolving inferolateral wall myocardial infarction Exam Physical Exam Vital Signs: Temp Pulse Resp BP Pulse Ox O2 Del Method 98.2 F 68 18 116/78 95 Room Air 02/28/24 08:00 02/28/24 08:44 02/28/24 08:00 02/28/24 08:44 02/28/24 08:00 02/28/24 08:00 Eyes General: appearance normal, both eyes and all related structures Pupils: PERRL Neck Neck: normal visual inspection, supple and no lymphadenopathy noted Neck mass: No Thyroid: thyroid normal Carotids: normal carotid upstroke Chest Chest palpation & inspection: normal inspection of the chest Resp Effort & Inspection: normal respiratory effort Auscultation: clear to auscultation bilaterally Cardio Palpation: normal PMI Rate: regular rate Rhythm: regular rhythm Heart Sounds: S1 normal and S2 normal GI Palpation: soft and no hepatosplenomegaly Percussion: normal to percussion Auscultation: normal bowel sounds Skin General: no rashes or lesions noted and dry skin Neuro General: patient alert, patient awake, patient oriented x3, tone normal and moves all extremities Objective Labs 02/28/24 04:23 02/28/24 04:23 Labs: Laboratory Results - last 24 hr 02/27/24 02/27/24 02/27/24 14:57 16:22 18:00 Corrected WBC Uncorrected WBC Count RBC Hgb Hct MCV MCH MCHC RDW Plt Count MPV Neut % (Auto) Lymph % (Auto) [place] % (Auto) Eos % (Auto) Baso % (Auto) Nucleat RBC Rel Count Neut # (Auto) Lymph # (Auto) [place] # (Auto) Eos # (Auto) Baso # (Auto) Heparin Anti-Xa, Unfract 0.33 PHA Creatinine Clear Sodium Potassium Chloride Carbon Dioxide Anion Gap BUN Creatinine Est GFR (CKD-EPI) Glucose Calcium Troponin I High Sens 7715.4 H* B-Natriuretic Peptide 378.0 H Urine Color Light-yellow Urine Appearance Clear Urine pH 6.0 Ur Specific [place] 1.027 Urine Protein Negative Urine Glucose (UA) Normal Urine Ketones Negative Urine Occult Blood Negative Urine Nitrite Negative Urine Bilirubin Negative Urine Urobilinogen Normal Ur Leukocyte Esterase Negative 02/27/24 02/28/24 21:03 04:23 Corrected WBC 16.4 H Uncorrected WBC Count 16.4 H RBC 3.82 Hgb 12.1 Hct 36.0 MCV 94.3 MCH 31.7 MCHC 33.6 RDW 13.2 Plt Count 282 MPV 8.1 Neut % (Auto) 67.8 Lymph % (Auto) 23.0 [place] % (Auto) 7.9 Eos % (Auto) 0.8 Baso % (Auto) 0.5 Nucleat RBC Rel Count 0.0 Neut # (Auto) 11.1 H Lymph # (Auto) 3.8 [place] # (Auto) 1.3 H Eos # (Auto) 0.1 Baso # (Auto) 0.1 Heparin Anti-Xa, Unfract 0.30 0.30 PHA Creatinine Clear 98.60 Sodium 139 Potassium 4.5 Chloride 108 H Carbon Dioxide 25.4 Anion Gap 10.1 BUN 17 Creatinine 0.54 L Est GFR (CKD-EPI) > 60.0 Glucose 95 Calcium 8.5 L Troponin I High Sens 71137.0 H* B-Natriuretic Peptide Urine Color Urine Appearance Urine pH Ur Specific [place] Urine Protein Urine Glucose (UA) Urine Ketones Urine Occult Blood Urine Nitrite Urine Bilirubin Urine Urobilinogen Ur Leukocyte Esterase A&P - Cardiology (1) ACS (acute coronary syndrome): Code(s): I24.9 - Acute ischemic heart disease, unspecified Plan Assessment 1. Late presentation with acute inferolateral wall myocardial infarction. TIMIscore of 4. Patient had an episode of chest pain last night with some subtle STsegment elevation in the inferolateral leads. Cardiac enzyme on the rise again. Was given yesterday a loading dose of Brilinta 2. Tobacco use 3. Strong family history of coronary artery disease 4. Mild resting sinus bradycardia with heart rate 55 5. Leukocytosis and bandemia without clear signs of focal infection. Patient reports some minor wisdom tooth pain Plan 1. Standard therapy for acute coronary syndrome including aspirin, heparin topical nitrates and a statin therapy. Will add low-dose beta-jayne 2. I reviewed the case with the patient and discussed the case with Dr. Mendiola. Will agree with to proceed with early invasive evaluation. Risk, benefit alternative reviewed with patient at length she understood and agreed 3. Aggressive coronary risk factor modification with special emphasis on smoking cessation 4. Case reviewed at length with patient, family, hospitalist service and interventional team Documented By: Monique Tadeo MD 02/28/24 1121 Signed By: <Electronically signed by MD Monique Tadeo> 02/28/24 1129 [facility] Work Phone: 1(493) 179-112901-12-2025 [place] [address] Cardiology PCI Note Signed Patient: Angela Radford MR#: [id number] : 1965 Acct:[id number] Age/Sex: 58 / F Adm Date: 5 Loc: Room: [address] [place] [address] Type: ADM IN Attending Dr: Madison Munson MD Copies to: MD Madison Carey MD W Scott Sheldon, ~ Cardiac PCI Note DATE/PROVIDER 02/28/2024 Kierra Mendiola DO INDICATION 1. Late presenting non-ST elevation AZ?evolving inferolateral STEMI 2. Tobacco abuse PRE PROCEDURE Cardiology Pre-Op Diagnosis: NSTEMI Frailty Scale: Managing Well ASA: 5 Mallampati Score: Class I POST PROCEDURE Cardiology Post-Op Diagnosis: NSTEMI (Successful PCI mid circumflex-OM 2 with 2.5 x 26 mm Zackary) FINDINGS 1st vessel: Lesion Vessel Segment: Mid circumflex-OM 2 Culprit Lesion?: Yes Pre-stenosis %: 95 Post stenosis %: 0 Lesion length (mm): 20 Bifurcation lesion?: Yes Pre CARLOS flow: III Post CARLOS flow: III Lesion risk: High Chronic total occlusion?: No Thrombus present?: Yes AUC SCORE: 7 Lesion complication: None Drug Eluting Stent: 2.5 x 26 mm Waskom Narrative: See cardiac catheterization narrative for complete dissertation on left coronaryangiography with interpretation, guide catheter selection, pharmacology, equipment Summary: In the second obtuse marginal branch located at the takeoff of the occluded mid/distal la posta circumflex, there was subtotal 95% occlusion of the OM 2 branch in the proximal third with an overall length of 20 mm preprocedural CARLOS flow of CARLOS III and a reference vessel of 2.4 to 2.5 mm. The ACC/AHA criteria for the lesion is type B2. Utilizing a JL 3.5 guide catheter a 0.014 universal wire is navigated across the lesion and predilated with a 2 x 12 mm Euphora balloon, the balloon was removed, a 2.5 x 26 mm Zackary stent was placed 12atm with residual stenosis of 0% CARLOS-3 flow. There are no complications Mid?distal circumflex see separate report 2nd vessel: Lesion Vessel Segment: Mid-distal circumflex/PDA Culprit Lesion?: Yes Pre-stenosis %: 100 Post stenosis %: 100 Lesion length (mm): 40 Bifurcation lesion?: Yes Pre CARLOS flow: 0 Post CARLOS flow: 0 Chronic total occlusion?: Yes Thrombus present?: Yes AUC SCORE: 8 Lesion complication: None Narrative: In the mid?distal circumflex going into the PDA branch (dominant left coronary system) there was ancomplete occlusion thought to be thrombotic in nature and thought to be the original infarct vessel. The ACC/AHA criteria for the lesion is type C based on length, thrombus. Reference vessel is 3 mm,length was 40 mm, preprocedural CARLOS flow was CARLOS 0. Utilizing the same guide catheter, a new 0.014 universal wire was introduced to the circumflex and parked into the apex of this lesion. Despite several attempts and even with antegrade backup balloonwith a 1.5 mm sprinter, we are unable to get the wire to traverse through the lesion despite several attempts. This is therefore deemed a chronic total occlusion after at least 30 minutes of trying to cross, we therefore aborted the mid/distal circumflex lesion thereafterwards Documented By: Kierra Mendiola DO 02/28/24 1314 Signed By: 02/28/24 1321 [facility]01-12-2025 [place] [address] Cardiology Consult Note Signed Patient: Angela Radford MR#: [id number] : 1965 Acct:[id number] Age/Sex: 58 / F Adm Date: 5 Loc: Room: [address] [place] [address] Type: ADM IN Attending Dr: Madison Munson MD Copies to: MD Madison Carey MD W Scott Sheldon, DO~ Cardiology HPI History of Present Illness Consult Date: 02/28/24 Reason for Consult: Inferolateral non-ST elevation AZ, evolving to ST elevation AZ HPI: Ms. Radford is a 58 year old female seen in interventional cardiology consultation at request ofhospitalist and Dr. Tadeo for further interventional assessment and management of 58-year-old female who presented to outside hospital with bronchitis/cough symptomatology. At outside facility, s hehad nonspecific ST changes, and initially elevated troponin at 34,000 that further jorge to 38,000; I discussed case with ER attending Dr. Corrigan, and transferred her to [facility] for further evaluation and management. After arrival here she is asymptomatic, placed on IV heparin, ECGs then began toevolve with inferolateral T wave inversions, troponin came down to 8100 then further to 7700. Last night she had recurrent chest discomfort and troponin bumped up to 11,000; with ECG evolutionary changes. This morning after discussion with Dr. Tadeo, and reviewing echocardiography, it appears she has a stuttering, late presenting, inferolateral ST elevation injury current. Patient is an active smoker; no previous history of myocardial infarction or revascularization or stroke. Think she has a family history of precocious coronary disease as reviewed Plan at this time is discussed with Dr. Tadeo's proceed with early invasivemanagement for latepresenting, initially [id number] AZ with stuttering STelevation injury current developing this morning. [facility] Medical History Cystocele, unspecified Anxiety Acute recurrent maxillary sinusitis (01/20/18) Acute bronchitis, unspecified Surgical History History of appendectomy Family History Father Hypertension Social History Smoking Status: Current every day smoker Tobacco Type: cigarettes Substance Use Type: None Meds Medications and Allergies Allergies methylprednisolone (Medrol) Allergy (Unknown, Verified 12/03/23 10:33) Hives promethazine (Phenergan) Allergy (Unknown, Verified 12/03/23 10:33) Hives Home Medications valacyclovir 1 gram tablet 2,000 mg (2 x 1 gram) PO BID #4 tabs 10/28/23 [Rx Confirmed 02/26/24] tizanidine 2 mg tablet 2 mg PO Q8HR PRN muscle spasticity #30 tabs 12/03/23 [Rx Confirmed 02/26/24] ascorbic acid (vitamin C) 500 mg tablet (Vitamin C) 500 mg PO DAILY 02/26/24 [History Confirmed 02/26/24] cholecalciferol (vitamin D3) 125 mcg (5,000 unit) tablet (Vitamin D3) 5,000 unitPO DAILY 02/26/24 [History Confirmed 02/26/24] Exam Physical Exam Vital Signs: Temp Pulse Resp BP Pulse Ox O2 Del Method 98.2 F 68 18 116/78 95 Room Air 02/28/24 08:00 02/28/24 08:44 02/28/24 08:00 02/28/24 08:44 02/28/24 08:00 02/28/24 08:00 Const General: cooperative, healthy appearing, comfortable, no acute distress and welldeveloped Nutritional Appearance: average body habitus Orientation: alert, awake and oriented x3 HEENT Head: normal to inspection Neck Neck: normal visual inspection Chest Chest palpation & inspection: normal inspection of the chest Resp Effort & Inspection: normal respiratory effort Auscultation: clear to auscultation bilaterally Cardio Palpation: normal PMI Rate: regular rate Rhythm: regular rhythm Heart Sounds: S1 normal, S2 normal and no murmurs Pulses: radial pulses present and femoral pulses present GI Palpation: soft Skin General: no rashes or lesions noted Neuro General: patient alert, patient awake and patient oriented x3 Cognition: normal cognition Speech: speech normal Extrem General: no clubbing, cyanosis or edema Results - Cardiology Labs 02/28/24 04:23 02/28/24 04:23 Lab results: Cardiac Enzymes 02/27/24 Range/Units 16:22 B-Natriuretic Peptide 378.0 H (5-100) pg/mL CBC 02/28/24 Range/Units 04:23 RBC 3.82 (3.60-5.00) x10E6/uL Hgb 12.1 (11.8-15.4) g/dL Hct 36.0 (34.0-46.4) % Plt Count 282 (150-450) x10E3/uL Neut # (Auto) 11.1 H (1.8-7.7) x10E3/uL Lymph # (Auto) 3.8 (1.00-4.8) x10E3/uL [place] # (Auto) 1.3 H (0.0-0.8) x10E3/uL Eos # (Auto) 0.1 (0.0-0.45) x10E3/uL Baso # (Auto) 0.1 (0.0-0.2) x10E3/uL Comprehensive Metabolic Panel 02/28/24 Range/Units 04:23 Sodium 139 (136-145) mmol/L Potassium 4.5 (3.5-5.1) mmol/L Chloride 108 H (98-107) mmol/L Carbon Dioxide 25.4 (21.0-31.0) mmol/L BUN 17 (7-25) mg/dL Creatinine 0.54 L (0.60-1.20) mg/dL Glucose 95 (70-100) mg/dL Calcium 8.5 L (8.6-10.3) mg/dL Intake and Output 02/27/24 02/28/24 02/28/24 23:59 07:59 15:59 Intake Total 1050 / 1350 600 / 600 Balance 1050 / 1350 600 / 600 Intake: IV 250 / 250 Heparin 25,000Unit-*0.45 NaCl* 250 / 250 25,000 unit In 250 ml @ 12 UNIT /KG/HR 8.1 mls/hr IV .Q24H [facility] Rx#:[id number] Oral 800 / 1100 600 / 600 Other: # Unmeasured Voids 3 2 # Bowel Movements 1 Weight 67.3 kg Date of Last Bowel Movement 02/28/24 Patient Weight 02/28/24 23:59 Weight 67.3 kg EKG Interpretations EKG EKG results cardiology: sinus rhythm Blocks, axis, hypertrophy, ST abn Repolarization changes or abnormalities: ST or T wave suggestive of ischemia A&P - Cardiology (1) ACS (acute coronary syndrome): Code(s): I24.9 - Acute ischemic heart disease, unspecified (2) Non-ST elevation myocardial infarction (NSTEMI), initial care episode: Code(s): I21.4 - Non-ST elevation (NSTEMI) myocardial infarction (3) Tobacco abuse: Code(s): Z72.0 - Tobacco use Plan Proceed with early invasive coronary evaluation. Documented By: Kierra Mendiola DO 02/28/24 1227 Signed By: 02/28/24 1233 [facility]01-12-2025 [place] [address] Cardiology Progress Note Signed Patient: Angela Radford MR#: [id number] : 1965 Acct:[id number] Age/Sex: 58 / F Adm Date: 5 Loc: Room: [address] [place] [address] Type: ADM IN Attending Dr: Madison Munson MD Copies to: ~ Date of Service: 02/28/2024 Subjective Interval history: Patient had brief episode of chest pain with some EKG changes yesterday. Dr. Munson discussed the case Dr. Mendiola who recommended to continue medical therapy. A loading dose of Brilinta was given. Patient denies any fever or pain. White blood count down to 16,000 but there is still some bandemia. Cardiac exam showed dramatic jump in EKG demonstrated evolving inferolateral wall myocardial infarction Exam Physical Exam Vital Signs: Temp Pulse Resp BP Pulse Ox O2 Del Method 98.2 F 68 18 116/78 95 Room Air 02/28/24 08:00 02/28/24 08:44 02/28/24 08:00 02/28/24 08:44 02/28/24 08:00 02/28/24 08:00 Eyes General: appearance normal, both eyes and all related structures Pupils: PERRL Neck Neck: normal visual inspection, supple and no lymphadenopathy noted Neck mass: No Thyroid: thyroid normal Carotids: normal carotid upstroke Chest Chest palpation & inspection: normal inspection of the chest Resp Effort & Inspection: normal respiratory effort Auscultation: clear to auscultation bilaterally Cardio Palpation: normal PMI Rate: regular rate Rhythm: regular rhythm Heart Sounds: S1 normal and S2 normal GI Palpation: soft and no hepatosplenomegaly Percussion: normal to percussion Auscultation: normal bowel sounds Skin General: no rashes or lesions noted and dry skin Neuro General: patient alert, patient awake, patient oriented x3, tone normal and moves all extremities Objective Labs 02/28/24 04:23 02/28/24 04:23 Labs: Laboratory Results - last 24 hr 02/27/24 02/27/24 02/27/24 14:57 16:22 18:00 Corrected WBC Uncorrected WBC Count RBC Hgb Hct MCV MCH MCHC RDW Plt Count MPV Neut % (Auto) Lymph % (Auto) [place] % (Auto) Eos % (Auto) Baso % (Auto) Nucleat RBC Rel Count Neut # (Auto) Lymph # (Auto) [place] # (Auto) Eos # (Auto) Baso # (Auto) Heparin Anti-Xa, Unfract 0.33 PHA Creatinine Clear Sodium Potassium Chloride Carbon Dioxide Anion Gap BUN Creatinine Est GFR (CKD-EPI) Glucose Calcium Troponin I High Sens 7715.4 H* B-Natriuretic Peptide 378.0 H Urine Color Light-yellow Urine Appearance Clear Urine pH 6.0 Ur Specific [place] 1.027 Urine Protein Negative Urine Glucose (UA) Normal Urine Ketones Negative Urine Occult Blood Negative Urine Nitrite Negative Urine Bilirubin Negative Urine Urobilinogen Normal Ur Leukocyte Esterase Negative 02/27/24 02/28/24 21:03 04:23 Corrected WBC 16.4 H Uncorrected WBC Count 16.4 H RBC 3.82 Hgb 12.1 Hct 36.0 MCV 94.3 MCH 31.7 MCHC 33.6 RDW 13.2 Plt Count 282 MPV 8.1 Neut % (Auto) 67.8 Lymph % (Auto) 23.0 [place] % (Auto) 7.9 Eos % (Auto) 0.8 Baso % (Auto) 0.5 Nucleat RBC Rel Count 0.0 Neut # (Auto) 11.1 H Lymph # (Auto) 3.8 [place] # (Auto) 1.3 H Eos # (Auto) 0.1 Baso # (Auto) 0.1 Heparin Anti-Xa, Unfract 0.30 0.30 PHA Creatinine Clear 98.60 Sodium 139 Potassium 4.5 Chloride 108 H Carbon Dioxide 25.4 Anion Gap 10.1 BUN 17 Creatinine 0.54 L Est GFR (CKD-EPI) > 60.0 Glucose 95 Calcium 8.5 L Troponin I High Sens 43668.0 H* B-Natriuretic Peptide Urine Color Urine Appearance Urine pH Ur Specific [place] Urine Protein Urine Glucose (UA) Urine Ketones Urine Occult Blood Urine Nitrite Urine Bilirubin Urine Urobilinogen Ur Leukocyte Esterase A&P - Cardiology (1) ACS (acute coronary syndrome): Code(s): I24.9 - Acute ischemic heart disease, unspecified Plan Assessment 1. Late presentation with acute inferolateral wall myocardial infarction. TIMIscore of 4. Patient had an episode of chest pain last night with some subtle STsegment elevation in the inferolateral leads. Cardiac enzyme on the rise again. Was given yesterday a loading dose of Brilinta 2. Tobacco use 3. Strong family history of coronary artery disease 4. Mild resting sinus bradycardia with heart rate 55 5. Leukocytosis and bandemia without clear signs of focal infection. Patient reports some minor wisdom tooth pain Plan 1. Standard therapy for acute coronary syndrome including aspirin, heparin topical nitrates and a statin therapy. Will add low-dose beta-jayne 2. I reviewed the case with the patient and discussed the case with Dr. Mendiola. Will agree with [facility] with early invasive evaluation. Risk, benefit alternative reviewed with patient at length she understood and agreed 3. Aggressive coronary risk factor modification with special emphasis on smoking cessation 4. Case reviewed at length with patient, family, hospitalist service and interventional team Documented By: Monique Tadeo MD 02/28/241120 Signed By: 02/28/24 1129 [facility]01-11-2025 Progress note Author Madison Munson [facility] Note Date/Time February 27, 2024 4 :56pm [facility] [address] [place] [address] Hospitalist Progress Note Signed with Addenda Patient: Angela Radford MR#: [id number] : 1965 Acct:[id number] Age/Sex: 58 / F Adm Date: 5 Loc: Room: [address] [place] [address] Type: ADM IN Attending Dr: Madison Munson MD Copies to: ~ ADDENDUM1 Patient did get CT scan with IV contrast of the chest/abdomen/pelvis which did not reveal any acute findings within the chest/abdomen/pelvis. Her white cell count noted to be 18 with slight shift on admission, which increased today, however patient remains afebrile with improvement in her respiratory symptoms. Worsening of leukocytosis probably due to methylprednisolone which she got yesterday in outside emergency room. At that time she was given Rocephin and azithromycin. I suspect her leukocytosis is reactive and not related to any infection. At this point I will hold on antibiotic therapy recheck CBC in AM. Continue with PPIs Patient did develop chest pain with some shortness of breath, however at that time she was crying as well. EKG was repeated which did not reveal any ST elevation but diffuse T wave evolving inversions. I did discuss with cardiologyDrOlga Mendiola, who reviewed EKGs. Recommended to continue with aspirin and Brilinta, continue with heparin drip and Nitropaste, will give morphine for chest pain. Continue to follow telemetry. Addendum Documented By: Madison Munson MD 02/27/241655 Addendum Signed By: <Electronically signed by Madison Munson MD> 02/27/241655 Date of Service: 02/27/2024 Subjective Subjective Narrative: Patient has been seen and examined today. She is doing significantly better. She denies any shortness of breath and chest pain, which resolved, she denies any discomfort in the epigastric area, no joint pain, she denies any dizziness any lightheadedness, she does not have any respiratory symptoms Physical exam: General -awake, alert, oriented ?3, not in acute distress Cardiovascular -S1 with S2, no murmurs, no rubs, no gallops Pulmonary - clear to auscultation bilaterally Gastrointestinal - abdomen is soft, nondistended, nontender, bowel sounds positive, there is no rigidity, no rebound Extremities -no edema Neurological -no focal neurological dysfunction noted Laboratory work up and Imaging studies reviewed tube coremaker - reviewed EKG - personally reviewed by me. NSR with nonspecific changes Exam Physical Exam Vital Signs: Temp Pulse Resp BP Pulse Ox O2 Del Method 36.6 C 61 16 98/54 L 94 L Room Air 02/27/24 10:09 02/27/24 10:09 02/27/24 10:02/27/24 10:02/27/24 10:02/27/24 10:10 Objective Lab Results 02/27/24 04:23 02/27/24 04:23 Meds Allergies and Active Meds Allergies methylprednisolone (Medrol) Allergy (Unknown, Verified 12/03/23 10:33) Hives promethazine (Phenergan) Allergy (Unknown, Verified 12/03/23 10:33) Hives Active Meds: Active Medications Generic Name Dose Route Start Last Admin Trade Name Freq PRN Reason Stop Dose Admin Acetaminophen 650 mg 02/26/24 15:45 Acetaminophen 325 Mg Tablet PO 02/25/25 15:44 Q4H PRN Pain Scale 1 - 5 Albuterol 2.5 mg 02/26/24 15:45 Albuterol Neb 2.5 Mg/3 Ml Vial.Neb INHALATION 02/25/25 15:44 Q2H PRN Shortness Of Breath Aspirin 81 mg 02/27/24 09:00 02/27/24 08:32 Aspirin 81 Mg Tablet. PO 02/26/25 08:59 81 mg DAILY CHELSEA Administration Atorvastatin Calcium 40 mg 02/26/24 21:00 02/26/24 20:20 Atorvastatin 40 Mg Tablet PO 02/25/25 20:59 40 mg QPM CHELSEA Administration Docusate Sodium 200 mg 02/26/24 15:45 Docusate 100 Mg Capsule PO 02/25/25 15:44 BID PRN Constipation Heparin Sodium (Porcine) 1,700 unit 02/26/24 17:01 Heparin *Protocol Bolus* 5,000 Unit/Ml Vial 25 unit/kg (1700 unit) 02/25/25 17:00 IV-PUSH PROTOCOL PRN Anti-Xa < 0.1 or aPTT < 40 Hydralazine HCl 10 mg 02/26/24 15:45 Hydralazine 20 Mg/Ml Vial IV-PUSH 02/25/25 15:44 Q4H PRN if SBP > 185 Heparin Sodium/Sodium Chloride 25,000 unit in 250 mls @ 8.1 mls/hr 02/26/24 15:45 02/27/24 08:28 Heparin IV 02/25/25 15:44 16 unit/kg/hr .Q24H CHELSEA 10.8 mls/hr Titration Protocol 12 UNIT/KG/HR Miscellaneous Information 1 each 02/26/24 15:45 Consult To Pharmacy MISCELLANE 02/25/25 15:44 .PHACONSULT PRN ZZ.Pharmacy Consult Protocol Nitroglycerin 1 inch 02/26/24 16:20 02/27/24 08:32 Nitroglycerin 2% Oint Packet TRANSDERML 02/25/25 16:19 1 inch BID CHELSEA Administration Pantoprazole Sodium 40 mg 02/27/24 13:35 Pantoprazole 40 Mg Tablet.Dr PO 02/26/25 13:34 DAILY CHELSEA Tizanidine HCl 2 mg 02/26/24 17:11 Tizanidine 4 Mg Tablet PO 02/25/25 17:10 Q8HR PRN muscle spasticity Valacyclovir HCl 2,000 mg 02/26/24 21:00 Valacyclovir 500 Mg Tablet PO 02/25/25 20:59 BID PRN OUTBREAKS A&P - Hospitalist Assessment/Plan (1) ACS (acute coronary syndrome): Plan 1. Non-ST elevation [place], currently patient is asymptomatic, for now continue with aspirin therapy and heparin therapy, initiate statins Check echocardiogram, continue with telemetry Discussed with cardiology, cardiac catheterization planned Continue with Nitropaste 2. Epigastric discomfort, lasting for years, patient has been taking frequent this months, denies any signs of black stools bloody stools, no EGD in the past,at this point I will start her on PPIs, no active signs of bleeding to suggest bleeding ulcer We will continue empirically with Protonix 3. Leukocytosis, suspect reactive, otherwise hemodynamically stable Recheck in a.m. Clinically she is feeling better today than yesterday Respiratory symptoms resolved, I do not appreciate any other focal signs of infection Check urinalysis Documented By: Madison Munson MD 02/27/24 1337 Signed By: <Electronically signed by Madison Munson MD> 02/27/24 0629 [facility] Work Phone: 1(759) 465-508701-11-2025 [place] [address] Hospitalist Progress Note Signed with Addenda Patient: Angela Radford MR#: [id number] : 1965 Acct:[id number] Age/Sex: 58 / F Adm Date: 5 Loc: Room: [address] [place] [address] Type: ADM IN Attending Dr: Madison Munson MD Copies to: ~ ADDENDUM1 Patient did get CT scan with IV contrast of the chest/abdomen/pelvis which did not reveal any acutefindings within the chest/abdomen/pelvis. Her white cell count noted to be 18 with slight shift on admission, which increased today, however patient remains afebrile with improvement in her respiratory symptoms. Worsening of leukocytosis probably due to methylprednisolone which she got yesterday in outside emergency room. At that time she was given Rocephin and azithromycin. I suspect her leukocytosis is reactive and not related to any infection. At this point I will hold on antibiotic therapy recheck CBC in AM. Continue with PPIs Patient did develop chest pain with some shortness of breath, however at that time she was crying as well. EKG was repeated which did not reveal any ST elevation but diffuse T wave evolving inversions. I did discuss with cardiologyDr. Mendiola, who reviewed EKGs. Recommended to continue with aspirin and Brilinta, continue with heparin drip and Nitropaste, will give morphine for chest pain. Continue to follow telemetry. Addendum Documented By: Madison Munson MD 02/27/241655 Addendum Signed By: 02/27/241655 Date of Service: 02/27/2024 Subjective Subjective Narrative: Patient has been seen and examined today. She is doing significantly better. She denies any shortness of breath and chest pain, which resolved, she denies any discomfort in the epigastric area, no joint pain, she denies any dizziness any lightheadedness, she does not have any respiratory symptoms Physical exam: General -awake, alert, oriented ?3, not in acute distress Cardiovascular -S1 with S2, no murmurs, no rubs, no gallops Pulmonary - clear to auscultation bilaterally Gastrointestinal - abdomen is soft, nondistended, nontender, bowel sounds positive, there is no rigidity, no rebound Extremities -no edema Neurological -no focal neurological dysfunction noted Laboratory work up and Imaging studies reviewed tube coremaker - reviewed EKG - personally reviewed by me. NSR with nonspecific changes Exam Physical Exam Vital Signs: Temp Pulse Resp BP Pulse Ox O2 Del Method 36.6 C 61 16 98/54 L 94 L Room Air 02/27/24 10:09 02/27/24 10:02/27/24 10:02/27/24 10:02/27/24 10:09 02/27/24 10:10 Objective Lab Results 02/27/24 04:23 02/27/24 04:23 Meds Allergies and Active Meds Allergies methylprednisolone (Medrol) Allergy (Unknown, Verified 12/03/23 10:33) Hives promethazine (Phenergan) Allergy (Unknown, Verified 12/03/23 10:33) Hives Active Meds: Active Medications Generic Name Dose Route Start Last Admin Trade Name Patti PRN Reason Stop Dose Admin Acetaminophen 650 mg 02/26/24 15:45 Acetaminophen 325 Mg Tablet PO 02/25/25 15:44 Q4H PRN Pain Scale 1 - 5 Albuterol 2.5 mg 02/26/24 15:45 Albuterol Neb 2.5 Mg/3 Ml Vial.Neb INHALATION 02/25/25 15:44 Q2H PRN Shortness Of Breath Aspirin 81 mg 02/27/24 09:00 02/27/24 08:32 Aspirin 81 Mg Tablet. PO 02/26/25 08:59 81 mg DAILY CHELSEA Administration Atorvastatin Calcium 40 mg 02/26/24 21:00 02/26/24 20:20 Atorvastatin 40 Mg Tablet PO 02/25/25 20:59 40 mg QPM CHELSEA Administration Docusate Sodium 200 mg 02/26/24 15:45 Docusate 100 Mg Capsule PO 02/25/25 15:44 BID PRN Constipation Heparin Sodium (Porcine) 1,700 unit 02/26/24 17:01 Heparin *Protocol Bolus* 5,000 Unit/Ml Vial 25 unit/kg (1700 unit) 02/25/25 17:00 IV-PUSH PROTOCOL PRN Anti-Xa < 0.1 or aPTT < 40 Hydralazine HCl 10 mg 02/26/24 15:45 Hydralazine 20 Mg/Ml Vial IV-PUSH 02/25/25 15:44 Q4H PRN if SBP > 185 Heparin Sodium/Sodium Chloride 25,000 unit in 250 mls @ 8.1 mls/hr 02/26/24 15:45 02/27/24 08:28 Heparin IV 02/25/25 15:44 16 unit/kg/hr .Q24H CHELSEA 10.8 mls/hr Titration Protocol 12 UNIT/KG/HR Miscellaneous Information 1 each 02/26/24 15:45 Consult To Pharmacy MISCELLANE 02/25/25 15:44 .PHACONSULT PRN ZZ.Pharmacy Consult Protocol Nitroglycerin 1 inch 02/26/24 16:20 02/27/24 08:32 Nitroglycerin 2% Oint Packet TRANSDERML 02/25/25 16:19 1 inch BID CHELSEA Administration Pantoprazole Sodium 40 mg 02/27/24 13:35 Pantoprazole 40 Mg Tablet. PO 02/26/25 13:34 DAILY CHELSEA Tizanidine HCl 2 mg 02/26/24 17:11 Tizanidine 4 Mg Tablet PO 02/25/25 17:10 Q8HR PRN muscle spasticity Valacyclovir HCl 2,000 mg 02/26/24 21:00 Valacyclovir 500 Mg Tablet PO 02/25/25 20:59 BID PRN OUTBREAKS A&P - Hospitalist Assessment/Plan (1) ACS (acute coronary syndrome): Plan 1. Non-ST elevation [place], currently patient is asymptomatic, for now continue with aspirin therapy and heparin therapy, initiate statins Check echocardiogram, continue with telemetry Discussed with cardiology, cardiac catheterization planned Continue with Nitropaste 2. Epigastric discomfort, lasting for years, patient has been taking frequent this months, denies any signs of black stools bloody stools, no EGD in the past,at this point I will start her on PPIs, no active signs of bleeding to suggest bleeding ulcer We will continue empirically with Protonix 3. Leukocytosis, suspect reactive, otherwise hemodynamically stable Recheck in a.m. Clinically she is feeling better today than yesterday Respiratory symptoms resolved, I do not appreciate any other focal signs of infection Check urinalysis Documented By: Madison Munson MD 02/27/24 1337 Signed By: 02/27/24 1339 [facility]01-11-2025 History and physical note Author Madison Munson [facility] Note Date/Time February 27, 2024 1 :37pm [facility] [address] [place] [address] Hospitalist H&P Signed Patient: Angela Radofrd MR#: [id number] : 1965 Acct:[id number] Age/Sex: 58 / F Adm Date: 5 Loc: Room: [address] [place] [address] Type: ADM IN Attending Dr: Madison Munson MD Copies to: MD Madison Carey MD~ HPI DATE OF EXAMINATION: 02/26/24 CHIEF COMPLAINT: Chest pain HISTORY OF PRESENT ILLNESS: 58 years old female without underlying history of coronary disease but she does have family history of premature coronary artery disease in her father in 50s, she is a smoker, presented with complaints of shortness of breath and chest tightness with tingling in bilateral upper hands. Patient has not been feeling well for couple of days, 5 days ago she developed some wisdom teeth pain, associated with some nasal congestion, and epigastric discomfort. She has been having epigastric discomfort for years and has been taking bismuth. She has never had EGD. She has good appetite and denies any weight loss. 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 Today she developed shortness ofbreath and severe chest tightness radiating to the mid and left chest associatedwith bilateral hand tingling. She presented to emergency room where she was found to have troponins 34,000. EKG with nonspecific changes. She was given aspirin and was started on heparin drip after discussion with Dr. Mendiola. WhenI saw her she was asymptomatic apart from being fatigued. Stat troponins and stat EKG ordered, results pending 10 systems are reviewed and are negative apart as mentioned H&P General -patient is awake alert oriented ?3, does not appear to be in distress HEENT -normal oropharyngeal mucosa without any ulcers or exudates Cardiovascular -S1 plus S2, with regular rate, without any murmurs, gallops, rubs Pulmonary -clear to auscultation bilaterally Gastrointestinal -abdomen is soft, nondistended, nontender, bowel sounds positive, no rigidity, no rebound Genitourinary -deferred Musculoskeletal -no back tenderness, no significant joint swelling, full range of motion Neurological -no focal Skin -no significant ulcers, no rash noted Extremities - no edema in bilateral lower extremities noted Psychiatry - appropriate affect Laboratory work up, imaging studies reviewed EKG personally reviewed by me, pending Previous records in the computer system reviewed [facility] Medical History Cystocele, unspecified Anxiety Acute recurrent maxillary sinusitis (01/20/18) Acute bronchitis, unspecified Surgical History History of appendectomy Family History Father Hypertension Social History Smoking Status: Current every day smoker Meds Medications and Allergies Allergies methylprednisolone (Medrol) Allergy (Unknown, Verified 12/03/23 10:33) Hives promethazine (Phenergan) Allergy (Unknown, Verified 12/03/23 10:33) Hives Home Medications valacyclovir 1 gram tablet 2,000 mg (2 x 1 gram) PO BID #4 tabs 10/28/23 [Rx Confirmed 02/26/24] tizanidine 2 mg tablet 2 mg PO Q8HR PRN muscle spasticity #30 tabs 12/03/23 [Rx Confirmed 02/26/24] ascorbic acid (vitamin C) 500 mg tablet (Vitamin C) 500 mg PO DAILY 02/26/24 [History Confirmed 02/26/24] cholecalciferol (vitamin D3) 125 mcg (5,000 unit) tablet (Vitamin D3) 5,000 unitPO DAILY 02/26/24 [History Confirmed 02/26/24] Assessment & Plan Assessment/Plan (1) ACS (acute coronary syndrome): Plan 1. Non-ST elevation [place], currently patient is asymptomatic, for now continue with aspirin therapy and heparin therapy, initiate statins Check echocardiogram, continue with telemetry and serial cardiac enzymes I will start nitroglycerin paste Cardiology notified 2. Epigastric discomfort, lasting for years, patient has been taking frequent this months, denies any signs of black stools bloody stools, no EGD in the past,at this point I will start her on PPIs, no active signs of bleeding to suggest bleeding ulcer We will continue empirically with Protonix 3. Leukocytosis, suspect reactive, otherwise hemodynamically stable IP vs OBS Justification Based on differential dx, clinical care plan, and risk of adverse events, if untreated, in my clinical judgement this patient requires an acute care setting as: INPATIENT because of an expectation of an over 2 midnight stay. Estimated length of stay (# of days): 3 Documented By: Madison Munson MD 02/26/24 1616 Signed By: <Electronically signed by Madison Munson MD> 02/27/24 1337 [facility] Work Phone: 1(360) 391-587701-11-2025 Consult note Author Monique Tadeo [facility] Note Date/Time February 27, 2024 1 2:24pm [facility] [address] [place] [address] Cardiology Consult Note Signed Patient: Angela Radford MR#: [id number] : 1965 Acct:[id number] Age/Sex: 58 / F Adm Date: 5 Loc: Room: [address] [place] [address] Type: ADM IN Attending Dr: Madison Munson MD Copies to: MD Monique Carey MD Ruta Semaskiene, MD~ Cardiology HPI History of Present Illness Consult Date: 02/27/24 Reason for Consult: Cardiac consultation requested for evaluation for acute coronary syndrome HPI: Ms. Radford is a 58 year old female with no prior cardiac history presented to [facility] complaining of symptoms of her upper respiratory tract infection including nasal congestion and mild shortness of breath. She also reported symptoms of epigastric and lower sternal chest discomfort plus bilateral arm tingling.. She report also some pain in her teeth related to wisdom teeth issue. Patient report her symptoms has been ongoing for about a week but gotten worse yesterday. She went to the emergency room for evaluation where workup was consistent with evidence of acute coronary syndrome. Peak troponin on presentation with 38,000. EKG was nonacute. Case was discussed with Dr. Mendiola over the phone and the patient was advised to be transferred over here for evaluation. She was seen yesterday afternoon by the hospitalist at that point of time the patient appears chest pain-free hemodynamically stableand it appears her enzymes were are trending down. EKG showed no acute changes and decision was made for medical management with consideration for invasive evaluation at a later time. At the time of evaluation today the patient had no chest pain or shortness of breath. Prior to this hospitalization patient reported excellent exercise tolerance. She does have very strong family historyof coronary artery disease and she is a smoker. Review of Systems Review of Systems All other systems reviewed & are negative unless noted below or in HPI Constitutional Constitutional: Reports system reviewed and no additional complaints, except as documented Comments: She reports symptoms of RSV upper respiratory tract infection ENT Ears, Nose, Mouth, and Throat: Reports system reviewed and no additional complaints, except as documented Cardiovascular Cardiovascular: Reports system reviewed and no additional complaints, except as documented Respiratory Respiratory: Reports dyspnea on exertion Gastrointestinal Gastrointestinal: Reports system reviewed and no additional complaints, except as documented Genitourinary Genitourinary: Reports system reviewed and no additional complaints, except as documented Musculoskeletal Musculoskeletal: Reports system reviewed and no additional complaints, except asdocumented Integumentary/Breasts Skin/Breast: Reports system reviewed and no additional complaints, except as documented Neurologic Neurologic: Reports system reviewed and no additional complaints, except as documented Psychiatric Psychiatric: Reports system reviewed and no additional complaints, except as documented Endocrine Endocrine: Reports system reviewed and no additional complaints, except as documented Hematologic/Lymphatic Hematologic/Lymphatic: Reports system reviewed and no additional complaints, except as documented Allergic/Immunologic Allergic/Immunologic: Reports system reviewed and no additional complaints, except as documented [facility] Medical History Cystocele, unspecified Anxiety Acute recurrent maxillary sinusitis (01/20/18) Acute bronchitis, unspecified Surgical History History of appendectomy Family History Father Hypertension Social History Smoking Status: Current every day smoker Tobacco Type: cigarettes Substance Use Type: None Meds Medications and Allergies Allergies methylprednisolone (Medrol) Allergy (Unknown, Verified 12/03/23 10:33) Hives promethazine (Phenergan) Allergy (Unknown, Verified 12/03/23 10:33) Hives Home Medications valacyclovir 1 gram tablet 2,000 mg (2 x 1 gram) PO BID #4 tabs 10/28/23 [Rx Confirmed 02/26/24] tizanidine 2 mg tablet 2 mg PO Q8HR PRN muscle spasticity #30 tabs 12/03/23 [Rx Confirmed 02/26/24] ascorbic acid (vitamin C) 500 mg tablet (Vitamin C) 500 mg PO DAILY 02/26/24 [History Confirmed 02/26/24] cholecalciferol (vitamin D3) 125 mcg (5,000 unit) tablet (Vitamin D3) 5,000 unitPO DAILY 02/26/24 [History Confirmed 02/26/24] Exam Physical Exam Vital Signs: Temp Pulse Resp BP Pulse Ox O2 Del Method 97.9 F 61 16 98/54 L 94 L Room Air 02/27/24 10:09 02/27/24 10:09 02/27/24 10:09 02/27/24 10:09 02/27/24 10:09 02/27/24 10:10 Const General: cooperative, comfortable, no acute distress and well developed HEENT Head: atraumatic Mouth: oral mucosae normal Eyes General: appearance normal, both eyes and all related structures Pupils: PERRL Neck Neck: normal visual inspection, supple and no lymphadenopathy noted Neck mass: No Thyroid: thyroid normal Carotids: normal carotid upstroke Chest Chest palpation & inspection: normal inspection of the chest Resp Effort & Inspection: normal respiratory effort Auscultation: clear to auscultation bilaterally Cardio Palpation: normal PMI Rate: regular rate Rhythm: regular rhythm Heart Sounds: S1 normal and S2 normal GI Palpation: soft and no hepatosplenomegaly Percussion: normal to percussion Auscultation: normal bowel sounds Skin General: no rashes or lesions noted and dry skin Neuro General: patient alert, patient awake, patient oriented x3, tone normal and moves all extremities Extrem General: full ROM, capillary refill normal and no clubbing, cyanosis or edema Psych Mental Status: mental status grossly normal CARLOS Risk Score CARLOS Risk Score Predictor Historical: 3 or more Risk Factors: FHx,HTN,elevated cholesterol,DM,active smoker Presentation: Recent (>/=24hr) Angina, Increased Cardiac Marker and ST Deviation>/=0.05mV Score Risk Score (0-7): 4 Results - Cardiology Labs 02/27/24 04:23 02/27/24 04:23 Lab results: Lipids 02/27/24 Range/Units 04:23 Triglycerides 339 H (0-149) mg/dL Cholesterol 194 (140-200) mg/dL HDL Cholesterol 48 (23-92) mg/dL Cholesterol/HDL Ratio 4.0 (<5.0) CBC 02/27/24 Range/Units 04:23 RBC 3.97 (3.60-5.00) x10E6/uL Hgb 12.4 (11.8-15.4) g/dL Hct 37.6 (34.0-46.4) % Plt Count 282 (150-450) x10E3/uL Neut # (Auto) N/A Lymph # (Auto) N/A [place] # (Auto) N/A Eos # (Auto) N/A Baso # (Auto) N/A Comprehensive Metabolic Panel 02/27/24 Range/Units 04:23 Sodium 140 (136-145) mmol/L Potassium 4.5 (3.5-5.1) mmol/L Chloride 107 (98-107) mmol/L Carbon Dioxide 25.0 (21.0-31.0) mmol/L BUN 13 (7-25) mg/dL Creatinine 0.50 L (0.60-1.20) mg/dL Glucose 133 H (70-100) mg/dL Calcium 8.7 (8.6-10.3) mg/dL Intake and Output 02/26/24 02/27/24 02/27/24 23:59 07:59 15:59 Intake Total 450 / 450 300 / 300 Balance 450 / 450 300 / 300 Intake: Oral 450 / 450 300 / 300 Other: # Unmeasured Voids 2 3 # Bowel Movements 0 0 Weight 67.5 kg 67.6 kg Patient Weight 02/27/24 23:59 Weight 67.6 kg EKG Interpretations EKG Attestation EKG: I reviewed this ECG and interpreted as documented below: (Mild sinus bradycardia with lateral ST-T changes) A&P - Cardiology (1) ACS (acute coronary syndrome): Code(s): I24.9 - Acute ischemic heart disease, unspecified Plan Assessment 1. Acute coronary syndrome likely due to posterior [place] suspect left circumflex disease. CARLOS score is 4 suggestive of high risk for ischemic complication and benefit from invasive evaluation 2. Tobacco use 3. Strong family history of coronary artery disease 4. Mild resting sinus bradycardia with heart rate 55 Plan 1. Standard therapy for acute coronary syndrome including aspirin, heparin topical nitrates and a statin therapy. Consider beta-blockers if heart rate above 60 2. At the moment there is no indication for acute intervention. But patient would benefit from invasive evaluation. Risk, benefit and alternative reviewed with patient and her family at great length. Will plan on proceeding with heartcat Thursday or earlier if there is any changes in clinical status or recurrent angina or ischemic symptoms 3. Aggressive coronary risk factor modification with special emphasis on smoking cessation 4. Case reviewed at length with patient, family, hospitalist service and interventional team Documented By: Monique Tadeo MD 02/27/24 1214 Signed By: <Electronically signed by MD Monique Tadeo> 02/27/24 1224 [facility] Work Phone: 1(914) 165-256001-11-2025 [place] [address] Hospitalist H&P Signed Patient: Angela Radford MR#: [id number] : 1965 Acct:[id number] Age/Sex: 58 / F Adm Date: 5 Loc: Room: [address] [place] [address] Type: ADM IN Attending Dr: Madison Munson MD Copies to: MD Madison Carey MD~ HPI DATE OF EXAMINATION: 02/26/24 CHIEF COMPLAINT: Chest pain HISTORY OF PRESENT ILLNESS: 58 years old female without underlying history of coronary disease but she does have family historyof premature coronary artery disease in her father in 50s, she is a smoker, presented with complaints of shortness of breath and chest tightness with tingling in bilateral upper hands. Patient has not been feeling well for couple of days, 5 days ago she developed some wisdom teeth pain, associated with some nasal congestion, and epigastric discomfort. She has been having epigastric discomfort foryears and has been taking bismuth. She has never had EGD. She has good appetite and denies any weight loss. 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 Today she developed shortness ofbreath and severe chest tightness radiating to the mid and left chest associatedwith bilateral hand tingling. She presented to emergency room where she was found to have troponins 34,000. EKG with nonspecificchanges. She was given aspirin and was started on heparin drip after discussion with Dr. Mendiola. WhenI saw her she was asymptomatic apart from being fatigued. Stat troponins and stat EKG ordered, results pending 10 systems are reviewed and are negative apart as mentioned H&P General -patient is awake alert oriented ?3, does not appear to be in distress HEENT -normal oropharyngeal mucosa without any ulcers or exudates Cardiovascular -S1 plus S2, with regular rate, without any murmurs, gallops, rubs Pulmonary -clear to auscultation bilaterally Gastrointestinal -abdomen is soft, nondistended, nontender, bowel sounds positive, no rigidity, no rebound Genitourinary -deferred Musculoskeletal -no back tenderness, no significant joint swelling, full range of motion Neurological -no focal Skin -no significant ulcers, no rash noted Extremities - no edema in bilateral lower extremities noted Psychiatry - appropriate affect Laboratory work up, imaging studies reviewed EKG personally reviewed by me, pending Previous records in the computer system reviewed [facility] Medical History Cystocele, unspecified Anxiety Acute recurrent maxillary sinusitis (01/20/18) Acute bronchitis, unspecified Surgical History History of appendectomy Family History Father Hypertension Social History Smoking Status: Current every day smoker Meds Medications and Allergies Allergies methylprednisolone (Medrol) Allergy (Unknown, Verified 12/03/23 10:33) Hives promethazine (Phenergan) Allergy (Unknown, Verified 12/03/23 10:33) Hives Home Medications valacyclovir 1 gram tablet 2,000 mg (2 x 1 gram) PO BID #4 tabs 10/28/23 [Rx Confirmed 02/26/24] tizanidine 2 mg tablet 2 mg PO Q8HR PRN muscle spasticity #30 tabs 12/03/23 [Rx Confirmed 02/26/24] ascorbic acid (vitamin C) 500 mg tablet (Vitamin C) 500 mg PO DAILY 02/26/24 [History Confirmed 02/26/24] cholecalciferol (vitamin D3) 125 mcg (5,000 unit) tablet (Vitamin D3) 5,000 unitPO DAILY 02/26/24 [History Confirmed 02/26/24] Assessment & Plan Assessment/Plan (1) ACS (acute coronary syndrome): Plan 1. Non-ST elevation AZ, currently patient is asymptomatic, for now continue with aspirin therapy and heparin therapy, initiate statins Check echocardiogram, continue with telemetry and serial cardiac enzymes I will start nitroglycerin paste Cardiology notified 2. Epigastric discomfort, lasting for years, patient has been taking frequent this months, denies any signs of black stools bloody stools, no EGD in the past,at this point I will start her on PPIs, no active signs of bleeding to suggest bleeding ulcer We will continue empirically with Protonix 3. Leukocytosis, suspect reactive, otherwise hemodynamically stable IP vs OBS Justification Based on differential dx, clinical care plan, and risk of adverse events, if untreated, in my clinical judgement this patient requires an acute care setting as: INPATIENT because of an expectation ofan over 2 midnight stay. Estimated length of stay (# of days): 3 Documented By: Madison Munson MD 02/26/24 1616 Signed By: 02/27/24 1337 [facility]01-11-[address] [address] Cardiology Consult Note Signed Patient: Angela Radford MR#: [id number] : 1965 Acct:[id number] Age/Sex: 58 / F Adm Date: 5 Loc: 4 Room: 2K5188-4 Type: ADM IN Attending Dr: Madison Munson MD Copies to: MD Monique Carey MD Ruta Semaskiene, MD~ Cardiology HPI History of Present Illness Consult Date: 02/27/24 Reason for Consult: Cardiac consultation requested for evaluation for acute coronary syndrome HPI: Ms. Radford is a 58 year old female with no prior cardiac history [facility] infection including nasal congestion and mild shortness of breath. She also reported symptoms of epigastric and lower sternal chest discomfort plus bilateral arm tingling.. She report also some pain in her teeth related to wisdom teeth issue. Patient report her symptoms has been ongoing for about a week but gotten worse yesterday. She went [facility] emergency room for evaluation where workup was consistent with evidence of acute coronary syndrome. Peak troponin on presentation with 38,000. EKG was nonacute. Case was discussed with Dr. Mendiola over the phone and the patient was advised to be transferred over here for evaluation. She was seen yesterday afternoon by the hospitalist at that point of time the patient appears chest pain-free hemodynamically stableand it appears her enzymes were are trending down. EKG showed no acute changes and decision was made for medical management with consideration for invasive evaluation at a later time. At the time of evaluation today the patient had no chest pain or shortness of breath. Prior to this hospitalization patient reported excellent exercise tolerance. She does have very strong familyhistoryof coronary artery disease and she is a smoker. Review of Systems Review of Systems All other systems reviewed & are negative unless noted below or in HPI Constitutional Constitutional: Reports system reviewed and no additional complaints, except as documented Comments: She reports symptoms of RSV upper respiratory tract infection ENT Ears, Nose, Mouth, and Throat: Reports system reviewed and no additional complaints, except as documented Cardiovascular Cardiovascular: Reports system reviewed and no additional complaints, except as documented Respiratory Respiratory: Reports dyspnea on exertion Gastrointestinal Gastrointestinal: Reports system reviewed and no additional complaints, except as documented Genitourinary Genitourinary: Reports system reviewed and no additional complaints, except as documented Musculoskeletal Musculoskeletal: Reports system reviewed and no additional complaints, except asdocumented Integumentary/Breasts Skin/Breast: Reports system reviewed and no additional complaints, except as documented Neurologic Neurologic: Reports system reviewed and no additional complaints, except as documented Psychiatric Psychiatric: Reports system reviewed and no additional complaints, except as documented Endocrine Endocrine: Reports system reviewed and no additional complaints, except as documented Hematologic/Lymphatic Hematologic/Lymphatic: Reports system reviewed and no additional complaints, except as documented Allergic/Immunologic Allergic/Immunologic: Reports system reviewed and no additional complaints, except as documented [facility] Medical History Cystocele, unspecified Anxiety Acute recurrent maxillary sinusitis (01/20/18) Acute bronchitis, unspecified Surgical History History of appendectomy Family History Father Hypertension Social History Smoking Status: Current every day smoker Tobacco Type: cigarettes Substance Use Type: None Meds Medications and Allergies Allergies methylprednisolone (Medrol) Allergy (Unknown, Verified 12/03/23 10:33) Hives promethazine (Phenergan) Allergy (Unknown, Verified 12/03/23 10:33) Hives Home Medications valacyclovir 1 gram tablet 2,000 mg (2 x 1 gram) PO BID #4 tabs 10/28/23 [Rx Confirmed 02/26/24] tizanidine 2 mg tablet 2 mg PO Q8HR PRN muscle spasticity #30 tabs 12/03/23 [Rx Confirmed 02/26/24] ascorbic acid (vitamin C) 500 mg tablet (Vitamin C) 500 mg PO DAILY 02/26/24 [History Confirmed 02/26/24] cholecalciferol (vitamin D3) 125 mcg (5,000 unit) tablet (Vitamin D3) 5,000 unitPO DAILY 02/26/24 [History Confirmed 02/26/24] Exam Physical Exam Vital Signs: Temp Pulse Resp BP Pulse Ox O2 Del Method 97.9 F 61 16 98/54 L 94 L Room Air 02/27/24 10:02/27/24 10:02/27/24 10:02/27/24 10:02/27/24 10:02/27/24 10:10 Const General: cooperative, comfortable, no acute distress and well developed HEENT Head: atraumatic Mouth: oral mucosae normal Eyes General: appearance normal, both eyes and all related structures Pupils: PERRL Neck Neck: normal visual inspection, supple and no lymphadenopathy noted Neck mass: No Thyroid: thyroid normal Carotids: normal carotid upstroke Chest Chest palpation & inspection: normal inspection of the chest Resp Effort & Inspection: normal respiratory effort Auscultation: clear to auscultation bilaterally Cardio Palpation: normal PMI Rate: regular rate Rhythm: regular rhythm Heart Sounds: S1 normal and S2 normal GI Palpation: soft and no hepatosplenomegaly Percussion: normal to percussion Auscultation: normal bowel sounds Skin General: no rashes or lesions noted and dry skin Neuro General: patient alert, patient awake, patient oriented x3, tone normal and moves all extremities Extrem General: full ROM, capillary refill normal and no clubbing, cyanosis or edema Psych Mental Status: mental status grossly normal CARLOS Risk Score CARLOS Risk Score Predictor Historical: 3 or more Risk Factors: FHx,HTN,elevated cholesterol,DM,active smoker Presentation: Recent (>/=24hr) Angina, Increased Cardiac Marker and ST Deviation>/=0.05mV Score Risk Score (0-7): 4 Results - Cardiology Labs 02/27/24 04:23 02/27/24 04:23 Lab results: Lipids 02/27/24 Range/Units 04:23 Triglycerides 339 H (0-149) mg/dL Cholesterol 194 (140-200) mg/dL HDL Cholesterol 48 (23-92) mg/dL Cholesterol/HDL Ratio 4.0 (<5.0) CBC 02/27/24 Range/Units 04:23 RBC 3.97 (3.60-5.00) x10E6/uL Hgb 12.4 (11.8-15.4) g/dL Hct 37.6 (34.0-46.4) % Plt Count 282 (150-450) x10E3/uL Neut # (Auto) N/A Lymph # (Auto) N/A [place] # (Auto) N/A Eos # (Auto) N/A Baso # (Auto) N/A Comprehensive Metabolic Panel 02/27/24 Range/Units 04:23 Sodium 140 (136-145) mmol/L Potassium 4.5 (3.5-5.1) mmol/L Chloride 107 (98-107) mmol/L Carbon Dioxide 25.0 (21.0-31.0) mmol/L BUN 13 (7-25) mg/dL Creatinine 0.50 L (0.60-1.20) mg/dL Glucose 133 H (70-100) mg/dL Calcium 8.7 (8.6-10.3) mg/dL Intake and Output 02/26/24 02/27/24 02/27/24 23:59 07:59 15:59 Intake Total 450 / 450 300 / 300 Balance 450 / 450 300 / 300 Intake: Oral 450 / 450 300 / 300 Other: # Unmeasured Voids 2 3 # Bowel Movements 0 0 Weight 67.5 kg 67.6 kg Patient Weight 02/27/24 23:59 Weight 67.6 kg EKG Interpretations EKG Attestation EKG: I reviewed this ECG and interpreted as documented below: (Mild sinus bradycardia with lateral ST-T changes) A&P - Cardiology (1) ACS (acute coronary syndrome): Code(s): I24.9 - Acute ischemic heart disease, unspecified Plan Assessment 1. Acute coronary syndrome likely due to posterior AZ suspect left circumflex disease. CARLOS score is 4 suggestive of high risk for ischemic complication and benefit from invasive evaluation 2. Tobacco use 3. Strong family history of coronary artery disease 4. Mild resting sinus bradycardia with heart rate 55 Plan 1. Standard therapy for acute coronary syndrome including aspirin, heparin topical nitrates and a statin therapy. Consider beta-blockers if heart rate above 60 2. At the moment there is no indication for acute intervention. But patient would benefit from invasive evaluation. Risk, benefit and alternative reviewed with patient and her family at great length.[facility] or earlier if there is any changes in clinical statusor recurrent angina or ischemic symptoms 3. Aggressive coronary risk factor modification with special emphasis on smoking cessation 4. Case reviewed at length with patient, family, hospitalist service and interventional team Documented By: Monique Tadeo MD 02/27/24 1214 Signed By: 02/27/24 1224 [facility]10-17-2024 Evaluation note* Diagnosis Onset Date Resolution Status Admit Date Left shoulder pain acute Octobe r 2023 10:20am Lumbar back pain with radiculopathy affecting right lower extremity acute December 02 10:20am ACS (acute coronary syndrome) acute February 26, 2024 2:46pm Non-ST elevation myocardial infarction (NSTEMI), initial care episode acute February 25 2:46pm Tobacco abuse acute February 2:46pm [facility] Work Phone: [phone] 208-142403-02-2023 Evaluation note* Encounter Date Diagnosis Assessment Notes Treatment Notes Treatment Clinical Notes Apr, Maxillary sinusitis, unspecified chronicity (ICD-10 - J32.0) Reports a lot of sinus drainage. Take entire course of antibiotic. Apr, Diarrhea of presumed infectious origin (ICD-10 - R19.7) Discussed there is a virus going around. Discussed symptom managment with Pepto or Imodium. [employer] Other Discharge summary Author Javier Leon [facility] Note Date/Time February 29, 2024 4 :12pm [facility] [address] [place] [address] Discharge Summary Signed Patient: Angela Radford MR#: [id number] : 1965 Acct:[id number] Age/Sex: 58 / F Adm Date: 5 Loc: Room: [address] [place] [address]: Javier Leon MD Copies to: MD Beckie Beach MD~ Providers Date of Discharge: 02/29/24 Discharging Provider: Javier Leon Primary Care Provider: Beckie Balderrama Consults: 02/26/24 15:45 Consult to Cardiology Routine Comment: Consulting Provider: [facility], [facility] Reason For Exam: nstemi Has Provider Been Notified: Yes Date of Notification: 02/26/24 Time of Notification: 16:12 Discharge Diagnosis Final Diagnosis Final Discharge Diagnosis: Non-STEMI, revascularization of Mid circumflex and obtuse marginal branch duringthis admission Chronic problems Tobacco abuse a pack a day Anxiety disorder Summary Hospital Course Hospital course: Patient is a pleasant 58-year-old female, presented emergency department with complaints of chest tightness for few days radiating to the neck and teeth. Evaluation was consistent with a non-STEMI. She was admitted to the hospital and underwent coronary angiogram. Significant disease was identified, requiringstenting of the mid circumflex artery and obtuse marginal. She was started on medical therapy for CAD and AZ. No complications occurred and she was discharged home in stable condition in February 28. We discussed at length the importance of tobacco cessation. LP(a), APO A and APO B were sent and are pending at time of discharge, given her family history at relatively young age. Time Spent with Patient Time spent providing/coordinating discharge services (# min): 40 Surgeries and Procedures Operation Date: 02/28/24 12:30 Actual Procedures p CL LHC & COR Angio - W Ki Mendiola DO p CL Stent 1st Vessel CX JASMYNE(Right) - W Ki Mendiola DO p CL PCI HR PAYROLL COORDINATOR Ea Add CX(Right) - W Ki Mendiola DO Discharge Plan Discharge Plan Patient Disposition: Home Activity: Ambulate as Tolerated Comment: See coronary angioplasty dc instructions below for activity restrictions. Diet: Low-Sodium and Low-Cholesterol Additional Instructions: DISCHARGE INSTRUCTIONS FOR ANGIOPLASTY/CORONARY/PERIPHERAL/STENT IMPLANT FOR ADULT ANTICOAGULATION -Since the greatest risk of a blood clot forming with the stent occurs in the first 2-3 weeks after implantation, you will need to take anticoagulants for at least 12-18 months. ANTICOAGULATION MEDICATION Aspirin 81mg once a day, Ticagrelor (Brilinta) 90mg twice a day STATIN MEDICATION Atorvastatin (Lipitor) 80 mg Drug-Eluting Stent (JASMYNE) DO NOT discontinue Brilinta/Aspirin during the first few months regardless of what you are advised by your family doctor or pharmacist, without first calling the architectural drafting instructor who implanted the stent. If you require pain relief during this time, please take only ACETAMINOPHEN (TYLENOL)- NO additional aspirin or ibuprofen. DISCHARGE ACTIVITIES ARE FOLLOWS: First week after discharge: -Take it easy at home, no strenuous activity. -Do not lift or pull objects over 10-15 pounds, including children, and groceries for four weeks. If puncture site is at wrist do NOT lift more than three pounds for three days. - May walk up stairs. -May shower. -No excessive scrubbing of the affected site (groin). -May ride in car. -May resume sexual intercourse after 1-2 weeks. -No MRI for 12 days. -May drive in 4-7 days. -If puncture site is at the wrist do not manipulate the wrist for 24 hours, and no soaking wrist for three days. Second Week: -May take a bath -May start walking 3 times a week for 15-20 minutes at a leisurely pace. You should be able to carry on a conversation comfortably without feeling winded. -No strenuous activity as in jogging, running, weight lifting, stair steppers, etc. until the architectural drafting instructor approves these activities. Check with the architectural drafting instructor on your first follow-up visit. CALL YOUR DESIGN EDITOR: -If bleeding should occur from the catheter insertion site- apply pressure to the site then immediately call us. -Report any fever, redness, drainage, increased swelling, or firmness at the catheter insertion site. Some bruising or slight swelling may be present at thetime of discharge. -Should arm or leg become cold, numb, white, or blue, contact the architectural drafting instructor immediately. -IF you should experience episodes of angina, e.g. chest discomfort, heaviness, tightness, pressure burning with or without radiation to the neck, jaw, arms or back- use 1 Nitrostat tablet under your tongue every 5-10 minutes and up to three tablets. IF NO RELIEF, CALL 911 or GO TO THE NEAREST EMERGENCY ROOM. -Please notify our office if you have recurrent angina. -Cardiac Rehab Education Provided. Participation in the Cardiopulmonary Rehabilitation program is recommended. The attending architectural drafting instructor or a nurse clinician should provide you with specificinstructions regarding activity, diet, medications, and further follow up for you. Follow the medication instructions provided on your discharge. If the dosages and instructions on this sheet differ from the dosage and instructions on the bottle, follow the instructions on the bottle. [facility] is not responsible for incorrect prescription information provided by thepatient during their visit. Do not stop your medications without consulting your health care provider. Please take the list with you to your next doctor's appointment. Instructions: Heart attack - Discharge instructions, Drug Eluting Stents, Chest pain - Discharge instructions, Mediterranean diet, Angina, Angiogram /Angioplasty / Stent Placement, Know your Meds Prescriptions: New aspirin [Children's Aspirin] 81 mg Tablet,Chewable 81 mg PO DAILY 90 Days Qty: 90 3RF metoprolol succinate [Toprol XL] 50 mg tablet extended release 24 hr 50 mg PO DAILY Qty: 90 3RF valsartan 40 mg tablet 40 mg PO DAILY Qty: 90 3RF atorvastatin [Lipitor] 80 mg tablet 80 mg PO QHS Qty: 90 3RF nitroglycerin 0.4 mg tablet, sublingual 0.4 mg sublingual Q5M PRN (Reason: chest pain) 30 Days Qty: 25 3RF Rx Instructions: until response; do not exceed 3 doses per event Brilinta 90 mg tablet 90 mg PO Q12HR 90 Days Qty: 180 3RF Continued valacyclovir 1 gram tablet 2,000 mg PO BID Qty: 4 0RF Patient Comments: Pt takes medication PRN for outbreaks. cholecalciferol (vitamin D3) [Vitamin D3] 125 mcg (5,000 unit) tablet 5,000 unit PO DAILY ascorbic acid (vitamin C) [Vitamin C] 500 mg tablet 500 mg PO DAILY tizanidine 2 mg tablet 2 mg PO Q8HR PRN (Reason: muscle spasticity) Qty: 30 0RF Other Ambulatory Orders: CPR cardiac rehab ed (Routine) Timeframe: 1 Week Location: Determined by Patient Ordered By: Javier Leon Follow Up: Kierra Mendiola DO [Active Staff - D.O.] - 03/11/24 10:00 am Beckie Balderrama MD [Primary Care Provider] - 03/02/24 10:00 am (You have been scheduled for a follow up appointment for the following date and time, please call to reschedule if needed.) Exam Physical Exam Vital Signs: Temp Pulse Resp BP Pulse Ox O2 Del Method O2 Flow Rate 98.0 F 69 18 97/55 L 96 Room Air 1 02/29/24 08:00 02/29/24 11:04 02/29/24 11:04 02/29/24 11:04 02/29/24 11:04 02/29/24 11:04 02/28/24 14:15 Diagnostic Studies Completed and Pending Studies Pending studies at discharge: 02/26/24 15:45 ECG 12 lead ECG Stat 02/29/24 10:11 Lipoprotein (a) Routine [facility] Routine Labs on day of discharge: 02/29/24 03:59: Corrected WBC 13.5 H, Uncorrected WBC Count 13.5 H, RBC 4.09, Hgb 12.7, Hct 38.3, MCV 93.6, MCH 31.0, MCHC 33.1, RDW 13.2, Plt Count 317, MPV 8.1, Neut % (Auto) 67.7, Lymph % (Auto) 20.5, [place] % (Auto) 10.1, Eos % (Auto) 0.9, Baso % (Auto) 0.8, Nucleat RBC Rel Count 0.0, Neut # (Auto) 9.2 H, Lymph # (Auto) 2.8, [place] # (Auto) 1.4 H, Eos # (Auto) 0.1, Baso # (Auto) 0.1, PHA Creatinine Clear 108.42, Sodium 141, Potassium 3.8, Chloride 108 H, Carbon Dioxide 23.6, Anion Gap 13.2, BUN 12, Creatinine 0.49 L, Est GFR (CKD-EPI) > 60.0, Glucose 106 H, Calcium 8.9 Documented By: Javier Leon MD 02/29/24 1318 Signed By: <Electronically signed by Javier Leon MD> 02/29/24 1612 [facility] Work Phone: Evaluation noteNo [employer] Other Evaluation note* Diagnosis Onset Date Resolution Status Screening for colon cancer a cute Screening mammogram for breast cancer acute Wellness examination acute [facility] Work Phone: Evaluation note* Diagnosis ASHD (arteriosclerotic heart disease) Coronary atherosclerosis of unspecified type of vessel, la posta or graft Myocardial infarction, unspecified AZ type, unspecified artery (Multi) Coronary arteriosclerosis after percutaneous transluminal coronary angioplasty (PTCA) Chronic fatigue Other malaise and fatigue Smoker Tobacco use disorder BMI 27.0-27.9,adult documented in this encounter [facility] Work Phone: Evaluation note* Diagnosis ASHD (arteriosclerotic heart disease) Coronary atherosclerosis of unspecified type of vessel, la posta or graft Myocardial infarction, unspecified AZ type, unspecified artery (Multi) Coronary arteriosclerosis after percutaneous transluminal coronary angioplasty (PTCA) BMI 26.0-26.9,adult Smoker Tobacco use disorder documented in this encounter [facility] Work Phone: History general Narrative - Reported* Type Description Date Medical History Post-menopausal Medical History Anxiety Medical History Insomnia Medical History Female cystocele Medical History Left leg swelling Surgical History APPENDECTOMY Hospitalization History SEE SURGICAL HX [facility] [employer] Other Hospital Discharge instructionsAmbulatory Orders* Referral to Gastroenterology Time Frame: 10/07/23, Location: None Selected [facility] Work Phone: Progress note Author Kierra Mendiola [facility] Note Date/Time February 29, 2024 3 :55pm [facility] [address] [place] [address] Cardiology Progress Note Signed Patient: Angela Radford MR#: [id number] : 1965 Acct:[id number] Age/Sex: 58 / F Adm Date: 5 Loc: Room: [address] [place] [address] Type: ADM IN Attending Dr: Javier Leon MD Copies to: ~ Date of Service: 02/29/2024 Subjective Principal diagnosis: Non-ST elevation AZ Interval history: Ms. Radford is a 58 year old female seen in interventional cardiology consultation at request of hospitalist and Dr. Tadeo for further interventional assessment and management of 58-year-old female who presented to outside hospital with bronchitis/cough symptomatology. At outside facility, shehad nonspecific ST changes, and initially elevated troponin at 34,000 that further jorge to 38,000; I discussed case with ER attending Dr. Corrigan, and transferred her to [facility] for further evaluation and management. After arrival here she is asymptomatic, placed on IV heparin, ECGs then began toevolve with inferolateral T wave inversions, troponin came down to 8100 then further to 7700. Last night she had recurrent chest discomfort and troponin bumped up to 11,000; with ECG evolutionary changes. This morning after discussion with Dr. Tadeo, and reviewing echocardiography, it appears she has a stuttering, late presenting, inferolateral ST elevation injury current. Patient is an active smoker; no previous history of myocardial infarction or revascularization or stroke. Think she has a family history of precocious coronary disease as reviewed Plan at this time is discussed with Dr. Tadeo's proceed with early invasivemanagement for late presenting, initially [id number] [place] with stuttering STelevation injury current developing this morning. Interim evaluation 02/29/2024: Patient is stable, without chest discomfort or shortness of breath or angina, heart failure or arrhythmia. ECG with sinus rhythm with persistent inferolateral ST T wave abnormality. Troponins not back as of this morning. Right radial access site with 3+ pulse and no hematoma. She is otherwise doing well status post primary PCI obtuse marginal branch, withchronic total occlusion distal circumflex?PDA branch. Patient will continue with DAPT x 1 year, high intensity statin, beta-jayne, low-dose lisinopril, follow-up with transitional care cardiology visit in 2 weeks, cardiac rehab and smoking cessation counseling x 10 minutes performed, discharge planning and medication review x 10 minutes performed, review of anatomy and education with patient and son x 10 minutes. Exam Physical Exam Vital Signs: Temp Pulse Resp BP Pulse Ox O2 Del Method O2 Flow Rate 98.0 F 69 18 97/55 L 96 Room Air 1 02/29/24 08:00 02/29/24 11:04 02/29/24 11:04 02/29/24 11:04 02/29/24 11:04 02/29/24 11:04 02/28/24 14:15 Const General: cooperative, healthy appearing, comfortable, no acute distress and welldeveloped Nutritional Appearance: average body habitus Orientation: alert, awake and oriented x3 HEENT Head: normal to inspection Neck Neck: normal visual inspection Chest Chest palpation & inspection: normal inspection of the chest Resp Effort & Inspection: normal respiratory effort Auscultation: clear to auscultation bilaterally Cardio Palpation: normal PMI Rate: regular rate Rhythm: regular rhythm Heart Sounds: S1 normal, S2 normal and no murmurs Pulses: radial pulses present and femoral pulses present GI Palpation: soft Skin General: no rashes or lesions noted Neuro General: patient alert, patient awake and patient oriented x3 Cognition: normal cognition Speech: speech normal Extrem General: no clubbing, cyanosis or edema Objective Labs 02/29/24 03:59 02/29/24 03:59 Labs: Laboratory Results - last 24 hr 02/29/24 03:59 Corrected WBC 13.5 H Uncorrected WBC Count 13.5 H RBC 4.09 Hgb 12.7 Hct 38.3 MCV 93.6 MCH 31.0 MCHC 33.1 RDW 13.2 Plt Count 317 MPV 8.1 Neut % (Auto) 67.7 Lymph % (Auto) 20.5 [place] % (Auto) 10.1 Eos % (Auto) 0.9 Baso % (Auto) 0.8 Nucleat RBC Rel Count 0.0 Neut # (Auto) 9.2 H Lymph # (Auto) 2.8 [place] # (Auto) 1.4 H Eos # (Auto) 0.1 Baso # (Auto) 0.1 PHA Creatinine Clear 108.42 Sodium 141 Potassium 3.8 Chloride 108 H Carbon Dioxide 23.6 Anion Gap 13.2 BUN 12 Creatinine 0.49 L Est GFR (CKD-EPI) > 60.0 Glucose 106 H Calcium 8.9 A&P - Cardiology (1) ACS (acute coronary syndrome): Code(s): I24.9 - Acute ischemic heart disease, unspecified (2) Non-ST elevation myocardial infarction (NSTEMI), initial care episode: Code(s): I21.4 - Non-ST elevation (NSTEMI) myocardial infarction (3) Tobacco abuse: Code(s): Z72.0 - Tobacco use Plan Proceed with early invasive coronary evaluation. Documented By: Kierra Mendiola DO 02/29/24 1552 Signed By: <Electronically signed by Kierra Mendiola DO> 02/29/24 1556 [facility] Work Phone: Summary Purpose Family History No Family History Records Found Relationship Condition Age at Onset Recorded Date/T kiarra father Hypertension Unknown Advance Directives No Advanced Directives Records Found Advance Directive Response Recorded Date/ Time Advance Directives No October 07, 2023 11:02am Advance Directive Response Recorded Date/ Time Advance Directives No October 1:24pm Advance Directive Response Recorded Date/ Time Advance Directives No October 12:24pm Chief Complaint and Reason for Visit Chief Complaint wellness Reason for Visit Screening for colon cancer Screening mammogram for breast cancer Wellness examination Chief Complaint wellness L Shoulder Pain Reason for Visit Screening for colon cancer Screening mammogram for breast cancer Wellness examination Chief Complaint Admit Date L Shoulder Pain December 03, 2023 1 0:20am NSTEMI February 26, 2024 2 :46pm Reason for Visit Admit Date Left shoulder pain December 03, 2023 1 0:20am Lumbar back pain with radicu lopathy affecting right lower extremity October 17th, 2024 10:20am ACS (acute coronary syndrome) February 252024 2:46pm Non-ST elevation myocardial infarction (NSTEMI), initial care episode February 26, 2024 2:46pm Tobacco abuse February 26, 2024 2 :46pm Chief Complaint Admit Date L Shoulder Pain December 03, 2023 1 0:20am NSTEMI February 26, 2024 2 :46pm Amb Documentation March 01, 2024 8 :42am STEMI March 02, 2024 9 :47am Chief Complaint Admit Date Amb Documentation March 01, 2024 8 :42am STEMI March 02, 2024 9 :47am Medical Concerns May 30, 2024 8:5 8am Reason for Visit Admit Date ACS (acute coronary syndrome) March 022024 9:47am Non-ST elevation myocardial infarction (NSTEMI), initial care episode March 02, 2024 9:47am Tobacco abuse March 02, 2024 9 :47am Additional Source Comments INFORMATION SOURCE (unrecogn ized section and content) DATE CREATED AUTHOR 02/07/2022 [facility] DATE CREATED AUTHOR AUTHOR'S ORGANIZ ATION 03/25/2024 [facility] DATE CREATED AUTHOR AUTHOR'S ORGANIZ ATION 09/09/2024 [facility] REASON FOR VISIT (unrecogniz ed section and content) Reason Comments [place]up [facility] [place] Reason Comments Follow-up 6 months ASHD (arter iosclerotic heart disease) Specialty Diagnoses / Procedures Referred By Contac t Referred To Contact Cardiology Diagnoses ASHD (arteriosclerotic heart disease) Procedures Follow Up In Cardiology Prabhjot Mendiola DO [address] [place] [id number] Phone: tel: fax: Prabhjot Mendiola DO [address] [place] [address] Phone: tel: fax: Referral ID Status Reason Start Date Expiration Date V isits Requested Visits Authorized [id number] Authorized 03/14/2024 03/14/2025 1 1 Care Teams (unrecognized sec tion and content) Team Status: Active Member Role Status Dates Beckie Balderrama MD Primary Care Provider Active Team Status: Active Member Role Status Dates Beckie Balderrama MD Primary Care Provider Active Start: March 01, 2024 Jocelyne Holliday CMA Attending Provider Active Start: March 01, 2024 Team Status: Inactive Member Role Status Dates Beckie Balderrama MD Primary Care Provide r, Attending Provider Active Start: March 02, 2024 End: March 02, 2024 Team Status: Inactive Member Role Status Dates Beckie Balderrama MD Primary Care Provide r, Attending Provider Active Start: May 30, 2024 End: May 30, 2024 Team Status: Inactive Member Role Status Dates Beckie Balderrama MD Primary Care Provide r, Attending Provider Active Start: October 07, 2023 End: October 07, 2023 Team Status: Active Member Role Status Dates Beckie Balderrama MD Primary Care Provide r, Attending Provider Active Start: October 09, 2023 Team Status: Inactive Member Role Status Dates Beckie Balderrama MD Primary Care Provide r, Attending Provider Active Start: December 03, 2023 End: December 03, 2023 Team Status: Active Member Role Status Dates Beckie Balderrama MD Primary Care Provide r, Attending Provider Active Start: February 26, 2024 Team Status: Inactive Member Role Status Dates Beckie Balderrama MD Primary Care Provider Active Start: February 26, 2024 End: February 29, 2024 Madison Munson MD Admit Provider Active Start : February 26, 2024 End: February 29, 2024 Nury Miranda RN Other Provider Active Star t: February 26, 2024 End: February 29, 2024 Kierra Mendiola DO Other Provider Active Start : February 26, 2024 End: February 29, 2024 Asha Botello MD Other Provider Active Start: February 26, 2024 End: February 29, 2024 Prabhjot Bay MD Other Provider Active Start: February 26, 2024 End: February 29, 2024 Monique Tadeo MD Other Provider Active St art: February 26, 2024 End: February 29, 2024 Socrates Melgoza MD Other Provider Active Start: February 26, 2024 End: February 29, 2024 Yesenia Stockton APRN Other Provider Active Start : February 26, 2024 End: February 29, 2024 Luz Fall MD Other Provider Active Start: J anuary 2024 End: February 29, 2024 Ai Francisco MD Other Provider Active Start: February 26, 2024 End: February 29, 2024 Opal Hamilton MD Other Provider Active Start: J anuary 2024 End: February 29, 2024 Kandace Mckeon , [facility]- Other Provider Active Sta rt: February 26, 2024 End: February 29, 2024 Javier Leon MD Attending Provider Active St art: February 26, 2024 End: February 29, 2024 Technical Internship Relationship Specialty Start Date End Date Beckie Balderrama MD [address] [place] [address] PCP - General Family Medicine 03/14/24 Jocelyne Zurita, manager [employer] 02/29/24 Technical Internship Relationship Specialty Start Date End Date Beckie Balderrama MD [address] [place] [address] PCP - General Family Medicine 03/14/24 Goals (unrecognized section and content) Goals may be documented in a n alternate section FOR RECORDS PERTAINING TO PATIENTS WHO ARE OR HAVE BEEN ENROLLED IN A CHEMICAL DEPENDENCY/SUBSTANCEABUSE PROGRAM, SOME INFORMATION MAY BE OMITTED. This clinical summary was aggregated from multiple sources. Caution should be exercised in using it in the provision of clinical care. This summary normalizes information from multiple sources, and as a consequence, information in this document may materially change the coding, format and clinical context of patient data. In addition, data may be omitted in some cases. CLINICAL DECISIONS SHOULD BE BASED ON THE PRIMARY CLINICAL RECORDS. [facility] [employer] provides no warranty or guarantee of the accuracy or completeness of information in this document.
--- NOTE | 2024-09-11 07:24 | ECG_ITS ---
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 Measurements Intervals [place] Rate: 70 P: 33 DE: 146 QRS: -29 QRSD: 84 T: -36 QT: 384 QTc: 404 Interpretive Statements 1100 Sinus rhythm 1970 with occasional ectopic premature complexes 3114 Cannot rule out anterior myocardial infarction, age undetermined ST depression and Twave abnormality, inferior and lateral ischemia 9150 abnormal ECG Compared to ECG 02/26/2024 12:43:47 Myocardial infarct finding now present ST (T wave) deviation now present Ischemia now present Electronically Signed On 09-11-2024 19:44:14 EDT by LIA DEL TORO M.D.
--- NOTE | 2024-09-11 07:24 | XR_ITS ---
[facility] [place] [id number] Patient Name: MEAGAN LANGE MRN: [id number] date: 1965 Sex: F Assigned Patient Location: ED.MAIN Current Patient Location: ED.MAIN Accession/Order Number: [id number] Exam Date: 09/11/2024 08:40 Report Date: 09/11/2024 08:41 At the request of: WALDEMAR DAVIS MD Procedure: XR shoulder RT min 2V RIGHT HUMERUS - 2 views right shoulder 2 views CLINICAL HISTORY: Atraumatic pain COMPARISON: None FINDINGS: Right shoulder: Evidence of calcific tendinitis. Mild degenerative changes involving the AC joint with inferior spurring. Glenohumeral joint appears unremarkable. No acute bony process. Right humerus: No focal soft tissue abnormality or acute bony process. XR/XR shoulder RT min 2V IMPRESSION: MILD DEGENERATIVE CHANGES INVOLVING THE RIGHT SHOULDER WITHOUT ACUTE BONY PROCESS. Impression dictated by: Vasyl Medley Jr., D.OOlga 09/11/2024 8:41 AM Dictation Location: [employer] Electronically authenticated by: [id number] Y Date: 09/11/2024 08:41
--- NOTE | 2024-09-11 07:24 | XR_ITS ---
[facility] [place] [id number] Patient Name: MEAGAN LANGE MRN: [id number] date: 1965 Sex: F Assigned Patient Location: ED.MAIN Current Patient Location: ED.MAIN Accession/Order Number: [id number] Exam Date: 09/11/2024 08:40 Report Date: 09/11/2024 08:41 At the request of: WALDEMAR DAVIS MD Procedure: XR shoulder RT min 2V RIGHT HUMERUS - 2 views right shoulder 2 views CLINICAL HISTORY: Atraumatic pain COMPARISON: None FINDINGS: Right shoulder: Evidence of calcific tendinitis. Mild degenerative changes involving the AC joint with inferior spurring. Glenohumeral joint appears unremarkable. No acute bony process. Right humerus: No focal soft tissue abnormality or acute bony process. XR/XR humerus RT IMPRESSION: MILD DEGENERATIVE CHANGES INVOLVING THE RIGHT SHOULDER WITHOUT ACUTE BONY PROCESS. Impression dictated by: Vasyl Medley Jr., D.O. 09/11/2024 8:41 AM Dictation Location: [facility] Electronically authenticated by: [id number] Y Date: 09/11/2024 08:41
--- NOTE | 2024-09-11 07:26 | ED.GENADUL1 ---
HPI HPI - General Adult General Chief complaint: Extremity Problem, Nontraumatic Stated complaint: upper extremity injury Time Seen by Provider: 09/11/24 07:20 Source: patient Mode of arrival: walk-in Limitations: no limitations History of Present Illness HPI narrative: 59-year-old female presents to the emergency department for right upper arm pain. It started hurting 4 days ago. She does not recall any unusual activity. There was no injury or heavy lifting. A few days later she went canoeing but it was already hurting then and she did not do much paddling. She does not have any chest pain. It hurts much more to move it and the pain is severe and she has noticed a bruise on the distal part of the right upper arm. The right elbow does not hurt. Related Data Home Medications ?Medication ?Instructions ?Recorded ?Confirmed aspirin 81 mg chewable tablet 1 tab PO DAILY 09/11/24 09/11/24 atorvastatin 80 mg tablet 80 mg PO BEDTIME 09/11/24 09/11/24 metoprolol succinate 25 mg 50 mg PO DAILY 09/11/24 09/11/24 tablet,extended release 24 hr nitroglycerin 0.4 mg sublingual 0.4 mg sublingual Q5M PRN chest 09/11/24 09/11/24 tablet pain ticagrelor 90 mg tablet 90 mg PO Q12H 09/11/24 09/11/24 valsartan 40 mg tablet 40 mg PO DAILY 09/11/24 09/11/24 Previous Rx's ?Medication ?Instructions ?Recorded acetaminophen 300 mg-codeine 30 mg 1 tab PO Q6H PRN pain 5 days #20 09/11/24 tablet tabs Allergies Allergy/AdvReac Type Severity Reaction Status Date / Time promethazine (From Phenergan) Allergy Anaphylaxis Verified 02/26/24 08:56 Opioid HPI Opioid Management Most Recent Opioid Data: Last Pain Scale 10 Today, 07:15 Review of Systems ROS Narrative A ten point review of systems is negative except as noted above. PFSH PFSH Social History Little interest or pleasure in doing things: not at all Feeling down, depressed, or hopeless: not at all Exam Narrative Exam Narrative: Nurses note and vital signs reviewed and patient is not hypoxic. General: The patient appears uncomfortable and is in no respiratory distress. Skin: Warm, dry, no pallor noted. There is no rash noted. There is a small bruise on the right upper arm distally. Head: Normocephalic, atraumatic Eye: Normal conjunctiva, no drainage Ears, Nose, Mouth, and Throat: oral mucosa is moist. Nares patent. Cardiovascular: Regular Rate and Rhythm Respiratory: Patient is in no distress, no accessory muscle use, lungs are clear to auscultation, no wheezing, rales or rhonchi Back: non-tender GI: Soft and Musculoskeletal: She is quite reluctant to move her right arm. There is no obvious deformity. There is no erythema or rash. Small bruise as noted above. Radial pulse 2+ and fingers have full range of motion. Neurological: A&O, normal speech Psychiatric: Cooperative, tearful Constitutional Vital Signs, click to edit/add: Last Vital Signs Temp 98.3 F 09/11/24 07:15 Pulse 72 09/11/24 07:15 Resp 16 09/11/24 07:15 BP 120/75 09/11/24 07:15 Pulse Ox 98 09/11/24 07:15 O2 Del Method Room Air 09/11/24 07:15 Course Vital Signs Vital signs: Vital Signs Temperature 98.3 F 09/11/24 07:15 Pulse Rate 72 09/11/24 07:15 Respiratory Rate 16 09/11/24 07:15 Blood Pressure 120/75 09/11/24 07:15 Pulse Oximetry 98 09/11/24 07:15 Oxygen Delivery Method Room Air 09/11/24 07:15 Temperature 98.3 F 09/11/24 07:15 Pulse Rate 72 09/11/24 07:15 Respiratory Rate 16 09/11/24 07:15 Blood Pressure 120/75 09/11/24 07:15 Pulse Oximetry 98 09/11/24 07:15 Oxygen Delivery Method Room Air 09/11/24 07:15 Medical Decision Making MDM Narrative Medical decision making narrative: Laboratory analysis including troponin is negative. X-rays show calcific tendinitis. Sling applied, application checked by me and found to be appropriate, she is neurovascular intact. She is referred to orthopedics and was provided a prescription for Tylenol 3. Treatment diagnosis and follow-up were discussed with the patient and her . Differential Diagnosis Differential Diagnosis: Muscle strain, calcific tendinitis, arthritis, fracture Lab Data Lab results reviewed: Yes I reviewed the patient's lab results Labs: Lab Results 09/11/24 Range/Units 08:03 WBC 15.3 H (4.0-11.0) 10^3/uL RBC 5.04 (4.20-5.40) 10^6/uL Hgb 16.1 H (12.0-16.0) g/dL Hct 47.4 (36.0-48.0) % MCV 94.0 (81.0-99.0) fL MCH 31.9 (26.7-34.0) pg MCHC 34.0 (29.9-35.2) g/dL RDW 13.6 (11.0-15.0) % Plt Count 369 (150-450) 10^3/uL MPV 8.8 L (9.5-13.5) fL Neut % (Auto) 78.0 H (43.0-75.0) % Lymph % (Auto) 13.1 L (20.5-60.0) % [place] % (Auto) 5.9 (1.7-12.0) % Eos % (Auto) 1.7 (0.9-7.0) % Baso % (Auto) 0.6 (0.2-2.0) % Neut # (Auto) 12.0 H (1.4-6.5) 10^3/uL Lymph # (Auto) 2.0 (1.2-3.8) 10^3/uL [place] # (Auto) 0.9 H (0.3-0.8) 10^3/uL Eos # (Auto) 0.3 (0.0-0.7) 10^3/uL Baso # (Auto) 0.1 (0.0-0.1) 10^3/uL Abs Immat Gran (auto) 0.10 H (0.00-0.03) 10^3/uL Imm/Tot Granulo (auto) 0.7 H (0.0-0.5) % Sodium 141 (136-145) mmol/L Potassium 3.9 (3.5-5.1) mmol/L Chloride 104 (98-107) mmol/L Carbon Dioxide 26.5 (21.0-32.0) mmol/L Anion Gap 14.4 BUN 10.0 (7.0-18.0) mg/dL Creatinine 0.49 L (0.55-1.02) mg/dL Est GFR ( Amer) >60 (>=60 mL/min/1.73m^2) Est GFR (Non-Af Amer) >60 (>=60 mL/min/1.73m^2) BUN/Creatinine Ratio 20.4 Glucose 102 (74-106) mg/dL Calcium 9.1 (8.5-10.1) mg/dL Troponin I High Sens 17.6 (4.0-51.3) pg/mL Imaging Data Humerus, shoulder x-rays: Radiologist's impression: ITS Impressions Humerus X-Ray 09/11/24 07:24 IMPRESSION: MILD DEGENERATIVE CHANGES INVOLVING THE RIGHT SHOULDER WITHOUT ACUTE BONY PROCESS. Impression dictated by: Vasyl Medley Jr., D.O. 09/11/2024 8:41 AM Dictation Location: [place] Electronically authenticated by: [id number] Y Date: 09/11/2024 08:41 Shoulder X-Ray 09/11/24 07:24 IMPRESSION: MILD DEGENERATIVE CHANGES INVOLVING THE RIGHT SHOULDER WITHOUT ACUTE BONY PROCESS. Impression dictated by: Vasyl Medley Jr., D.O. 09/11/2024 8:41 AM Dictation Location: [place] Electronically authenticated by: [id number] Y Date: 09/11/2024 08:41 ECG Data Attestation: I personally reviewed and interpreted this ECG as follows: (EKG on my interpretation shows normal sinus rhythm with a rate of 70 and no acute change.) Discharge Plan Discharge Chief Complaint: Extremity Problem, Nontraumatic Clinical Impression: Calcific tendinitis Patient Disposition: Home, Self-Care Time of Disposition Decision: 08:47 Condition: Good Mode of Transportation: Private Vehicle Prescriptions / Home Meds: New acetaminophen-codeine 300-30 mg tablet 1 tab PO Q6H PRN (Reason: pain) 5 Days Qty: 20 0RF No Action aspirin 81 mg tablet,chewable 1 tab PO DAILY metoprolol succinate 25 mg tablet extended release 24 hr 50 mg PO DAILY valsartan 40 mg tablet 40 mg PO DAILY ticagrelor 90 mg tablet 90 mg PO Q12H atorvastatin 80 mg tablet 80 mg PO BEDTIME nitroglycerin 0.4 mg tablet, sublingual 0.4 mg sublingual Q5M PRN (Reason: chest pain) Print Language: Kazakh Instructions: Calcific Tendinitis (ED) Referrals: Machelle Harmon MD [Primary Care Provider, Family Practice] - 1 week ALEXYS DEUTSCH [Referring] - 1 week
[2024-09-11 08:08] LABS: Hematocrit 47.4 % (36.0-48.0); Hemoglobin 16.1 g/dL (12.0-16.0); Immature Granulocytes Abs Auto 0.10 10^3/uL (0.00-0.03); Immature Granulocytes Pct Auto 0.7 % (0.0-0.5); Lymphocytes Absolute Auto 2.0 10^3/uL (1.2-3.8); Mean Corpuscular HGB Conc 34.0 g/dL (29.9-35.2); Mean Corpuscular Hemoglobin 31.9 pg (26.7-34.0); Mean Corpuscular Volume 94.0 fL (81.0-99.0); Platelet Count 369 10^3/uL (150-450); Red Blood Count 5.04 10^6/uL (4.20-5.40); White Blood Count 15.3 10^3/uL (4.0-11.0)
[2024-09-11 08:19] LABS: Anion Gap 14.4; Blood Urea Nitrogen 10.0 mg/dL (7.0-18.0); Calcium 9.1 mg/dL (8.5-10.1); Carbon Dioxide 26.5 mmol/L (21.0-32.0); Chloride 104 mmol/L (98-107); Estimated GFR (African America >60 (>=60 mL/min/1.73m^2); Estimated GFR (Non-African Ame >60 (>=60 mL/min/1.73m^2); Glucose 102 mg/dL (74-106); Potassium 3.9 mmol/L (3.5-5.1); Sodium 141 mmol/L (136-145)
== END 2024-09-11 09:03 | disposition home or self-care (01) ==
PROVIDERS: Emergency Provider Emergency Medicine; PCP Family Medicine
DX: M65.221 Calcific tendinitis, right upper arm (principal)
CPT/HCPCS: 36415; 73030; 73060; 80048; 84484; 85025; 93005; 99284